=== PATIENT | female | born 1945 ===

== ENCOUNTER 2017-02-23 23:04 | Inpatient (IN) | payer MEDICAID, OTHER ==
--- NOTE | 2017-02-24 00:02 | ED PDOC ---
Arrival/HPI <LuigiSlava - Last Filed: 02/24/17 01:51> <Shivam Yin - Last Filed: 03/07/17 03:20> - General Chief Complaint: Cough, Cold, Congestion Time Seen by Provider: 02/23/17 23:11 - History of Present Illness Narrative History of Present Illness (Text): 02/23/17 23:52 72 year old female with active nasal pharyngeal cancer complaining of congestion and left ear pain. The patient's daughter is at bedside to giving most of the history due to patient deaf and difficulty talking due to jaw pain from chemo/radiation. Daughter states that the patient has been dealing with cough and congestion for about a week. She was started on Promethazine DM by Dr. Baxter 4 days ago. The patient's cough and congestion has not improved and patient is now experiencing left ear pain. When the daughter went to visit mother nikki, the mother complained of shortness of breath so she decided to call 911. Patient states she is overall weak due to starting new cycle of chemo two weeks ago. Patient denies f/c, n/v, d/c, cp, dizziness, lightheadedness. ( Shivam Yin) Past Medical History - Provider Review Nursing Documentation Reviewed: Yes - Infectious Disease Hx of Infectious Diseases: None - Cardiac Hx Cardiac Disorders: Yes Hx Hypertension: Yes - Pulmonary Hx Respiratory Disorders: No - Neurological Hx Neurological Disorder: No - HEENT Hx HEENT Disorder: Yes Other/Comment: naso-pharyngeal CA - Renal Hx Renal Disorder: No - Endocrine/Metabolic Hx Endocrine Disorders: No Hx Diabetes Mellitus Type 1: Yes - Hematological/Oncological Hx Blood Disorders: Yes Hx Cancer: Yes (naso-pharyngeal CA) - Integumentary Hx Dermatological Disorder: No - Musculoskeletal/Rheumatological Hx Musculoskeletal Disorders: No - Gastrointestinal Hx Gastrointestinal Disorders: No - Genitourinary/Gynecological Hx Genitourinary Disorders: No - Psychiatric Hx Psychophysiologic Disorder: No Hx Substance Use: No - Surgical History Hx Section: Yes Other/Comment: Neck Surgery - Anesthesia Hx Anesthesia: Yes Hx Anesthesia Reactions: No Hx Malignant Hyperthermia: No <Shivam Yin - Last Filed: 03/07/17 03:20> Family/Social History - Physician Review Nursing Documentation Reviewed: Yes Family/Social History: Unknown Family HX Smoking Status: Former Smoker Hx Alcohol Use: No Hx Substance Use: No <AnnamariaShivam - Last Filed: 03/07/17 03:20> Allergies/Home Meds <Slava Meyers - Last Filed: 02/24/17 01:51> <AnnamariaShivam - Last Filed: 03/07/17 03:20> Allergies/Adverse Reactions: Allergies No Known Allergies Allergy (Verified 02/23/17 23:18) Review of Systems - Physician Review All systems were reviewed & negative as marked: Yes - Review of Systems Constitutional: absent: Fatigue, Fevers Eyes: Normal. absent: Vision Changes, Photophobia, Eye Pain ENT: Normal, TMJ Pain, Rhinorrhea, Sinus Congestion. absent: Sore Throat Respiratory: SOB, Cough (productive, phlegm some blood (has been occuring for many months) ). absent: Wheezing Cardiovascular: absent: Chest Pain, Palpitations, Edema, Calf Pain, Syncope Gastrointestinal: absent: Abdominal Pain, Constipation, Diarrhea, Nausea, Vomiting Genitourinary Female: absent: Dysuria, Frequency, Hematuria Musculoskeletal: Myalgias Skin: absent: Rash, Pruritis, Skin Lesions Neurological: absent: Headache, Dizziness, Disequilibrium Endocrine: Normal Hemo/Lymphatic: Normal Psychiatric: Normal <AnnamariaShivam - Last Filed: 03/07/17 03:20> Physical Exam Vital Signs Reviewed: Yes Temperature: Afebrile Blood Pressure: Normal Pulse: Tachycardic Respiratory Rate: Normal Appearance: Positive for: Ill-Appearing Pain Distress: Mild Mental Status: Positive for: Alert and Oriented X 3 - Systems Exam Head: Present: Atraumatic, Normocephalic Pupils: Present: PERRL Extroacular Muscles: Present: EOMI Conjunctiva: Present: Normal Ears: Present: Fluid, Other (deaf). No: Normal Canal (unable to visualize left ear canal. 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 No: Engorged, Purulent Mucous, Septal Deviation, Epistaxis Neck: Present: Other (hard to palpation due to radiation. ). No: Normal Range of Motion Respiratory/Chest: Present: Clear to Auscultation, Rhonchi. No: Good Air Exchange, Respiratory Distress, Accessory Muscle Use, Rales, Retracting, Tachypneic, Tender to Palpation Cardiovascular: Present: Normal S1, S2, Peripheal Pulses Present, Tachycardic. No: Regular Rate and Rhythm, Murmurs, Irregular Rhythm Abdomen: Present: Normal Bowel Sounds. No: Tenderness, Distention, Peritoneal Signs, Rebound, Guarding Upper Extremity: Present: Normal Inspection, NORMAL PULSES, Capillary Refill < 2s. No: Edema Lower Extremity: Present: Normal Inspection, NORMAL PULSES, Capillary Refill < 2 s. No: Edema, CALF TENDERNESS, Tenderness Neurological: Present: GCS=15 Skin: Present: Warm, Dry, Normal Color Psychiatric: Present: Alert, Oriented x 3, Normal Insight, Normal Concentration <Shivam Yin - Last Filed: 03/07/17 03:20> Vital Signs Temp Pulse Resp BP Pulse Ox 02/24/17 02:17 104 H 16 160/78 H 93 L 02/23/17 23:21 97.9 F 110 H 18 129/75 96 Medical Decision Making - Lab Interpretations I have reviewed the lab results: Yes - RAD Interpretation Household Coordinator: ED Physician - EKG Interpretation Interpreted by ED Physician: Yes Type: 12 lead EKG <Slava Meyers - Last Filed: 02/24/17 01:51> - Lab Interpretations I have reviewed the lab results: Yes <Shivam Yin - Last Filed: 03/07/17 03:20> ED Course and Treatment: Impression: Pt seen and evaluated with medical records clerk. Pt, whose past medical history includes nasopharyngeal cancer, presented for congestion, left ear pain, and congestion. Aware and agrees with HPI, clinincal findings, plan, and management. Plan: -- EKG -- Chest X-ray -- Labs, cardiac enzymes, BNP -- IV fluids -- Reassess and disposition Reviewed EKG, sinus tachycardia at 104 bpm[address] Non-specific ST/T wave changes. 02/24/17 01:[address] Alvarado, who requests pt go to hospitalist service. 02/24/17 01:35 Case discussed with medical records clerk operations controller, who is aware and agrees with plan. Case discussed with Dr. Steinberg, who is aware and agrees with plan. Accepts pt in to hospitalist service. 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 (Slava Meyers) Congestion/SOB - CXR - no active disease - EKG - CBC - WBC17.1, Hgb 10.5 - CMP - Na 115 - started on Hypertonic sodium 3% @30ml/hr - Troponin 0.02 - BNP 142 Left ear pain - DISPO: Admit to hospitalist service. (Shivam Yin) - Lab Interpretations Microbiology Results: Microbiology Results 02/24/17 01:40 Blood Blood Culture - Final NO GROWTH AFTER 5 DAYS 02/24/17 01:40 Blood Gram Stain - Final TEST NOT PERFORMED Lab Results: 02/24/17 00:04 02/24/17 00:04 Lab Results 02/24/17 00:04: WBC 17.1 H, RBC 3.48 L, Hgb 10.5 L, Hct 29.5 L, MCV 84.8, MCH 30.2, MCHC 35.6, RDW 12.3, Plt Count 428, MPV 8.0, Gran % 92.6 H, Lymph % (Auto ) 2.9 L, Pike % (Auto) 4.2, Eos % (Auto) 0.2 L, Baso % (Auto) 0.1, Gran # 15.81 H, Lymph # 0.5 L, Pike # 0.7 H, Eos # 0.0, Baso # 0.01, Neutrophils % (Manual) 86 H, Band Neutrophils % 4 H, Lymphocytes % (Manual) 5 L, Monocytes % (Manual) 2 , Eosinophils % (Manual) 1, Metamyelocytes % 2, Platelet Evaluation Normal 02/24/17 00:04: Sodium 115 L*, Potassium 3.7, Chloride 77 L, Carbon Dioxide 30, Anion Gap 12, BUN 16, Creatinine 0.8, Est GFR ( Amer) > 60, Est GFR (Non- Af Amer) > 60, Random Glucose 245 H, Calcium 8.8, Total Bilirubin 0.3, AST 55 H , ALT 50, Alkaline Phosphatase 81, Lactate Dehydrogenase 517, Total Creatine Kinase 417 H, CK-MB (CK-2) 17.7 H, CK-MB (CK-2) % 4.2 H, Troponin I 0.02, NT-Pro -B Natriuret Pep 142, Total Protein 6.7, Albumin 3.8, Globulin 2.9, Albumin/ Globulin Ratio 1.3 - RAD Interpretation Radiology Orders: 02/23/17 23:40 CXR [CHEST PORTABLE] [RAD] Stat - Medication Orders Current Medication Orders: Discontinued Medications Albuterol/Ipratropium (Duoneb 3 Mg/0.5 Mg (3 Ml) Ud) 3 ml IH [id number] [facility] Last Admin: 03/06/17 13:21 Dose: 3 ml Amoxicillin/Clavulanate Potassium (Augmentin 875 Mg-125 Mg Tab) 1 tab PO Q12 [facility] PRN Reason: Protocol Last Admin: 03/06/17 10:22 Dose: 1 tab Bacitracin (Bacitracin) 0 gm TOP BID [facility] Last Admin: 03/06/17 10:22 Dose: 1 applic Bupivacaine HCl (Marcaine 0.5%) Confirm Administered Dose 30 ml .ROUTE .STK-MED ONE Stop: 02/27/17 07:41 Last Admin: 02/27/17 09:08 Dose: 8 ml Cefazolin Sodium (Ancef) Confirm Administered Dose 1 gm .ROUTE .STK-MED ONE Stop: 02/24/17 11:30 Ciprofloxacin/Dexamethasone (Ciprodex Otic) 4 drop ONCE ONE PRN Reason: Protocol Stop: 02/24/17 01:45 Last Admin: 02/24/17 02:16 Dose: 4 drop Ciprofloxacin/Dexamethasone (Ciprodex Otic) 4 drop AU BID [facility] Stop: 03/02/17 23:59 Last Admin: 03/02/17 19:08 Dose: Not Given Non-Admin Reason: Patient Refused Desflurane (Suprane) Confirm Administered Dose 240 ml .ROUTE .STK-MED ONE Stop: 02/27/17 09:02 Esmolol HCl (Brevibloc) Confirm Administered Dose 100 mg IV .STK-MED ONE Stop: 02/27/17 08:26 Fentanyl (Fentanyl) Confirm Administered Dose 100 mcg .ROUTE .STK-MED ONE Stop: 02/24/17 10:45 Fentanyl (Fentanyl) Confirm Administered Dose 100 mcg .ROUTE .STK-MED ONE Stop: 02/27/17 08:12 Fentanyl (Fentanyl) Confirm Administered Dose 100 mcg .ROUTE .STK-MED ONE Stop: 02/27/17 08:38 Glycopyrrolate (Robinul) Confirm Administered Dose 0.2 mg .ROUTE .STK-MED ONE Stop: 02/27/17 08:25 Glycopyrrolate (Robinul) Confirm Administered Dose 0.6 mg .ROUTE .STK-MED ONE Stop: 02/27/17 08:53 Guaifenesin (Robitussin) 100 mg PO Q8 PRN PRN Reason: Cough Last Admin: 03/04/17 14:22 Dose: 100 mg Heparin Sodium (Porcine) (Heparin) 5,000 units SC Q8 DIONI PRN Reason: Protocol Last Admin: 03/04/17 17:55 Dose: Hydralazine HCl (Apresoline) Confirm Administered Dose 20 mg .ROUTE .STK-MED ONE Stop: 02/26/17 16:05 Hydromorphone HCl (Dilaudid) 0.5 mg IVP Q15M PRN PRN Reason: Pain, moderate (4-7) Stop: 02/27/17 11:06 Last Admin: 02/27/17 09:50 Dose: 0.5 mg Hydromorphone HCl (Dilaudid) Confirm Administered Dose 0.5 mg .ROUTE .STK-MED ONE Stop: 02/27/17 09:51 Hydromorphone HCl (Dilaudid) Confirm Administered Dose 0.5 mg .ROUTE .STK-MED ONE Stop: 02/27/17 10:03 Hydromorphone HCl (Dilaudid) 0.5 mg IVP .STK-MED ONE Stop: 02/27/17 10:06 Last Admin: 02/27/17 10:05 Dose: 0.5 mg Sodium Chloride (Sodium Chloride 0.9%) 1,000 mls @ 999 mls/hr IV .Q1H1M STA Stop: 02/24/17 01:41 Last Admin: 02/24/17 00:57 Dose: 999 mls/hr eMAR Start Stop Document 02/24/17 00:57 [email or web address] (Rec: 02/24/17 00:57 [email or web address] [id number]) Intravenous Solution Start Date 02/24/17 Start Time 00:57 End Date 02/24/17 Sodium Chloride (Hypertonic Saline 3%) 500 mls @ 30 mls/hr IV .[id number] DIONI Last Admin: 02/24/17 01:51 Dose: 30 mls/hr eMAR Start Stop Document 02/24/17 01:51 [email or web address] (Rec: 02/24/17 01:52 [email or web address] [id number]) Intravenous Solution Start Date 02/24/17 Start Time 01:52 Piperacillin Sod/Tazobactam Sod (Zosyn 3.375 In Ns 100ml) 100 mls @ 200 mls/hr IV STAT STA PRN Reason: Protocol Stop: 02/24/17 02:13 Last Admin: 02/24/17 02:16 Dose: 200 mls/hr eMAR Start Stop Document 02/24/17 02:16 [email or web address] (Rec: 02/24/17 02:16 [email or web address] [id number]) Intravenous Solution Start Date 02/24/17 Start Time 02:16 End Date 02/24/17 Piperacillin Sod/Tazobactam Sod (Zosyn 3.375 In Ns 100ml) 100 mls @ 200 mls/hr IVPB Q6 DIONI PRN Reason: Protocol Stop: 03/03/17 06:01 Last Admin: 02/24/17 12:40 Dose: 200 mls/hr eMAR Start Stop Document 02/24/17 12:40 PHANT (Rec: 02/24/17 12:41 PHANT [facility] [place] [employer]) Intravenous Solution Start Date 02/24/17 Start Time 12:40 End Date 02/24/17 End time 13:40 Total Infusion Time 60 Vancomycin HCl (Vancomycin 1gm) 1 gm in 250 mls @ 167 mls/hr IVPB STAT STA PRN Reason: Protocol Stop: 02/24/17 08:49 Last Admin: 02/24/17 08:38 Dose: 167 mls/hr eMAR Start Stop Document 02/24/17 08:38 DEL (Rec: 02/24/17 08:39 DEL [id number]) Intravenous Solution Start Date 02/24/17 Start Time 08:38 End Date 02/24/17 End time 10:10 Total Infusion Time 92 Sodium Chloride (Hypertonic Saline 3%) 500 mls @ 20 mls/hr IV .Q24H DIONI Last Admin: 02/25/17 02:11 Dose: 20 mls/hr eMAR Start Stop Document 02/25/17 02:11 B.P (Rec: 02/25/17 02:11 B.P [id number]) Intravenous Solution Start Date 02/25/17 Start Time 02:11 Insulin Human Regular 100 (units/ Sodium Chloride) 100 mls @ 5 mls/hr IV .Q20H PRN; Protocol; 5 UNITS/HR PRN Reason: TITRATE PER MD ORDER Last Titration: 02/24/17 17:35 Dose: 0 units/hr, 0 mls/hr Titration Intervention Document 02/24/17 17:35 PHANT (Rec: 02/24/17 17:36 PHANT [facility]) Titration Intake Titration Intake 0.3 Cumulative Intake 30.3 Cumulative Intake (Rx) 30.3 Waste Amount 0 Container Volume 69.7 Titration Dosing Titration Dose 0 IV Rate 0 Intake/Decrease Paused Cumulative Dose 30.3 Piperacillin Sod/Tazobactam Sod (Zosyn 4.5 Gm In Ns 100ml) 4.5 gm in 100 mls @ 200 mls/hr IVPB Q6 DIONI PRN Reason: Protocol Stop: 03/03/17 18:01 Last Admin: 03/01/17 11:39 Dose: 200 mls/hr eMAR Start Stop Document 03/01/17 11:39 YD (Rec: 03/01/17 11:40 YD [id number]) Intravenous Solution Start Date 03/01/17 Start Time 11:40 Sodium Chloride (Sodium Chloride 0.9%) 1,000 mls @ 999 mls/hr IV .Q1H1M STA Stop: 02/24/17 15:00 Last Admin: 02/24/17 14:00 Dose: 999 mls/hr eMAR Start Stop Document 02/24/17 14:00 PHANT (Rec: 02/24/17 17:17 PHANT [facility]) Intravenous Solution Start Date 02/24/17 Start Time 14:00 End Date 02/24/17 End time 15:00 Total Infusion Time 60 Sodium Chloride (Sodium Chloride 0.9%) 1,000 mls @ 999 mls/hr IV .Q1H1M STA Stop: 02/24/17 19:00 Last Admin: 02/24/17 18:00 Dose: 999 mls/hr eMAR Start Stop Document 02/24/17 18:00 PHANT (Rec: 02/24/17 20:03 PHANT [facility]) Intravenous Solution Start Date 02/24/17 Start Time 18:00 End Date 02/24/17 End time 19:00 Total Infusion Time 60 Desmopressin Acetate 4 mcg/ (Sodium Chloride) 51 mls @ 100 mls/hr IV ONCE ONE Stop: 02/25/17 09:41 Last Admin: 02/25/17 10:04 Dose: 100 mls/hr eMAR Start Stop Document 02/25/17 10:04 AE (Rec: 02/25/17 10:04 AE [facility]) Intravenous Solution Start Date 02/25/17 Start Time 10:04 End Date 02/25/17 End time 11:04 Total Infusion Time 60 Dextrose (Dextrose 5% In Water 1000 Ml) 1,000 mls @ 500 mls/hr IV .Q2H DIONI Stop: 02/25/17 13:16 Last Admin: 02/25/17 13:15 Dose: 500 mls/hr eMAR Start Stop Document 02/25/17 13:15 AE (Rec: 02/25/17 14:30 AE [facility] [place]) Intravenous Solution Start Date 02/25/17 Start Time 13:15 End Date 02/25/17 End time 14:15 Total Infusion Time 60 Dextrose (Dextrose 5% In Water 1000 Ml) 1,000 mls @ 75 mls/hr IV .[id number] DIONI Last Admin: 02/25/17 18:21 Dose: 75 mls/hr eMAR Start Stop Document 02/25/17 18:21 AE (Rec: 02/25/17 18:21 AE [facility] [place]) Intravenous Solution Start Date 02/25/17 Start Time 18:21 End Date 02/26/17 End time 06:00 Total Infusion Time 699 Potassium Chloride (Potassium Chloride 10 Meq/100 Ml) 10 meq in 100 mls @ 100 mls/hr IVPB Q2H DIONI Stop: 02/26/17 09:59 Last Admin: 02/26/17 10:33 Dose: 100 mls/hr eMAR Start Stop Document 02/26/17 10:33 MMA (Rec: 02/26/17 10:34 MMA [facility] [place]) Intravenous Solution Start Date 02/26/17 Start Time 10:34 End Date 02/26/17 End time 11:34 Total Infusion Time 60 Sodium Chloride (Sodium Chloride 0.9%) 1,000 mls @ 75 mls/hr IV .[id number] DIONI Last Admin: 02/28/17 09:01 Dose: 75 mls/hr eMAR Start Stop Document 02/28/17 09:01 DH (Rec: 02/28/17 09:02 DH [id number]) Intravenous Solution Start Date 02/28/17 Start Time 07:30 Potassium Chloride (Potassium Chloride 10 Meq/100 Ml) 10 meq in 100 mls @ 100 mls/hr IVPB Q2H DIONI Stop: 02/27/17 11:44 Last Admin: 02/27/17 18:05 Dose: 100 mls/hr eMAR Start Stop Document 02/27/17 18:05 RM (Rec: 02/27/17 18:05 RM [id number]) Intravenous Solution Start Date 02/27/17 Start Time 18:05 Lactated Ringer's (Lactated Ringer's) 1,000 mls @ 75 mls/hr IV .[id number] DIONI Stop: 02/27/17 11:06 Last Admin: 02/27/17 15:05 Dose: Heparin Sodium (Porcine) (Heparin 1000 Units/500 Ml Ns) Confirm Administered Dose 500 mls @ ud IV .STK-MED ONE Stop: 02/27/17 15:27 Dextrose (Dextrose 5% In Water 1000 Ml) 1,000 mls @ 30 mls/hr IV .Q24H ONE Stop: 02/28/17 19:29 Last Admin: 02/27/17 21:44 Dose: 30 mls/hr eMAR Start Stop Document 02/27/17 21:44 BK (Rec: 02/27/17 21:53 BK [id number]) Intravenous Solution Start Date 02/27/17 Start Time 20:30 Potassium Chloride (Potassium Chloride 20 Meq/100 Ml) 20 meq in 100 mls @ 50 mls/hr IVPB ONCE ONE Stop: 02/28/17 10:12 Last Admin: 02/28/17 08:50 Dose: 50 mls/hr eMAR Start Stop Document 02/28/17 08:50 DH (Rec: 02/28/17 08:50 DH [id number]) Intravenous Solution Start Date 02/28/17 Start Time 08:50 End Date 02/28/17 End time 10:50 Total Infusion Time 120 Potassium Chloride (Potassium Chloride 20 Meq/100 Ml) 20 meq in 100 mls @ 50 mls/hr IVPB Q2H DIONI Stop: 03/01/17 01:14 Last Admin: 03/01/17 01:18 Dose: 50 mls/hr eMAR Start Stop Document 03/01/17 01:18 BK (Rec: 03/01/17 01:18 BK [id number]) Intravenous Solution Start Date 03/01/17 Start Time 01:18 End Date 03/01/17 End time 03:18 Total Infusion Time 120 Insulin Human Lispro (Humalog Med) 0 units SC ACHS DIONI PRN Reason: Protocol Last Admin: 02/24/17 08:52 Dose: Not Given Non-Admin Reason: NPO Insulin Human Regular (Humulin R Low) 0 units SC ACHS DIONI PRN Reason: Protocol Last Admin: 03/06/17 11:42 Dose: 1 units MAR Blood Glucose Document 03/06/17 11:42 AJ (Rec: 03/06/17 11:42 AJ [place] [id number]) Blood Glucose Finger Stick Blood Glucose (70-120) 191 Subcutaneous Administrations Document 03/06/17 11:42 AJ (Rec: 03/06/17 11:42 AJ [place] [id number]) Injection Site MAR Injection Site Left Abdomen Charges for Administration # of Subcutaneous Administrations 1 Lidocaine HCl (Lidocaine 2% 20ml Vial) Confirm Administered Dose 20 ml .ROUTE .STK-MED ONE Stop: 02/27/17 15:27 Lorazepam (Ativan) 0.5 mg IVP ONCE ONE PRN Reason: Protocol Stop: 02/25/17 23:50 Last Admin: 02/26/17 00:09 Dose: 0.5 mg IVP Administration Document 02/26/17 00:09 AMA (Rec: 02/26/17 00:10 AMA [id number]) Charges for Administration # of IVP Administrations 1 Behavioural Document 02/26/17 00:09 AMA (Rec: 02/26/17 00:10 AMA [id number]) Maintenance Maintenance Dose No Nonmedicinal Nonmedicinal Interventions Activity Behavior Behavior for Medication: Anxiety Re-Assess: Reassess Psych Meds Document 02/26/17 00:39 AMA (Rec: 02/26/17 04:23 AMA [id number]) Reassess Psych Med Effective Methylprednisolone (Solu-Medrol) 20 mg IVP Q8H [facility] Last Admin: 02/28/17 11:31 Dose: 20 mg IVP Administration Document 02/28/17 11:31 DH (Rec: 02/28/17 11:32 DH [place] [id number]) Charges for Administration # of IVP Administrations 1 Methylprednisolone (Solu-Medrol) 20 mg IVP BID DIONI Last Admin: 02/28/17 18:45 Dose: 20 mg IVP Administration Document 02/28/17 18:45 DH (Rec: 02/28/17 18:45 DH [place] [id number]) Charges for Administration # of IVP Administrations 1 Metoprolol Tartrate (Lopressor) 5 mg IVP Q6H PRN PRN Reason: Systolic Blood Pressure Last Admin: 03/02/17 15:33 Dose: 5 mg IVP Administration Document 03/02/17 15:33 FJA (Rec: 03/02/17 15:35 A [place] [id number]) Charges for Administration # of IVP Administrations 1 [facility] Pulse and Blood Pressure Document 03/02/17 15:33 FJA (Rec: 03/02/17 15:35 [place] [id number]) Pulse Pulse Rate (60-90) 89 Blood Pressure Blood Pressure (100/60-150/90) 167/74 Metoprolol Tartrate (Lopressor) 25 mg PO ONCE ONE Stop: 02/27/17 15:15 Last Admin: 02/27/17 17:27 Dose: Midazolam HCl (Versed Inj) Confirm Administered Dose 2 mg .ROUTE .STK-MED ONE Stop: 02/24/17 10:45 Midazolam HCl (Versed Inj) Confirm Administered Dose 2 mg .ROUTE .STK-MED ONE Stop: 02/27/17 07:42 Morphine Sulfate (Morphine) 4 mg IVP Q4H PRN PRN Reason: Pain, moderate (4-7) Last Admin: 03/01/17 11:55 Dose: 4 mg [facility] Pain Assessment Document 03/01/17 11:55 YD (Rec: 03/01/17 11:56 YD [place] [id number]) Pain Reassessment Is this a pain reassessment? No Presence of Pain Presence of Pain Yes Pain Scale Used Pain Scale Used [place] Location Pain Location Body Site Abdomen Description Description Intermittent IVP Administration Document 03/01/17 11:55 YD (Rec: 03/01/17 11:56 YD [place] [id number]) Charges for Administration # of IVP Administrations 1 Re-Assess: [facility] Pain Assessment Document 03/01/17 12:55 YD (Rec: 03/01/17 14:42 YD [id number]) Pain Reassessment Is this a pain reassessment? Yes Sleep Is patient sleeping during reassessment? No Presence of Pain Presence of Pain No Neostigmine Methylsulfate (Neostigmine Methylsulfate) Confirm Administered Dose 6 mg IV .STK-MED ONE Stop: 02/27/17 08:54 Nystatin (Nystatin Oral Susp) 5 ml PO QID [facility] Last Admin: 03/06/17 10:27 Dose: 5 ml Ondansetron HCl (Zofran Inj) Confirm Administered Dose 4 mg .ROUTE .STK-MED ONE Stop: 02/24/17 12:02 Ondansetron HCl (Zofran Inj) 4 mg IVP ONCE PRN PRN Reason: Nausea/Vomiting Pantoprazole Sodium (Protonix Inj) 40 mg IVP DAILY [facility] Last Admin: 03/06/17 10:25 Dose: 40 mg IVP Administration Document 03/06/17 10:25 AJ (Rec: 03/06/17 10:25 AJ [place] [id number]) Charges for Administration # of IVP Administrations 1 Prednisone (Prednisone Tab) 40 mg PO DAILY [facility] Last Admin: 03/03/17 09:17 Dose: 40 mg Prednisone (Prednisone Tab) 20 mg PO DAILY [facility] Stop: 03/05/17 23:59 Last Admin: 03/05/17 10:52 Dose: 20 mg Prednisone (Prednisone Tab) 10 mg PO DAILY [facility] Stop: 03/07/17 23:59 Last Admin: 03/06/17 13:12 Dose: 10 mg Propofol (Diprivan) Confirm Administered Dose 200 mg .ROUTE .STK-MED ONE Stop: 02/24/17 10:44 Propofol (Diprivan) Confirm Administered Dose 200 mg .ROUTE .STK-MED ONE Stop: 02/27/17 08:12 Rocuronium Cotton (Zemuron) Confirm Administered Dose 50 mg .ROUTE .STK-MED ONE Stop: 02/24/17 11:31 Rocuronium Cotton (Zemuron) Confirm Administered Dose 50 mg .ROUTE .STK-MED ONE Stop: 02/27/17 08:12 Sevoflurane (Ultane Novation) Confirm Administered Dose 250 ml .ROUTE .STK-MED ONE Stop: 02/27/17 07:42 Succinylcholine Chloride (Quelicin) Confirm Administered Dose 200 mg IV .STK- MED ONE Stop: 02/24/17 10:47 - PA / HANDKERCHIEF SAMPLE CLERK / Resident Statement KENISHA has reviewed & agrees with the documentation as recorded. KENISHA has examined the patient and agrees with the treatment plan. <Slava Meyers - Last Filed: 02/24/17 01:51> Disposition/Present on Arrival <Slava Meyers - Last Filed: 02/24/17 01:51> - Present on Arrival Any Indicators Present on Arrival: No History of DVT/PE: No History of Uncontrolled Diabetes: No Urinary Catheter: No History of Decub. Ulcer: No History Surgical Site Infection Following: None - Disposition Have Diagnosis and Disposition been Completed?: Yes Disposition Time: :25 Patient Plan: Admission <Shivam Yin - Last Filed: 03/07/17 03:20> - Disposition Diagnosis: Hyponatremia, Otitis externa Disposition: HOSPITALIZED Condition: GOOD
[2017-02-24 00:38] LABS: ALB/GLOB RATIO 1.3 (1.1-1.8); ALKALINE PHOSPHATASE 81 U/L (38-126); ALT/SGPT 50 U/L (7-56); AST/SGOT 55 U/L (14-36); BILIRUBIN,TOTAL 0.3 mg/dL (0.2-1.3); BLOOD UREA NITROGEN 16 mg/dL (7-21); CALCIUM 8.8 mg/dL (8.4-10.5); CARBON DIOXIDE 30 mmol/L (21-33); CHLORIDE 77 mmol/L (98-107); GFR AFRICAN-AMERICAN > 60; GLUCOSE,RANDOM 245 mg/dL (70-110); POTASSIUM 3.7 mmol/L (3.6-5.0); TOTAL PROTEIN 6.7 g/dL (5.8-8.3)
[2017-02-24] MEDS ORDERED: Sodium Chloride 0.9% 1,000 ML IV STA ×3 (00:41→18:00)
[2017-02-24 00:44] LABS: BASO # 0.01 K/mm3 (0.0-2.0); BASO % 0.1 % (0.0-3.0); EOS % 0.2 % (1.5-5.0); GRAN # 15.81 (1.4-6.5); GRAN % 92.6 % (50.0-68.0); HEMATOCRIT 29.5 % (36.0-48.0); LYMPH # 0.5 (1.2-3.4); LYMPH % 2.9 % (22.0-35.0); MEAN CELL VOLUME 84.8 fl (80.0-105.0); MEAN CORPUSCULAR HEMOGLOBIN 30.2 pg (25.0-35.0); MEAN CORPUSCULAR HGB CONC 35.6 g/dl (31.0-37.0); MONO # 0.7 (0.1-0.6); MONO % 4.2 % (1.0-6.0); PLATELET COUNT 428 10^3/uL (120.0-450.0); RED CELL DISTRIBUTION WIDTH 12.3 % (11.5-14.5); WHITE BLOOD COUNT 17.1 10^3/ul (4.5-11.0)
[2017-02-24 00:50] LABS: TROPONIN I 0.02 ng/mL
[2017-02-24 00:59] LABS: SODIUM 115 mmol/L (132-148)
[2017-02-24] MEDS ORDERED: Sodium Chloride 3% 500 ML IV SCH (01:00)
[2017-02-24 01:16] LABS: BAND 4 % (0-2); EOSINOPHIL 1 % (0.0-3.0); METAMYELOCYTE 2 %; NEUTROPHIL 86 % (50.0-70.0)
[2017-02-24 01:17] LABS: PLATELET ESTIMATE NORMAL (NORMAL)
--- NOTE | 2017-02-24 01:36 | CP.PCM.HP ---
<SANDRA TORRES - Last Filed: 02/24/17 03:04> History of Present Illness - History of Present Illness History of Present Illness: Sandra Torres, PGY1, H&P for Dr. 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 Pt has been complaining of congestion, dry cough, and left ear pain for past 4 days, for which she received promethazine DM by Dr Baxter 4 days ago. It has helped minimally. Pt also has worsenign dysphagia (due to the left ear swelling). Pt had been given a "nerve medicine" to relieve her ear pain, but it provided minimal relief. Denies f/c/n/v/d/c, cp, diaphoresis, dizziness, lightheadedness, abdominal pain , urinary symptoms, polydipsia, polyuria, leg swelling. She does c/o malaise, denies lethargy, seizure like episodes. 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 As per daughter , pt's PMD informed the pt that her Na was low 2-3 weeks ago (doesnt remember how much it was). However, no correction was made. In ED, pt's HR 110, SR, leukocytosis 17.1 with bands 4, Hgb 10.5, Na 115, Cl 77, AST 55, CK 417, neg tropx1, bnp wnl. Pt started on 3% hypertonic saline @ 30/h, received zosyn. PMHx: Htn, DM2, Dyslipidemia, Nasopharyngeal Ca (diagnosed 2014; tx'ed with 30 rounds of radiation and chemo in 2014; chemo and radiation again in 2016; with recurrence again in 2017, tx with radiation in December, last chemo 3 weeks ago). PSH: surgical resection of nasopharygeal cancer, 2016 Meds: Please obtain home meds from pt's pharmacy in AM Allergies: NKDA Fam Hx: reviewed and noncontributory Soc Hx: Denies tobacco/etoh/illicit drug use; lives in the [facility] however here now living with her daughter and undergoing treatment at [facility] Present on Admission - Present on Admission Any Indicators Present on Admission: No History of DVT/PE: No History of Uncontrolled Diabetes: No Urinary Catheter: No Decubitus Ulcer Present: No History Surgical Site Infection Following: None Review of Systems - Review of Systems All systems: reviewed and no additional remarkable complaints except Review of Systems: as per hpi Past Patient History - Infectious Disease Hx of Infectious Diseases: None - Past Social History Smoking Status: Former Smoker - CARDIAC Hx Cardiac Disorders: Yes Hx Hypertension: Yes - PULMONARY Hx Respiratory Disorders: No - NEUROLOGICAL Hx Neurological Disorder: No - HEENT Hx HEENT Problems: Yes Other/Comment: naso-pharyngeal CA - RENAL Hx Chronic Kidney Disease: No - ENDOCRINE/METABOLIC Hx Endocrine Disorders: No Hx Diabetes Mellitus Type 1: Yes - HEMATOLOGICAL/ONCOLOGICAL Hx Blood Disorders: Yes Hx Cancer: Yes (naso-pharyngeal CA) - INTEGUMENTARY Hx Dermatological Problems: No - MUSCULOSKELETAL/RHEUMATOLOGICAL Hx Musculoskeletal Disorders: No - GASTROINTESTINAL Hx Gastrointestinal Disorders: No - GENITOURINARY/GYNECOLOGICAL Hx Genitourinary Disorders: No - PSYCHIATRIC Hx Psychophysiologic Disorder: No Hx Substance Use: No - SURGICAL HISTORY Hx Section: Yes Other/Comment: Neck Surgery - ANESTHESIA Hx Anesthesia: Yes Hx Anesthesia Reactions: No Hx Malignant Hyperthermia: No Meds Allergies/Adverse Reactions: Allergies Allergy/AdvReac Type Severity Reaction Status Date / Time No Known Allergies Allergy Verified 02/23/17 23:18 Physical Exam - Constitutional Appears: Non-toxic, Older Than Stated Age, Confused, Chronically Ill - Head Exam Head Exam: ATRAUMATIC, NORMOCEPHALIC - Eye Exam Eye Exam: EOMI, PERRL. absent: Conjunctival injection, Nystagmus, Scleral icterus Pupil Exam: PERRL - ENT Exam ENT Exam: Mucous Membranes Dry - Neck Exam Neck exam: Positive for: Lymphadenopathy, Tenderness Additional comments: +Matted appearance of neck/bilateral jaw; left jaw>bigger than right. (likely from radiation therapy) - Respiratory Exam Respiratory Exam: Decreased Breath Sounds, NORMAL BREATHING PATTERN. absent: Accessory Muscle Use, Rales, Rhonchi, Wheezes - Cardiovascular Exam Cardiovascular Exam: Tachycardia, REGULAR RHYTHM, +S1, +S2. absent: Systolic Murmur - GI/Abdominal Exam GI & Abdominal Exam: Normal Bowel Sounds, Soft. absent: Distended, Guarding, Rebound, Tenderness - Extremities Exam Extremities exam: Positive for: pedal pulses present. Negative for: calf tenderness, pedal edema, tenderness - Back Exam Back exam: absent: CVA tenderness (L), CVA tenderness (R), vertebral tenderness - Neurological Exam Neurological exam: Alert, Reflexes Normal - Psychiatric Exam Psychiatric exam: Normal Affect - Skin Skin Exam: Dry, Warm Results - Vital Signs Recent Vital Signs: Last Vital Signs Temp 97.9 F 02/23/17 23:21 Pulse 110 H 02/23/17 23:21 Resp 18 02/23/17 23:21 BP 129/75 02/23/17 23:21 Pulse Ox 96 02/23/17 23:21 - Labs Result Diagrams: 02/24/17 00:04 02/24/17 00:04 Labs: Laboratory Results - last 24 hr 02/24/17 02/24/17 00:04 00:04 WBC 17.1 H RBC 3.48 L Hgb 10.5 L Hct 29.5 L MCV 84.8 MCH 30.2 MCHC 35.6 RDW 12.3 Plt Count 428 MPV 8.0 Gran % 92.6 H Lymph % (Auto) 2.9 L Navarro % (Auto) 4.2 Eos % (Auto) 0.2 L Baso % (Auto) 0.1 Gran # 15.81 H Lymph # 0.5 L Navarro # 0.7 H Eos # 0.0 Baso # 0.01 Neutrophils % (Manual) 86 H Band Neutrophils % 4 H Lymphocytes % (Manual) 5 L Monocytes % (Manual) 2 Eosinophils % (Manual) 1 Metamyelocytes % 2 Platelet Evaluation Normal Sodium 115 L* Potassium 3.7 Chloride 77 L Carbon Dioxide 30 Anion Gap 12 BUN 16 Creatinine 0.8 Est GFR ( Amer) > 60 Est GFR (Non-Af Amer) > 60 Random Glucose 245 H Calcium 8.8 Total Bilirubin 0.3 AST 55 H ALT 50 Alkaline Phosphatase 81 Lactate Dehydrogenase 517 Total Creatine Kinase 417 H CK-MB (CK-2) 17.7 H CK-MB (CK-2) % 4.2 H Troponin I 0.02 NT-Pro-B Natriuret Pep 142 Total Protein 6.7 Albumin 3.8 Globulin 2.9 Albumin/Globulin Ratio 1.3 Assessment & Plan - Assessment and Plan (Free Text) Assessment: 72F with PMH nasopharyngeal cancer, DM, HTN, admitted for sepsis 2/2 likely left ear infection, hyponatremia, anemia. Plan: Sepsis 2/2 likely left ear infection: - HR 110, SR, luekocytosis 17.1 with bands 4, L ear painful, erythematous - f/u CXR, Blood cultures, UA, urine culture - F/u ENT, ID c/s - Received Zosyn IVx1 in ED; c/w Zosyn IV and IVF Hyponatremia: - Likely chronic - Pt has AMS, some lethargy, malaise - F/u Head CT - 3% hypertonic saline @30cc/h. Goal correction: 0.5-1 mEq/L/h; </= 8-12 meq/L/ day. Or </= 18 mEQ/L in 1st 48 hours. - CMP q 4h, f/u Na level Anemia: - Hgb 10.5. likely ACD. f/u anemia workup. Hx of nasopharyngeal cancer: -F/u Dr. Baxter's recs - Last chemo 3 weeks ago; received 5 rounds of radiation therapy at [facility] in December 2016. Hx of HTN/DM: - On ISS, lopressor prn - f/u home meds in AM DVT PPX: SCDs GI PPX: Protonix Discussed with Dr Steinberg. Jocelyne Torres, PGY1 - Date & Time Date: 02/24/17 Time: 03:03 <Yulisa Steinberg - Last Filed: 02/24/17 04:01> Results - Vital Signs Recent Vital Signs: Last Vital Signs Temp 97.9 F 02/23/17 23:21 Pulse 104 H 02/24/17 02:17 Resp 17 02/24/17 02:58 BP 160/78 H 02/24/17 02:17 Pulse Ox 96 02/24/17 02:58 - Labs Result Diagrams: 02/24/17 00:04 02/24/17 00:04 Attending/Attestation - Attestation I have personally seen and examined this patient.: Yes I have fully participated in the care of the patient.: Yes I have reviewed all pertinent clinical information: Yes Notes (Text): 02/24/17 04:00 Patient was seen when she was in ER bed # 6. Agree with history, physical examination, assessment and plan.
[2017-02-24] MEDS ORDERED: Ciprofloxacin/Dexamethasone OTIC SUSP AS ONE (01:44)
[2017-02-24] MEDS ORDERED: Piperacillin/Tazobact 3.375 gm 100 ML IV STA (01:44)
[2017-02-24] MEDS: Morphine 4 mg/ml ISec IVP PRN (03:40)
[2017-02-24 04:14] VITALS: BMI 29.2
[2017-02-24 04:47] LABS: URINE BILIRUBIN NEGATIVE (NEGATIVE); URINE BLOOD TRACE-INTACT (NEGATIVE); URINE GLUCOSE (UA) 250 mg/dL (NEGATIVE); URINE KETONE NEGATIVE (NEGATIVE); URINE LEUKOCYTE ESTERASE NEGATIVE Leu/uL (NEGATIVE); URINE PROTEIN 100 mg/dL (<30 mg/dL); URINE UROBILINOGEN 0.2 E.U./dL (<1 E.U./dL)
[2017-02-24 05:02] LABS: URINE APPEARANCE SL CLOUDY (CLEAR); URINE COLOR LIGHT YELLOW (YELLOW)
[2017-02-24 05:03] LABS: URINE BACTERIA RARE (NEG); URINE EPITHELIAL CELLS 0 - 2 /hpf (0-5); URINE WBC 0 - 2 /hpf (0-6)
[2017-02-24] MEDS: Piperacillin/Tazobact 3.375 gm 100 ML IVPB SCH ×2 (06:15→12:40)
[2017-02-24] MEDS ORDERED: Vancomycin 1gm in NS 250ml 1 GM/250 ML BAG IVPB STA (07:20)
[2017-02-24] MEDS ORDERED: Insulin Lispro (humaLOG) MEDIUM Coverage SC SCH (07:30)
[2017-02-24 07:34] LABS: BLOOD UREA NITROGEN 14 mg/dL (7-21); CALCIUM 8.7 mg/dL (8.4-10.5); CARBON DIOXIDE 27 mmol/L (21-33); CHLORIDE 81 mmol/L (98-107); GFR AFRICAN-AMERICAN > 60; POTASSIUM 3.6 mmol/L (3.6-5.0)
[2017-02-24 07:56] LABS: SODIUM 120 mmol/L (132-148)
[2017-02-24 08:00] LABS: GLUCOSE,RANDOM 304 mg/dL (70-110)
[2017-02-24 08:53] LABS: ARTERIAL BLOOD GAS HCO3 30.6 mmol/L (21-28); ARTERIAL BLOOD GAS O2 CAPACITY 19.1 mL/dl (16-24); ARTERIAL BLOOD GAS O2 CONTENT 12.6 ML/dl (15-23); ARTERIAL BLOOD GAS PH 7.23 (7.35-7.45); ARTERIAL BLOOD HGB O2 SAT 64.4 % (95.0-98.0); CARBOXYHEMOGLOBIN 1.6 % (0.5-1.5); HHB 33.5 % (0-5); METHEMOGLOBIN 0.6 % (0.0-3.0)
[2017-02-24 09:00] LABS: IRON 20 ug/dL (45-180)
[2017-02-24] MEDS: Sodium Chloride 3% 500 ML IV SCH (09:02)
--- NOTE | 2017-02-24 09:14 | RAD ---
HISTORY: sob COMPARISON: 03/22/2015 FINDINGS: LUNGS: No active pulmonary disease. PLEURA: No significant pleural effusion identified, no pneumothorax apparent. CARDIOVASCULAR: Normal. OSSEOUS STRUCTURES: No significant abnormalities. VISUALIZED UPPER ABDOMEN: Normal. OTHER FINDINGS: None. IMPRESSION: No active disease.
--- NOTE | 2017-02-24 09:35 | CT ---
PROCEDURE: CT HEAD WITHOUT CONTRAST. HISTORY: AMS, lethargy COMPARISON: None available. TECHNIQUE: Axial computed tomography images were obtained through the head/brain without intravenous contrast. Radiation dose: Total exam DLP = 822 mGy-cm. This CT exam was performed using one or more of the following dose reduction techniques: Automated exposure control, adjustment of the mA and/or kV according to patient size, and/or use of iterative reconstruction technique. FINDINGS: HEMORRHAGE: No intracranial hemorrhage. BRAIN: No mass effect or edema. No atrophy or chronic microvascular ischemic changes. VENTRICLES: Unremarkable. No hydrocephalus. CALVARIUM: Unremarkable. PARANASAL SINUSES: Ethmoid and maxillary sinusitis MASTOID AIR CELLS: There is bilateral mastoiditis and opacification of the middle ear cavity and external auditory canal OTHER FINDINGS: The report concurs with the preliminary [facility] report IMPRESSION: Ethmoid and maxillary sinusitis. Bilateral otomastoiditis. No acute intracranial findings
[2017-02-24] MEDS: MethylPREDNISolone 40 mg Vial IVP SCH ×2 (10:14→17:16)
[2017-02-24] MEDS ORDERED: Propofol 10 mg/ml Inj (20 ML) ONE (10:43)
[2017-02-24] MEDS ORDERED: Midazolam 2 MG/2 ML VIAL ONE (10:44)
[2017-02-24] MEDS ORDERED: Succinylcholine 200 mg/10 ml Inj IV ONE (10:46)
[2017-02-24] MEDS ORDERED: LIDOCAIN/EPI 1-0.001% 10ML INJ SOL IJ ONE (11:20)
[2017-02-24] MEDS ORDERED: Rocuronium 10 mg/ml (5 ml) ONE (11:30)
[2017-02-24] MEDS ORDERED: Insulin Regular 100 UNITS in Sodium Chloride 0.9% 99 ML IV PRN (12:16)
[2017-02-24 12:51] LABS: BLOOD UREA NITROGEN 12 mg/dL (7-21); CALCIUM 8.1 mg/dL (8.4-10.5); CARBON DIOXIDE 22 mmol/L (21-33); CHLORIDE 89 mmol/L (98-107); GFR AFRICAN-AMERICAN > 60; GLUCOSE,RANDOM 254 mg/dL (70-110); POTASSIUM 4.1 mmol/L (3.6-5.0); SODIUM 121 mmol/L (132-148)
--- NOTE | 2017-02-24 13:10 | CP.PCM.CON ---
History of Present Illness - History of Present Illness History of Present Illness: 72 year old female with PMH of nasopharyngeal cancer on chemotherapy and was treated with radiation therapy, HTN, DM, dyslipidemia was brought in to [facility] because of generalized weakness and shortness of breath as well as dry cough. She has also been complaining of pain on her left ear as well discharge from the ear canal. She denies fever or chills, no nausea or vomiting , no abdominal pain, no diarrhea, no dysuria. She has difficulty swallowing. She was initially admitted on telemetry but was noted to be getting more tachypneic and weak there and was brought to the ICU for closer observation and management. ENT has seen the patient and she is to undergo emergency tracheostomy. Infectious Diseases consult is requested to further evaluate and manage. Review of Systems - Review of Systems All systems: reviewed and no additional remarkable complaints except (as per HPI ) Past Patient History - Infectious Disease Hx of Infectious Diseases: None - Past Social History Smoking Status: Never Smoked - CARDIAC Hx Cardiac Disorders: Yes Hx Hypertension: Yes - PULMONARY Hx Respiratory Disorders: No - NEUROLOGICAL Hx Neurological Disorder: No - HEENT Hx HEENT Problems: Yes Other/Comment: naso-pharyngeal CA - RENAL Hx Chronic Kidney Disease: No - ENDOCRINE/METABOLIC Hx Endocrine Disorders: No Hx Diabetes Mellitus Type 1: Yes - HEMATOLOGICAL/ONCOLOGICAL Hx Blood Disorders: Yes Hx Cancer: Yes (naso-pharyngeal CA) - INTEGUMENTARY Hx Dermatological Problems: No - MUSCULOSKELETAL/RHEUMATOLOGICAL Hx Musculoskeletal Disorders: No Hx Falls: No - GASTROINTESTINAL Hx Gastrointestinal Disorders: No - GENITOURINARY/GYNECOLOGICAL Hx Genitourinary Disorders: No - PSYCHIATRIC Hx Psychophysiologic Disorder: No Hx Substance Use: No - SURGICAL HISTORY Other/Comment: Neck Surgery - ANESTHESIA Hx Anesthesia: Yes Hx Anesthesia Reactions: No Hx Malignant Hyperthermia: No Meds Allergies/Adverse Reactions: Allergies Allergy/AdvReac Type Severity Reaction Status Date / Time No Known Allergies Allergy Verified 02/23/17 23:18 - Medications Medications: Current Medications Sodium Chloride (Hypertonic Saline 3%) 500 mls @ 30 mls/hr IV .[id number] [facility] Last Admin: 02/24/17 01:51 Dose: 30 mls/hr Piperacillin Sod/Tazobactam Sod (Zosyn 3.375 In Ns 100ml) 100 mls @ 200 mls/hr IVPB Q6 DIONI PRN Reason: Protocol Stop: 02/24/17 12:29 Last Admin: 02/24/17 06:15 Dose: 200 mls/hr Insulin Human Lispro (Humalog Med) 0 units SC ACHS [facility] PRN Reason: Protocol Metoprolol Tartrate (Lopressor) 5 mg IVP Q6H PRN PRN Reason: Systolic Blood Pressure Morphine Sulfate (Morphine) 4 mg IVP Q4H PRN PRN Reason: Pain, moderate (4-7) Last Admin: 02/24/17 03:40 Dose: 4 mg Physical Exam - Constitutional Appears: Other (on BiPAP, in some respiratory distress but able to speak in short sentences) - Head Exam Head Exam: NORMAL INSPECTION - ENT Exam Additional comments: serosanguinous discharge noted from the left ear canal, with surrounding swelling - Neck Exam Neck exam: Negative for: Meningismus - Respiratory Exam Respiratory Exam: Decreased Breath Sounds - Cardiovascular Exam Cardiovascular Exam: +S1, +S2 - GI/Abdominal Exam GI & Abdominal Exam: Soft. absent: Tenderness Results - Vital Signs Recent Vital Signs: Last Vital Signs Temp 98.0 F 02/24/17 03:50 Pulse 103 H 02/24/17 04:54 Resp 18 02/24/17 03:50 BP 142/75 02/24/17 03:50 Pulse Ox 96 02/24/17 02:58 - Labs Result Diagrams: 02/24/17 00:04 02/24/17 07:20 Labs: Laboratory Results - last 24 hr 02/24/17 02/24/17 02/24/17 04:15 04:15 04:15 Serum Osmolality Urine Color Light yellow Urine Appearance Sl cloudy Urine pH 7.0 Ur Specific [place] 1.015 Urine Protein 100 H Urine Glucose (UA) 250 H Urine Ketones Negative Urine Blood Trace-intact H Urine Nitrate Negative Urine Bilirubin Negative Urine Urobilinogen 0.2 Ur Leukocyte Esterase Negative Urine RBC 1 - 3 Urine WBC 0 - 2 Ur Epithelial Cells 0 - 2 Urine Bacteria Rare Urine Osmolality 269 Ur Random Sodium 37 02/24/17 06:00 Serum Osmolality 261 L Urine Color Urine Appearance Urine pH Ur Specific [place] Urine Protein Urine Glucose (UA) Urine Ketones Urine Blood Urine Nitrate Urine Bilirubin Urine Urobilinogen Ur Leukocyte Esterase Urine RBC Urine WBC Ur Epithelial Cells Urine Bacteria Urine Osmolality Ur Random Sodium Assessment & Plan - Assessment and Plan (Free Text) Plan: Assessment Sepsis probably due to otitis externa of the left ear, R/O aspiration pneumonia with respiratory distress related to nasopharyngeal carcinoma, for tracheostomy tube placement nasopharyngeal cancer on chemotherapy and was treated with radiation therapy HTN DM dyslipidemia Plan Gave a dose of IV Vancomycin and started Zosyn pending blood and cultures from the ear; patient is to get tracheostomy by ENT will monitor clinically
[2017-02-24 13:54] LABS: FOLATE > 20.0 ng/mL
--- NOTE | 2017-02-24 14:38 | CP.PCM.PN ---
Subjective - Date & Time of Evaluation Date of Evaluation: 02/24/17 Time of Evaluation: 08:00 - Subjective Subjective: patient seen and examined in room 276. Patient was lethargic. Opening her eyes for commands. Patient had morphine earlier. No significant drooling. Objective - Vital Signs/Intake and Output Vital Signs (last 24 hours): Temp Pulse Resp BP Pulse Ox 97.8 F 87 15 136/98 H 97 02/24/17 12:00 02/24/17 13:30 02/24/17 10:50 02/24/17 12:21 02/24/17 13:30 - Medications Medications: Current Medications Ciprofloxacin/Dexamethasone (Ciprodex Otic) 4 drop AU BID [facility] Stop: 03/02/17 23:59 Heparin Sodium (Porcine) (Heparin) 5,000 units SC Q8 DIONI PRN Reason: Protocol Last Admin: 02/24/17 13:00 Dose: 5,000 units Sodium Chloride (Hypertonic Saline 3%) 500 mls @ 20 mls/hr IV .Q24H [facility] Last Admin: 02/24/17 09:02 Dose: 20 mls/hr Insulin Human Regular 100 (units/ Sodium Chloride) 100 mls @ 5 mls/hr IV .Q20H PRN; Protocol; 5 UNITS/HR PRN Reason: TITRATE PER MD ORDER Last Admin: 02/24/17 12:39 Dose: 10 units/hr, 10 mls/hr Piperacillin Sod/Tazobactam Sod (Zosyn 4.5 Gm In Ns 100ml) 4.5 gm in 100 mls @ 200 mls/hr IVPB Q6 DIONI PRN Reason: Protocol Stop: 03/03/17 18:01 Methylprednisolone (Solu-Medrol) 20 mg IVP Q8H [facility] Last Admin: 02/24/17 10:14 Dose: 20 mg Metoprolol Tartrate (Lopressor) 5 mg IVP Q6H PRN PRN Reason: Systolic Blood Pressure Morphine Sulfate (Morphine) 4 mg IVP Q4H PRN PRN Reason: Pain, moderate (4-7) Last Admin: 02/24/17 03:40 Dose: 4 mg Pantoprazole Sodium (Protonix Inj) 40 mg IVP DAILY [facility] Last Admin: 02/24/17 10:19 Dose: 40 mg - Labs Labs: 02/24/17 12:30 - Constitutional Appears: Well, Non-toxic - Head Exam Head Exam: NORMAL INSPECTION Additional comments: lethargic - Eye Exam Eye Exam: Normal appearance - ENT Exam ENT Exam: Mucous Membranes Moist - Respiratory Exam Respiratory Exam: Rhonchi - Cardiovascular Exam Cardiovascular Exam: REGULAR RHYTHM - GI/Abdominal Exam GI & Abdominal Exam: Soft, Normal Bowel Sounds. absent: Tenderness - Extremities Exam Extremities Exam: absent: Pedal Edema - Neurological Exam Neurological Exam: Alert Assessment and Plan - Assessment and Plan (Free Text) Assessment: 1.Patient is a 72-year-old female with a past medical history of recurrent nasopharyngeal cancer is admitted with generalized weakness. Found to have severe hyponatremia. Started on 3% normal saline. sodium improved from 115 to 120. 2. Lethargy; head CT is negative for any acute findings. Possibly related to sepsis/hyponatremia/hypoxia. ABG ordered. PCO2 showed CO2 retention. Started on BiPAP. 2.sepsis/sinusitis; continue Vanco and Zosyn. ID evaluation requested. 3. Nasopharyngeal carcinoma; seen by ENT. Emergency tracheostomy planned. Patient's son by the bedside. 4. History of nasopharyngeal carcinoma; patient gets treatment at [facility]. Case discussed with oncologist Dr. Flowers in detail. the patient was diagnosed in 2014. Patient had 30 rounds of radiation and 6 cycles of chemotherapy in 2014. Patient had recurrence of the tumor in 2015. the patient had radiation in December this year Patient also had chemotherapy 3 weeks ago at [facility]. We will try to get records. Case discussed with circle saw operator in detail. Monitor the patient closely in ICU. prognosis is poor.
[2017-02-24] MEDS: Ciprofloxacin/Dexamethasone OTIC SUSP AU SCH (17:15)
[2017-02-24] MEDS: Piperacill/Tazo 4.5gm in NS 4.5 GM/100 ML BAG IVPB SCH ×2 (17:15→23:08)
--- NOTE | 2017-02-24 17:25 | OP ---
PROCEDURE DATE: 02/24/2017 PREOPERATIVE DIAGNOSES: Respiratory failure, history of nasopharyngeal carcinoma. POSTOPERATIVE DIAGNOSES: Respiratory failure, history of nasopharyngeal carcinoma. PROCEDURE: Tracheotomy. SURGEON: Osiel Silva DO CLIENT APPLICATION SUPPORT SPECIALIST: Dr. Eun Andrade TYPE OF ANESTHESIA: General endotracheal. COMPLICATIONS: None. CONDITION: The patient tolerated the procedure well, was sent back to the ICU in stable condition. INDICATIONS: This patient was evaluated by the department of otolaryngology. The patient has had recurrent nasopharyngeal carcinoma with extensive radiation to the neck area. The patient came into [facility] in respiratory distress. She had thick secretions noted in her nasopharynx and her oropharynx with difficulty breathing. fiberoptic nasal laryngoscopy was performed at the bedside for the patient. The patient had significant radiation changes to her larynx and neck noticed during the examination. Her airway was visualized, but there was marked edema with thick mucous throughout her nasopharynx and oropharynx. Discussion with family regarding prognosis of the patient and need for airway protection from this point on forward. Family was agreeable to perform tracheotomy. DESCRIPTION OF PROCEDURE: After informed consent was obtained from the family both daughter and son and patient, all clearly understood the risks, benefits, and alternatives performing the procedure and were agreeable to above. The patient was transported back to the operative suite. She was adequately anesthetized by the department of anesthesia via general endotracheal tube intubation. Of note, the patient did have significant trismus and the intubation was difficult for that reason. After the patient was intubated, the patient was prepped and draped in the usual sterile fashion. A 10 mL of lidocaine with epinephrine 1:100,000 solution was infiltrated to the neck. Incision was made in vertical fashion and midline. With Bovie cautery, dissection continued down through the fibrotic tissue with both Metzenbaum scissors and Bovie cautery. The midline raphe were with Bovie and sharp dissection. The thyroid was encountered. The thyroid was transected with the Bovie and trachea was visualized. Next, incision was made with an 11 blade scalpel in a T-type fashion between the second and the third tracheal ring. Next, a #5 Shiley non-fenestrated cuffed tube was placed into the airway of anesthesia through their tube. The tube was then further sewn into position after attaching to the ventilator and checking for CO2 return, which was appropriate. Rickie soft collar was applied after suturing the tracheostomy to the skin, a 4 x 4 gauze was placed under the tracheostomy. The patient tolerated the procedure well, was sent to ICU in stable condition. Osiel Silva DO
--- NOTE | 2017-02-24 17:58 | CARD ---
APPROVED REPORT EKG Measurement Heart [id number] <Conclusion> Sinus tachycardia Rightward axis Borderline ECG
--- NOTE | 2017-02-24 18:48 | CON ---
DATE: 02/24/2017 HISTORY OF PRESENT ILLNESS: This is a 72-year-old lady with history of nasopharyngeal cancer, last chemo three weeks ago, and radiation therapy into the neck area, hypertension, diabetes, who presented [place] [facility] [place] for weakness, tiredness, dry cough and congestion. She was also complaining on left ear pain for the past four days, which was getting progressively worse. The patient also started to compliant of worsening dysphagia. The patient denies fever, chills, nausea, vomiting, diarrhea, constipation, diaphoresis, dizziness, lightheadedness. The patient denies abdominal pain, urinary symptoms, polydipsia, polyuria or leg swelling. She was managed conservatively on the floor; however, today she was noted to be in respiratory distress and ICU consult was called for further management and monitoring. Upon evaluation, the patient was found to use accessory muscles, had stridor, being lethargic. Emergent admission to ICU was recommended with special attention to upper airways management. PAST MEDICAL HISTORY: Hypertension, diabetes, dyslipidemia, nasopharyngeal cancer diagnosed in 2014 and since then treated with 30 rounds of radiation and chemo. Cancer occurred in 2017. PAST SURGICAL HISTORY: Surgical resection of the nasopharyngeal cancer in 2016. ALLERGIES: NKDA. FAMILY HISTORY: Noncontributory. SOCIAL HISTORY: The patient denies alcohol or illicit drug abuse. No tobacco smoking. The patient lives in [facility]; however, moved into [facility] with her daughter and undergoing treatment at [facility]. CURRENT MEDICATIONS: Reglan, insulin sliding scale medium protocol, Solu-Medrol 20 mg IV q.8 hours, metoprolol, p.r.n. morphine, p.r.n. Protonix daily, normal saline 20 mL/hour, and Zosyn. REVIEW OF SYSTEMS: Review of 12-point review of systems other than mentioned in history of present illness is negative. PHYSICAL EXAMINATION: VITAL SIGNS: Temperature 98, heart rate 103, blood pressure 143/75, respiratory rate 30, oxygen saturation 96% on room air. HEENT: Head and neck; there is erythema, muscle wasting, and some chronic skin changes in the neck area. LUNGS: Clear to auscultation bilaterally. HEART: Regular rate and rhythm. S1 and S2 normal. ABDOMEN: Soft, nontender, and nondistended. MUSCULOSKELETAL: No C/C/E. No tenderness. NEUROLOGIC: The patient moves all extremities spontaneously. SKIN: Moist. PSYCHIATRIC: The patient is in distress due to difficulty breathing. There is rhonchi coming from upper airways and stridor. LABORATORY DATA: WBC 17.1, hemoglobin 10.5, platelet count 428. Sodium 120, potassium 3.6, chloride 81, BUN 14, creatinine 0.7, glucose 304, calcium 8.7, AST 55, ALT 50, CPK 417. ENT evaluation revealed a lot of changes consistent with XRT mucositis in the uvula and hypopharynx, a lot of secretion, swelling of the epiglottis. ASSESSMENT AND PLAN: This is a 72-year-old lady with nasopharyngeal cancer and upper airway compromise due to combination of factors including post-radiation mucositis, pharyngitis, and cancer itself. I would proceed with emergent ENT evaluation, which was done and the patient is going for emergent intubation and tracheotomy. Anesthesiologist (Dr. Pollard) on-call was contacted and evaluating the patient at bedside as well. Procedure will be done in the operating room. Meanwhile, the patient is on antibiotics and steroids. I will continue with insulin drip as the patient's blood glucose is poorly controlled even before steroids were started. I will continue with antibiotics, septic workup. I would repeat ABG after tracheotomy is done. Would continue to maintain euvolemia, euglycemia, normothermia, and oxygen saturation of more than 90%. We will continue with deep venous thrombosis and gastrointestinal prophylaxis. ccm time 40 min Efra Walker MD [facility]
--- NOTE | 2017-02-24 19:00 | CON ---
DATE: 02/24/2017 EAR, NOSE, AND THROAT CONSULTATION REFERRING PHYSICIAN: Dr. Lynn Marie. REASON FOR CONSULTATION: Tracheostomy. HISTORY OF PRESENT ILLNESS: This is a 72-year-old female with past medical history of nasopharyngeal carcinoma status post resection, radiation and chemotherapy which is most recently finished about 3 weeks ago. She was admitted to [facility] on 02/23/2017 for congestion, left ear pain and shortness of breath. Upon admission, she was admitted to the intensive care unit with the diagnoses of sepsis, hyponatremia, anemia and history of nasopharyngeal carcinoma. Course in the ICU resulted in hypercarbic respiratory failure for which she was placed on BiPAP due to respiratory failure and history of nasopharyngeal carcinoma, the ear, nose and throat team was consulted for potential tracheostomy. Upon evaluation, the patient is awake but lethargic and is on BiPAP. Direct fiberoptic laryngoscopy at the bedside demonstrates severe mucositis to the nasopharynx and oropharynx with copious secretions which would make intubation somewhat difficult. Tracheostomy was discussed with the son and 2 daughter over the phone and at the bedside. Risk and benefits were described to them in detail and they were in agreement with procedure. PAST MEDICAL HISTORY: Significant for nasopharyngeal cancer status post radiation and chemotherapy, hypertension, diabetes, and dyslipidemia. PAST SURGICAL HISTORY: Resection of nasopharyngeal cancer 2016. MEDICATIONS: Current medications include, insulin, Metoprolol, morphine, pantoprazole, methylprednisolone and Zosyn. ALLERGIES: She has no known drug allergies. SOCIAL HISTORY: Denies tobacco, alcohol or illicit drug use. He is originally from [facility]. REVIEW OF SYSTEMS: Unable to obtain at this time. OBJECTIVE GENERAL: She is awake, alert, questionable if she is oriented. She is slightly tachypneic. On BiPAP. VITAL SIGNS: Temperature of 98, pulse 103, blood pressure 142/75, respirations 18, saturations 100% on BiPAP. EYES: Extraocular movements grossly intact. EARS: There is a drainage from the left canal with debris in the canal, cannot visualize tympanic membrane. NOSE: Patent bilaterally. No discharge on the outside. No epistaxis. ORAL CAVITY AND OROPHARYNX: Lips are very dry. She has significant trismus only able to open the mouth about 2 cm. Oral mucosa is very dry and with thick purulent secretions. Uvula is midline. FACE: There is swelling to the bilateral parotid glands with edema. NECK: [place] indurated edema consistent with postradiation changes with erythema to the bilateral neck. Trachea is midline. No adenopathy palpable. RESPIRATIONS: Slightly labored. LUNGS: Clear to auscultation bilaterally. LABORATORY DATA: She has a white blood cell count 17.1, hemoglobin 10.5, hematocrit 29. She has a blood gas pCO2 73, pO2 35, pH of 7.23 and bicarbonate 32.8. Sodium is 120, potassium 3.6, chloride 81, BUN 14, creatinine 0.7, glucose 304, and calcium 8.7. IMAGING: She has a chest x-ray from 02/23/2017 which does not show any active disease. She has a head CT from 02/24/2017 which shows ethmoid and maxillary sinusitis and bilateral fluid in the mastoid air cells. PROCEDURE: Direct fiber laryngoscopy. The direct fiberoptic laryngoscope was inserted into the patient's nasal passage and attempted to pass into the nasopharynx due to severe mucositis and inflammation of the nasopharynx, the scope was unable to be pass down into the larynx through the nasopharynx. The fiberoptic laryngoscopy scope was then inserted through the oral cavity which noted to have very dry mucosa with mucoid and purulent secretions. The scope was flexed down towards the larynx which demonstrated severe radiation changes with an enlarged epiglottis with the erythematous and edematous and erythema and edema to the entire larynx. Vocal cords were visualized however, there is a lot of secretions around the entire larynx and the entire mucosa appeared very inflamed. ASSESSMENT AND PLAN: A 72-year-old female with past medical history of nasopharyngeal carcinoma, hypertension, diabetes, who is now in hypercarbic respiratory failure, requiring emergent airway due to her history of nasopharyngeal carcinoma and severe radiation changes to the nasopharynx and oropharynx. Decision, tracheostomy would be the best option to secure the airway at this point. The benefits and risks of the procedure were discussed with the family including the son and 2 daughters at the bedside and via the phone. They have signed consent which is witnessed and placed in the chart. Keep the patient n.p.o., IV fluids. Continue antibiotics and we will take her to the operating room for tracheostomy and direct laryngoscopy at this point. The further management is as per primary team and the ICU team. Thank you for allowing us to participate in this patient's care. Osiel Silva DO [facility] # [id number]
--- NOTE | 2017-02-24 21:42 | CP.PCM.CON ---
History of Present Illness - History of Present Illness History of Present Illness: 72 year old female with a history of DM, HTN, nasopharyngeal carcinoma dx in 2015, currently on salvage therapy in [place]. The patient has received surgery, radiation and chemotherapy treatments for her malignancy and was admitted with weakness, left ear pain/discharge with concern for sepsis, impending respiratory failure with airway compromise secondary to radiation treatment s/p tracheostomy. The patient is curently vented but awake. She denies significant pain and appears comfortable. Past medical history: DM, HTN, ansopharyngeal carcinoma Past surgical history: Nasopharyngeal tumor resection Family history: Denies hematologic and oncologic problems Social history: Denies tobacco, alcohol and illicit drug use. Allergies: NKA Review of systems: All remaining review of systems including HEENT, cardiovascular, respiratory, gastrointestinal, genitourinary, musculoskeletal, dermatologic, neurologic, and psychiatric are negative unless mentioned in the HPI. Past Patient History - Infectious Disease Hx of Infectious Diseases: None - Past Social History Smoking Status: Never Smoked - CARDIAC Hx Cardiac Disorders: Yes Hx Hypertension: Yes - PULMONARY Hx Respiratory Disorders: No - NEUROLOGICAL Hx Neurological Disorder: No - HEENT Hx HEENT Problems: Yes Other/Comment: naso-pharyngeal CA - RENAL Hx Chronic Kidney Disease: No - ENDOCRINE/METABOLIC Hx Endocrine Disorders: No Hx Diabetes Mellitus Type 1: Yes - HEMATOLOGICAL/ONCOLOGICAL Hx Blood Disorders: Yes Hx Cancer: Yes (naso-pharyngeal CA) - INTEGUMENTARY Hx Dermatological Problems: No - MUSCULOSKELETAL/RHEUMATOLOGICAL Hx Musculoskeletal Disorders: No Hx Falls: No - GASTROINTESTINAL Hx Gastrointestinal Disorders: No - GENITOURINARY/GYNECOLOGICAL Hx Genitourinary Disorders: No - PSYCHIATRIC Hx Psychophysiologic Disorder: No Hx Substance Use: No - SURGICAL HISTORY Other/Comment: Neck Surgery - ANESTHESIA Hx Anesthesia: Yes Hx Anesthesia Reactions: No Hx Malignant Hyperthermia: No Meds Allergies/Adverse Reactions: Allergies Allergy/AdvReac Type Severity Reaction Status Date / Time No Known Allergies Allergy Verified 02/23/17 23:18 - Medications Medications: Current Medications Ciprofloxacin/Dexamethasone (Ciprodex Otic) 4 drop AU BID DIONI Stop: 03/02/17 23:59 Last Admin: 02/24/17 17:15 Dose: 4 drop Heparin Sodium (Porcine) (Heparin) 5,000 units SC Q8 DIONI PRN Reason: Protocol Last Admin: 02/24/17 13:00 Dose: 5,000 units Sodium Chloride (Hypertonic Saline 3%) 500 mls @ 20 mls/hr IV .Q24H [facility] Last Admin: 02/24/17 09:02 Dose: 20 mls/hr Insulin Human Regular 100 (units/ Sodium Chloride) 100 mls @ 5 mls/hr IV .Q20H PRN; Protocol; 5 UNITS/HR PRN Reason: TITRATE PER MD ORDER Last Titration: 02/24/17 17:35 Dose: 0 units/hr, 0 mls/hr Piperacillin Sod/Tazobactam Sod (Zosyn 4.5 Gm In Ns 100ml) 4.5 gm in 100 mls @ 200 mls/hr IVPB Q6 DIONI PRN Reason: Protocol Stop: 03/03/17 18:01 Last Admin: 02/24/17 17:15 Dose: 200 mls/hr Methylprednisolone (Solu-Medrol) 20 mg IVP Q8H [facility] Last Admin: 02/24/17 17:16 Dose: 20 mg Metoprolol Tartrate (Lopressor) 5 mg IVP Q6H PRN PRN Reason: Systolic Blood Pressure Morphine Sulfate (Morphine) 4 mg IVP Q4H PRN PRN Reason: Pain, moderate (4-7) Last Admin: 02/24/17 03:40 Dose: 4 mg Pantoprazole Sodium (Protonix Inj) 40 mg IVP DAILY [facility] Last Admin: 02/24/17 10:19 Dose: 40 mg Results - Vital Signs Recent Vital Signs: Last Vital Signs Temp 99.5 F 02/24/17 16:30 Pulse 83 02/24/17 20:01 Resp 15 02/24/17 10:50 BP 118/59 L 02/24/17 20:01 Pulse Ox 100 02/24/17 20:01 - Labs Result Diagrams: 02/24/17 00:04 02/24/17 12:30 Labs: Laboratory Results - last 24 hr 02/24/17 02/24/17 02/24/17 04:15 04:15 04:15 pCO2 pO2 HCO3 ABG pH ABG Total CO2 ABG O2 Saturation ABG O2 Content ABG Base Excess ABG Hemoglobin ABG Carboxyhemoglobin POC ABG HHb (Measured) ABG Methemoglobin ABG O2 Capacity Hgb O2 Saturation FiO2 Sodium Potassium Chloride Carbon Dioxide Anion Gap BUN Creatinine Est GFR ( Amer) Est GFR (Non-Af Amer) POC Glucose (mg/dL) Random Glucose Serum Osmolality Calcium Iron TIBC % Saturation Ferritin Vitamin B12 Folate Procalcitonin Urine Color Light yellow Urine Appearance Sl cloudy Urine pH 7.0 Ur Specific [place] 1.015 Urine Protein 100 H Urine Glucose (UA) 250 H Urine Ketones Negative Urine Blood Trace-intact H Urine Nitrate Negative Urine Bilirubin Negative Urine Urobilinogen 0.2 Ur Leukocyte Esterase Negative Urine RBC 1 - 3 Urine WBC 0 - 2 Ur Epithelial Cells 0 - 2 Urine Bacteria Rare Urine Osmolality 269 Ur Random Sodium 37 02/24/17 02/24/17 02/24/17 06:00 06:00 06:00 pCO2 pO2 HCO3 ABG pH ABG Total CO2 ABG O2 Saturation ABG O2 Content ABG Base Excess ABG Hemoglobin ABG Carboxyhemoglobin POC ABG HHb (Measured) ABG Methemoglobin ABG O2 Capacity Hgb O2 Saturation FiO2 Sodium Potassium Chloride Carbon Dioxide Anion Gap BUN Creatinine Est GFR ( Amer) Est GFR (Non-Af Amer) POC Glucose (mg/dL) Random Glucose Serum Osmolality 261 L Calcium Iron 20 L TIBC 292 % Saturation 7 L Ferritin 146.0 Vitamin B12 829 Folate > 20.0 Procalcitonin Urine Color Urine Appearance Urine pH Ur Specific [place] Urine Protein Urine Glucose (UA) Urine Ketones Urine Blood Urine Nitrate Urine Bilirubin Urine Urobilinogen Ur Leukocyte Esterase Urine RBC Urine WBC Ur Epithelial Cells Urine Bacteria Urine Osmolality Ur Random Sodium 02/24/17 02/24/17 02/24/17 07:20 07:30 08:45 pCO2 73 H* pO2 35.0 L* HCO3 30.6 H ABG pH 7.23 L ABG Total CO2 32.8 H ABG O2 Saturation 65.8 L ABG O2 Content 12.6 L ABG Base Excess 0.9 ABG Hemoglobin 13.9 ABG Carboxyhemoglobin 1.6 H POC ABG HHb (Measured) 33.5 H ABG Methemoglobin 0.6 ABG O2 Capacity 19.1 Hgb O2 Saturation 64.4 L FiO2 21.0 Sodium 120 L Potassium 3.6 Chloride 81 L Carbon Dioxide 27 Anion Gap 16 BUN 14 Creatinine 0.7 Est GFR ( Amer) > 60 Est GFR (Non-Af Amer) > 60 POC Glucose (mg/dL) Random Glucose 304 H* D Serum Osmolality Calcium 8.7 Iron TIBC % Saturation Ferritin Vitamin B12 Folate Procalcitonin 0.12 L Urine Color Urine Appearance Urine pH Ur Specific [place] Urine Protein Urine Glucose (UA) Urine Ketones Urine Blood Urine Nitrate Urine Bilirubin Urine Urobilinogen Ur Leukocyte Esterase Urine RBC Urine WBC Ur Epithelial Cells Urine Bacteria Urine Osmolality Ur Random Sodium 02/24/17 02/24/17 02/24/17 12:30 12:38 13:09 pCO2 pO2 HCO3 ABG pH ABG Total CO2 ABG O2 Saturation ABG O2 Content ABG Base Excess ABG Hemoglobin ABG Carboxyhemoglobin POC ABG HHb (Measured) ABG Methemoglobin ABG O2 Capacity Hgb O2 Saturation FiO2 Sodium 121 L Potassium 4.1 Chloride 89 L Carbon Dioxide 22 Anion Gap 14 BUN 12 Creatinine 0.7 Est GFR ( Amer) > 60 Est GFR (Non-Af Amer) > 60 POC Glucose (mg/dL) 295 H 295 H Random Glucose 254 H Serum Osmolality Calcium 8.1 L Iron TIBC % Saturation Ferritin Vitamin B12 Folate Procalcitonin Urine Color Urine Appearance Urine pH Ur Specific [place] Urine Protein Urine Glucose (UA) Urine Ketones Urine Blood Urine Nitrate Urine Bilirubin Urine Urobilinogen Ur Leukocyte Esterase Urine RBC Urine WBC Ur Epithelial Cells Urine Bacteria Urine Osmolality Ur Random Sodium 02/24/17 02/24/17 02/24/17 14:20 15:12 16:06 pCO2 pO2 HCO3 ABG pH ABG Total CO2 ABG O2 Saturation ABG O2 Content ABG Base Excess ABG Hemoglobin ABG Carboxyhemoglobin POC ABG HHb (Measured) ABG Methemoglobin ABG O2 Capacity Hgb O2 Saturation FiO2 Sodium Potassium Chloride Carbon Dioxide Anion Gap BUN Creatinine Est GFR ( Amer) Est GFR (Non-Af Amer) POC Glucose (mg/dL) 236 H 230 H 187 H Random Glucose Serum Osmolality Calcium Iron TIBC % Saturation Ferritin Vitamin B12 Folate Procalcitonin Urine Color Urine Appearance Urine pH Ur Specific [place] Urine Protein Urine Glucose (UA) Urine Ketones Urine Blood Urine Nitrate Urine Bilirubin Urine Urobilinogen Ur Leukocyte Esterase Urine RBC Urine WBC Ur Epithelial Cells Urine Bacteria Urine Osmolality Ur Random Sodium 02/24/17 02/24/17 02/24/17 17:15 17:19 18:21 pCO2 pO2 HCO3 ABG pH ABG Total CO2 ABG O2 Saturation ABG O2 Content ABG Base Excess ABG Hemoglobin ABG Carboxyhemoglobin POC ABG HHb (Measured) ABG Methemoglobin ABG O2 Capacity Hgb O2 Saturation FiO2 Sodium Potassium Chloride Carbon Dioxide Anion Gap BUN Creatinine Est GFR ( Amer) Est GFR (Non-Af Amer) POC Glucose (mg/dL) 107 118 H Random Glucose Serum Osmolality Calcium Iron TIBC % Saturation Ferritin Vitamin B12 Folate Procalcitonin Urine Color Urine Appearance Urine pH Ur Specific [place] Urine Protein Urine Glucose (UA) Urine Ketones Urine Blood Urine Nitrate Urine Bilirubin Urine Urobilinogen Ur Leukocyte Esterase Urine RBC Urine WBC Ur Epithelial Cells Urine Bacteria Urine Osmolality Ur Random Sodium 41 02/24/17 02/24/17 02/24/17 19:44 20:24 21:14 pCO2 pO2 HCO3 ABG pH ABG Total CO2 ABG O2 Saturation ABG O2 Content ABG Base Excess ABG Hemoglobin ABG Carboxyhemoglobin POC ABG HHb (Measured) ABG Methemoglobin ABG O2 Capacity Hgb O2 Saturation FiO2 Sodium Potassium Chloride Carbon Dioxide Anion Gap BUN Creatinine Est GFR ( Amer) Est GFR (Non-Af Amer) POC Glucose (mg/dL) 122 H 140 H 163 H Random Glucose Serum Osmolality Calcium Iron TIBC % Saturation Ferritin Vitamin B12 Folate Procalcitonin Urine Color Urine Appearance Urine pH Ur Specific [place] Urine Protein Urine Glucose (UA) Urine Ketones Urine Blood Urine Nitrate Urine Bilirubin Urine Urobilinogen Ur Leukocyte Esterase Urine RBC Urine WBC Ur Epithelial Cells Urine Bacteria Urine Osmolality Ur Random Sodium Assessment & Plan (1) Anemia Assessment and Plan: will check retic count, b12, folate, ferritin 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 Status: Acute
[2017-02-24 23:30] LABS: ARTERIAL BLOOD GAS HCO3 25.4 mmol/L (21-28); ARTERIAL BLOOD GAS O2 CAPACITY 12.7 mL/dl (16-24); ARTERIAL BLOOD GAS O2 CONTENT 12.6 ML/dl (15-23); ARTERIAL BLOOD GAS PH 7.36 (7.35-7.45); ARTERIAL BLOOD HGB O2 SAT 96.8 % (95.0-98.0); CARBOXYHEMOGLOBIN 1.8 % (0.5-1.5); METHEMOGLOBIN 0.4 % (0.0-3.0)
--- NOTE | 2017-02-25 00:37 | CON ---
DATE: 02/24/2017 NEPHROLOGY CONSULTATION HISTORY OF PRESENT ILLNESS: A 72-year-old female with past medical history of nasopharyngeal cancer, last chemo three weeks ago, hypertension and diabetes, presented with generalized weakness of the past few days. The patient also with worsening dysphagia. The patient also was found to be severely hyponatremic and nephrology hence being consulted. The patient this morning, found to be very lethargic with blood gas consistent with hypercapnia; due to history of endopharyngeal CA, ENT was called and it was felt that the patient could not be intubated through the traditional endotracheal route, therefore, the patient underwent tracheostomy and was subsequently put on mechanical ventilation. Further history is limited as the patient is currently on ventilator status post tracheostomy. PAST MEDICAL HISTORY: Hypertension, diabetes, dyslipidemia, nasopharyngeal CA (diagnosed in 2014; treated with radiation and chemo in 2014; again with chemo and radiation in 2015; with recurrence again 2017 treated with radiation in December and chemo three weeks ago). PAST SURGICAL HISTORY: Surgical resection of nasopharyngeal CA in 2016. FAMILY HISTORY: Unavailable. SOCIAL HISTORY: Denies tobacco use per chart. REVIEW OF SYSTEMS: Limited as mentioned above. HEENT: Left ear pain and deafness that is progressive. RESPIRATORY: Dry cough. GASTROINTESTINAL: No nausea, vomiting or diarrhea. CARDIOPULMONARY: No chest pain. NEUROLOGIC: No dizziness. GENITOURINARY: No urinary symptoms. PHYSICAL EXAMINATION GENERAL: In no distress. Not able to converse due to tracheostomy. VITAL SIGNS: Currently, blood pressure 136/98, heart rate 81, O2 saturation 95% on 60% FiO2 via mechanical ventilation. HEENT: Moist mucous membranes. A hard mass palpated in bilateral pharyngeal area. RESPIRATORY: Lungs clear to auscultation bilaterally. No rales, no rhonchi, no wheezes. HEART: S1 and S2 normal. No murmurs, no gallops, no rubs. ABDOMEN: Distended, soft and nontender. GENITOURINARY: No bladder distention. NEUROLOGIC: Follows commands. EXTREMITIES: No leg edema. SKIN: Warm. No cyanosis. Good capillary refill. PSYCHIATRIC: Mildly agitated. LABORATORY DATA: This morning CBC: WBC 17.1, hemoglobin 10.5, hematocrit 29.5, platelets 428. Chemistry panel on this presentation; sodium 115, potassium 3.7, chloride 77, bicarbonate 30, BUN 16, creatinine 0.8, glucose 245, calcium 8.8 and albumin 3.8. Sodium improving to 121 early this afternoon. Iron studies; iron 20, TIBC 292, iron saturation 7%. Urine studies early this morning; urine osmolality 269 and urine sodium 37. ABG done this morning; pH 7.23, PCO2 73, PO2 35, bicarbonate 30.6. ASSESSMENT AND PLAN: 1. Hyponatremia: Severe in the setting of known nasopharyngeal cancer. The patient has been having dysphagia; therefore, possibility of decreased p.o. intake and subsequent volume depletion component may be present despite not being hypotensive. The patient's sodium did improve from 115 to 120 with just isotonic saline, which is more consistent with volume depletion; however, the patient may still have significant component of syndrome of inappropriate secretion of antidiuretic hormone. We will repeat urine osmolality; if urine osmolality drops significantly then syndrome of inappropriate secretion of antidiuretic hormone is not likely. Continue 3% hypertonic saline at 20 mL/hour for now. 2. Hypertension: Unclear what medication the patient was on at home. Currently on metoprolol 5 mg IV push q.6 hours p.r.n. She can continue the same if SBP is over 160. 3. Anemia: Secondary to chronic disease as well as component of iron deficiency, may benefit from IV iron. 4. Syndrome of inappropriate secretion of antidiuretic hormone: The patient with significant leukocytosis on presentation with 4% band neutrophils seen as well, however, her calcitonin level is low currently on Zosyn 4.5 g q.6 hours per ID. No renal dose adjustment needed. 5. Hypercapnic respiratory failure: Possibly due to obstruction from nasopharyngeal cancer. Metabolic alkalosis seen on chemistry panel, likely compensatory, and should improve status post mechanical ventilation. Continue to monitor partial pressure of carbon dioxide. Herminio Real MD
[2017-02-25] MEDS: MethylPREDNISolone 40 mg Vial IVP SCH ×3 (02:03→18:21)
[2017-02-25] MEDS: Sodium Chloride 3% 500 ML IV SCH (02:11)
[2017-02-25] MEDS: Piperacill/Tazo 4.5gm in NS 4.5 GM/100 ML BAG IVPB SCH ×4 (05:05→23:24)
[2017-02-25 08:51] LABS: GRAN # 17.93 (1.4-6.5); GRAN % 96.2 % (50.0-68.0); HEMATOCRIT 29.2 % (36.0-48.0); LYMPH # 0.3 (1.2-3.4); LYMPH % 1.5 % (22.0-35.0); MEAN CELL VOLUME 87.2 fl (80.0-105.0); MEAN CORPUSCULAR HEMOGLOBIN 29.6 pg (25.0-35.0); MEAN CORPUSCULAR HGB CONC 33.9 g/dl (31.0-37.0); MEAN PLATELET VOLUME 7.8 fl (7.0-11.0); MONO # 0.4 (0.1-0.6); MONO % 2.3 % (1.0-6.0); RED CELL DISTRIBUTION WIDTH 12.7 % (11.5-14.5); WHITE BLOOD COUNT 18.6 10^3/ul (4.5-11.0)
[2017-02-25 09:02] LABS: ALB/GLOB RATIO 1.1 (1.1-1.8); BILIRUBIN,TOTAL 0.3 mg/dL (0.2-1.3); CALCIUM 8.9 mg/dL (8.4-10.5); POTASSIUM 3.4 mmol/L (3.6-5.0); TOTAL PROTEIN 6.5 g/dL (5.8-8.3)
[2017-02-25] MEDS: Ciprofloxacin/Dexamethasone OTIC SUSP AU SCH ×2 (10:03→18:22)
--- NOTE | 2017-02-25 10:40 | CP.PCM.PN ---
Subjective - Date & Time of Evaluation Date of Evaluation: 02/25/17 Time of Evaluation: 09:10 - Subjective Subjective: Patient had tracheostomy done yesterday, breathing better. She communicates by pen and paper currently. States she does not have ear pain, and decrease in left ear discharge. No fevers overnight. Objective - Vital Signs/Intake and Output Vital Signs (last 24 hours): Temp Pulse Resp BP Pulse Ox 98.5 F 90 24 139/70 100 02/25/17 04:00 02/25/17 06:50 02/25/17 05:50 02/25/17 06:45 02/25/17 06:50 - Medications Medications: Current Medications Ciprofloxacin/Dexamethasone (Ciprodex Otic) 4 drop AU BID [facility] Stop: 03/02/17 23:59 Last Admin: 02/24/17 17:15 Dose: 4 drop Heparin Sodium (Porcine) (Heparin) 5,000 units SC Q8 [facility] PRN Reason: Protocol Last Admin: 02/25/17 05:05 Dose: 5,000 units Sodium Chloride (Hypertonic Saline 3%) 500 mls @ 20 mls/hr IV .Q24H [facility] Last Admin: 02/25/17 02:11 Dose: 20 mls/hr Insulin Human Regular 100 (units/ Sodium Chloride) 100 mls @ 5 mls/hr IV .Q20H PRN; Protocol; 5 UNITS/HR PRN Reason: TITRATE PER MD ORDER Last Titration: 02/24/17 17:35 Dose: 0 units/hr, 0 mls/hr Piperacillin Sod/Tazobactam Sod (Zosyn 4.5 Gm In Ns 100ml) 4.5 gm in 100 mls @ 200 mls/hr IVPB Q6 [facility] PRN Reason: Protocol Stop: 03/03/17 18:01 Last Admin: 02/25/17 05:05 Dose: 200 mls/hr Methylprednisolone (Solu-Medrol) 20 mg IVP Q8H [facility] Last Admin: 02/25/17 02:03 Dose: 20 mg Metoprolol Tartrate (Lopressor) 5 mg IVP Q6H PRN PRN Reason: Systolic Blood Pressure Morphine Sulfate (Morphine) 4 mg IVP Q4H PRN PRN Reason: Pain, moderate (4-7) Last Admin: 02/24/17 03:40 Dose: 4 mg Pantoprazole Sodium (Protonix Inj) 40 mg IVP DAILY [facility] Last Admin: 02/24/17 10:19 Dose: 40 mg - Labs Labs: 02/24/17 12:30 - Constitutional Appears: Chronically Ill - Head Exam Head Exam: NORMAL INSPECTION - ENT Exam Additional comments: swelling noted on the left sided, with decreased left ear discharge - Neck Exam Neck Exam: absent: Meningismus Additional comments: trachesotomy tube in place - Respiratory Exam Respiratory Exam: Decreased Breath Sounds - Cardiovascular Exam Cardiovascular Exam: +S1, +S2 - GI/Abdominal Exam GI & Abdominal Exam: Soft. absent: Tenderness Assessment and Plan - Assessment and Plan (Free Text) Plan: Assessment Sepsis probably due to otitis externa of the left ear, slowly improving S/P respiratory distress related to nasopharyngeal carcinoma, S/P tracheostomy tube placement POD #1 nasopharyngeal cancer on chemotherapy and was treated with radiation therapy HTN DM dyslipidemia Plan Gave a dose of IV Vancomycin and continue Zosyn day 2 pending blood and cultures from the ear; ENT also following the patient will continue to monitor clinically
[2017-02-25 12:38] LABS: ARTERIAL BLOOD GAS HCO3 24.2 mmol/L (21-28); ARTERIAL BLOOD GAS O2 CAPACITY 12.9 mL/dl (16-24); ARTERIAL BLOOD GAS O2 CONTENT 12.7 ML/dl (15-23); ARTERIAL BLOOD HGB O2 SAT 95.9 % (95.0-98.0); CARBOXYHEMOGLOBIN 1.3 % (0.5-1.5); HHB 1.5 % (0-5); METHEMOGLOBIN 1.2 % (0.0-3.0)
[2017-02-25 13:05] LABS: POTASSIUM 3.5 mmol/L (3.6-5.0)
--- NOTE | 2017-02-25 13:05 | RAD ---
HISTORY: s/p trach COMPARISON: 02/24/2017 FINDINGS: LUNGS: No active pulmonary disease. PLEURA: No significant pleural effusion identified, no pneumothorax apparent. CARDIOVASCULAR: Normal. OSSEOUS STRUCTURES: No significant abnormalities. VISUALIZED UPPER ABDOMEN: Normal. OTHER FINDINGS: None. IMPRESSION: No active disease.
--- NOTE | 2017-02-25 18:02 | CP.PCM.PN ---
<Burt Guan - Last Filed: 02/25/17 18:20> Subjective - Date & Time of Evaluation Date of Evaluation: 02/25/17 Time of Evaluation: 07:59 - Subjective Subjective: This patient was seen and examined at bedside this morning. The patient has an trach placed. The patient communicated via paper and pen due to her hearing loss. The patient reports weakness when walking. The remainder of the ROS was difficult to obtain due to her hearing loss and tracheostomy. Objective - Vital Signs/Intake and Output Vital Signs (last 24 hours): Temp Pulse Resp BP Pulse Ox 98.5 F 90 24 139/70 100 02/25/17 04:00 02/25/17 06:50 02/25/17 05:50 02/25/17 06:45 02/25/17 06:50 Intake and Output: 02/25/17 02/25/17 06:59 18:59 Intake Total 440 Output Total 400 Balance 40 - Medications Medications: Current Medications Ciprofloxacin/Dexamethasone (Ciprodex Otic) 4 drop AU BID [facility] Stop: 03/02/17 23:59 Last Admin: 02/25/17 10:03 Dose: 4 drop Heparin Sodium (Porcine) (Heparin) 5,000 units SC Q8 [facility] PRN Reason: Protocol Last Admin: 02/25/17 14:29 Dose: 5,000 units Insulin Human Regular 100 (units/ Sodium Chloride) 100 mls @ 5 mls/hr IV .Q20H PRN; Protocol; 5 UNITS/HR PRN Reason: TITRATE PER MD ORDER Last Titration: 02/24/17 17:35 Dose: 0 units/hr, 0 mls/hr Piperacillin Sod/Tazobactam Sod (Zosyn 4.5 Gm In Ns 100ml) 4.5 gm in 100 mls @ 200 mls/hr IVPB Q6 [facility] PRN Reason: Protocol Stop: 03/03/17 18:01 Last Admin: 02/25/17 12:01 Dose: 200 mls/hr Methylprednisolone (Solu-Medrol) 20 mg IVP Q8H [facility] Last Admin: 02/25/17 10:03 Dose: 20 mg Metoprolol Tartrate (Lopressor) 5 mg IVP Q6H PRN PRN Reason: Systolic Blood Pressure Morphine Sulfate (Morphine) 4 mg IVP Q4H PRN PRN Reason: Pain, moderate (4-7) Last Admin: 02/24/17 03:40 Dose: 4 mg Pantoprazole Sodium (Protonix Inj) 40 mg IVP DAILY [facility] Last Admin: 02/25/17 10:04 Dose: 40 mg - Labs Labs: 02/25/17 08:30 02/25/17 12:00 - Head Exam Head Exam: ATRAUMATIC, NORMAL INSPECTION, NORMOCEPHALIC - Eye Exam Eye Exam: EOMI, Normal appearance, PERRL Pupil Exam: NORMAL ACCOMODATION, PERRL - ENT Exam ENT Exam: Mucous Membranes Moist - Neck Exam Neck Exam: Normal Inspection Additional comments: Tracheostomy placed. - Respiratory Exam Respiratory Exam: Clear to Ausculation Bilateral, NORMAL BREATHING PATTERN. absent: Accessory Muscle Use, Chest Wall Tenderness - Cardiovascular Exam Cardiovascular Exam: REGULAR RHYTHM, +S1, +S2 - GI/Abdominal Exam GI & Abdominal Exam: Soft, Normal Bowel Sounds. absent: Guarding, Tenderness - Extremities Exam Extremities Exam: Full ROM. absent: Tenderness - Neurological Exam Neurological Exam: Alert, Awake, CN II-XII Intact - Psychiatric Exam Psychiatric exam: Normal Affect - Skin Skin Exam: Dry, Intact Assessment and Plan - Assessment and Plan (Free Text) Assessment: 1.Patient is a 72-year-old female with a past medical history of recurrent nasopharyngeal cancer is admitted with generalized weakness. Found to have severe hyponatremia Plan: Respiratory: -Patient s/p respiratory distress likely due to Nasopharyngeal carcinoma. -Patient s/p tracheotomy Day#1 -Patient vital signs are stable and patient was alert and oriented this morning. -Will continue to monitor airway management -Speech and Swallow Eval ordered. ID: Sepsis most likely d/t Otomastoiditis -Blood and ear cx are still pending. -Continue Zosyn (Day 2) -IV vancomycin started -ENT consult following. F/U with Recs. -Continue to monitor VS for signs. Cardiovascular -continue home medications Hematology/Oncology: -Patient gets treatment at [facility]. -Case discussed with oncologist Dr. Flowers in detail. -Patient diganosed in 2014 and had 30 rounds of radiation and 6 cycles of chemotherapy in 2014. Patient had recurrence of tumor in 2016. Patient recently had radiation in December(2016) and most recent chemotherapy was 3 weeks at [facility]. -Dr. [place] aware of current clinical picture. Will f/u with recs. Nephrology: Hypokalemia -K 3.3. Will replete. Will monitor with serial CMP's. GI ppx -continue protonix DVT ppx -continue SCD's <Sarah Quintero - Last Filed: 02/26/17 08:14> Objective - Vital Signs/Intake and Output Vital Signs (last 24 hours): Temp Pulse Resp BP Pulse Ox 98.4 F 65 16 174/72 H 100 02/26/17 04:00 02/26/17 06:20 02/26/17 06:00 02/26/17 06:15 02/26/17 06:20 - Medications Medications: Current Medications Ciprofloxacin/Dexamethasone (Ciprodex Otic) 4 drop AU BID [facility] Stop: 03/02/17 23:59 Last Admin: 02/25/17 18:22 Dose: 4 drop Heparin Sodium (Porcine) (Heparin) 5,000 units SC Q8 [facility] PRN Reason: Protocol Last Admin: 02/26/17 04:59 Dose: 5,000 units Insulin Human Regular 100 (units/ Sodium Chloride) 100 mls @ 5 mls/hr IV .Q20H PRN; Protocol; 5 UNITS/HR PRN Reason: TITRATE PER MD ORDER Last Titration: 02/24/17 17:35 Dose: 0 units/hr, 0 mls/hr Piperacillin Sod/Tazobactam Sod (Zosyn 4.5 Gm In Ns 100ml) 4.5 gm in 100 mls @ 200 mls/hr IVPB Q6 [facility] PRN Reason: Protocol Stop: 03/03/17 18:01 Last Admin: 02/26/17 05:00 Dose: 200 mls/hr Potassium Chloride (Potassium Chloride 10 Meq/100 Ml) 10 meq in 100 mls @ 100 mls/hr IVPB Q2H [facility] Stop: 02/26/17 09:59 Sodium Chloride (Sodium Chloride 0.9%) 1,000 mls @ 75 mls/hr IV .[id number] [facility] Methylprednisolone (Solu-Medrol) 20 mg IVP Q8H [facility] Last Admin: 02/26/17 01:08 Dose: 20 mg Metoprolol Tartrate (Lopressor) 5 mg IVP Q6H PRN PRN Reason: Systolic Blood Pressure Morphine Sulfate (Morphine) 4 mg IVP Q4H PRN PRN Reason: Pain, moderate (4-7) Last Admin: 02/24/17 03:40 Dose: 4 mg Pantoprazole Sodium (Protonix Inj) 40 mg IVP DAILY [facility] Last Admin: 02/25/17 10:04 Dose: 40 mg - Labs Labs: 02/26/17 06:25 02/26/17 06:25 Attending/Attestation - Attestation I have personally seen and examined this patient.: Yes I have fully participated in the care of the patient.: Yes I have reviewed all pertinent clinical information, including history, physical exam and plan: Yes Notes (Text): 02/26/17 08:10 Attending note ; Patient seen and examined with the resident . 1.Patient is a 72-year-old female with a past medical history of recurrent nasopharyngeal cancer is admitted with generalized weakness. Found to have severe hyponatremia. Hyponatremia resolved. Continue IV fluids. Monitor sodium closely. Nephrology evaluation appreciated. 2.sepsis/sinusitis on Otomastoiditis; continue Zosyn. Continue Ciprodex drops. ID evaluation appreciated. 3. Nasopharyngeal carcinoma; seen by ENT. Emergency tracheostomy done. Weaning trial in process. Patient's daughter by the bedside. 4. History of nasopharyngeal carcinoma; patient gets treatment at [facility]. Case discussed with oncologist Dr. Baxter in detail. 5. Surgery evaluation requested for G-tube. Speech and swallow evaluation appreciated. Patient is high-risk for aspiration. 6. Diabetes ; continue insulin drip . 7.GI prophylaxis with Protonix. The diagnosis and treatment option discussed with patient's daughter in detail. surgical services manager evaluation requested for discharge planning.
--- NOTE | 2017-02-25 18:25 | CP.PCM.PN ---
Subjective - Date & Time of Evaluation Date of Evaluation: 02/25/17 Time of Evaluation: 11:00 - Subjective Subjective: Patient not mentioning any complaints; has been communicating via writing s/p trach yesterday; has had to be suctioned frequently; Objective - Vital Signs/Intake and Output Vital Signs (last 24 hours): Temp Pulse Resp BP Pulse Ox 98.5 F 90 24 139/70 100 02/25/17 04:00 02/25/17 06:50 02/25/17 05:50 02/25/17 06:45 02/25/17 06:50 Intake and Output: 02/25/17 02/25/17 06:59 18:59 Intake Total 440 Output Total 400 Balance 40 - Medications Medications: Current Medications Ciprofloxacin/Dexamethasone (Ciprodex Otic) 4 drop AU BID [facility] Stop: 03/02/17 23:59 Last Admin: 02/25/17 18:22 Dose: 4 drop Heparin Sodium (Porcine) (Heparin) 5,000 units SC Q8 [facility] PRN Reason: Protocol Last Admin: 02/25/17 14:29 Dose: 5,000 units Insulin Human Regular 100 (units/ Sodium Chloride) 100 mls @ 5 mls/hr IV .Q20H PRN; Protocol; 5 UNITS/HR PRN Reason: TITRATE PER MD ORDER Last Titration: 02/24/17 17:35 Dose: 0 units/hr, 0 mls/hr Piperacillin Sod/Tazobactam Sod (Zosyn 4.5 Gm In Ns 100ml) 4.5 gm in 100 mls @ 200 mls/hr IVPB Q6 [facility] PRN Reason: Protocol Stop: 03/03/17 18:01 Last Admin: 02/25/17 12:01 Dose: 200 mls/hr Dextrose (Dextrose 5% In Water 1000 Ml) 1,000 mls @ 75 mls/hr IV .[id number] [facility] Last Admin: 02/25/17 18:21 Dose: 75 mls/hr Methylprednisolone (Solu-Medrol) 20 mg IVP Q8H [facility] Last Admin: 02/25/17 18:21 Dose: 20 mg Metoprolol Tartrate (Lopressor) 5 mg IVP Q6H PRN PRN Reason: Systolic Blood Pressure Morphine Sulfate (Morphine) 4 mg IVP Q4H PRN PRN Reason: Pain, moderate (4-7) Last Admin: 02/24/17 03:40 Dose: 4 mg Pantoprazole Sodium (Protonix Inj) 40 mg IVP DAILY [facility] Last Admin: 02/25/17 10:04 Dose: 40 mg - Labs Labs: 02/25/17 08:30 02/25/17 12:00 - Constitutional Appears: Non-toxic, No Acute Distress - Eye Exam Eye Exam: Normal appearance - ENT Exam ENT Exam: Mucous Membranes Moist - Neck Exam Additional comments: hard sublingual palpable mass bilaterally; - Respiratory Exam Respiratory Exam: Clear to Ausculation Bilateral. absent: Respiratory Distress - Cardiovascular Exam Cardiovascular Exam: RRR, +S1, +S2 - GI/Abdominal Exam GI & Abdominal Exam: Soft. absent: Distended - Back Exam Back Exam: NORMAL INSPECTION - Neurological Exam Neurological Exam: Alert, Awake - Skin Skin Exam: Normal Color, Warm Assessment and Plan (1) Hyponatremia Assessment & Plan: At least partially due to volume depletion (currently euvolemic); rapid overcorrection; serum sodium lowered urgently today using desmopressin and D5W boluses; repeat serum Na acceptable; repeating again this evening; goal is 6-8 meq/L rise over 24 hrs (ie. low 130's is acceptable for this evening); will continue to monitor; Status: Acute
[2017-02-25 18:27] LABS: BLOOD UREA NITROGEN 18 mg/dL (7-21); CALCIUM 8.8 mg/dL (8.4-10.5); CARBON DIOXIDE 27 mmol/L (21-33); CHLORIDE 97 mmol/L (98-107); GFR AFRICAN-AMERICAN > 60; GLUCOSE,RANDOM 233 mg/dL (70-110); POTASSIUM 3.4 mmol/L (3.6-5.0); SODIUM 132 mmol/L (132-148)
--- NOTE | 2017-02-25 21:45 | CP.PCM.CON ---
History of Present Illness - History of Present Illness History of Present Illness: General Surgery Consult Re: Gastrostomy tube placement HPI: Reviewed medical records and communicated with patient for history. 72F with nasopharyngeal carcinoma on salvage therapy. Pt has received surgery, radiation and chemotherapy treatments for her malignancy (most recently 3 weeks ago) and was admitted with weakness, left ear pain/discharge with possible sepsis, impending respiratory failure with airway compromise secondary to radiation treatment now s/p tracheostomy. Surgery consulted for G tube placement. Pt is deaf and unable to speak with recent trach so she communicated through writing. She denies significant pain and appears comfortable on the vent. Reports she has been able to eat soft foods + liquids and would like to try first before any tube is placed. A swallow eval has been ordered. PMH: DM, HTN, DLD, nasopharyngeal carcinoma PSH: Nasopharyngeal tumor resection (2016) SH: No tobacco, alcohol and illicit drug use. All: NKDA Meds: See MAR, on methylprednisolone 20mg Q8H Review of Systems - Review of Systems Review of Systems: Difficult to elucidate due to communication method. pt denied any complaints. Past Patient History - Infectious Disease Hx of Infectious Diseases: None - Past Social History Smoking Status: Never Smoked - CARDIAC Hx Cardiac Disorders: Yes Hx Hypertension: Yes - PULMONARY Hx Respiratory Disorders: No - NEUROLOGICAL Hx Neurological Disorder: No - HEENT Hx HEENT Problems: Yes Other/Comment: naso-pharyngeal CA - RENAL Hx Chronic Kidney Disease: No - ENDOCRINE/METABOLIC Hx Endocrine Disorders: No Hx Diabetes Mellitus Type 1: Yes - HEMATOLOGICAL/ONCOLOGICAL Hx Blood Disorders: Yes Hx Cancer: Yes (naso-pharyngeal CA) - INTEGUMENTARY Hx Dermatological Problems: No - MUSCULOSKELETAL/RHEUMATOLOGICAL Hx Musculoskeletal Disorders: No Hx Falls: No - GASTROINTESTINAL Hx Gastrointestinal Disorders: No - GENITOURINARY/GYNECOLOGICAL Hx Genitourinary Disorders: No - PSYCHIATRIC Hx Psychophysiologic Disorder: No Hx Substance Use: No - SURGICAL HISTORY Other/Comment: Neck Surgery - ANESTHESIA Hx Anesthesia: Yes Hx Anesthesia Reactions: No Hx Malignant Hyperthermia: No Meds Allergies/Adverse Reactions: Allergies Allergy/AdvReac Type Severity Reaction Status Date / Time No Known Allergies Allergy Verified 02/23/17 23:18 - Medications Medications: Current Medications Ciprofloxacin/Dexamethasone (Ciprodex Otic) 4 drop AU BID [facility] Stop: 03/02/17 23:59 Last Admin: 02/25/17 18:22 Dose: 4 drop Heparin Sodium (Porcine) (Heparin) 5,000 units SC Q8 [facility] PRN Reason: Protocol Last Admin: 02/25/17 14:29 Dose: 5,000 units Insulin Human Regular 100 (units/ Sodium Chloride) 100 mls @ 5 mls/hr IV .Q20H PRN; Protocol; 5 UNITS/HR PRN Reason: TITRATE PER MD ORDER Last Titration: 02/24/17 17:35 Dose: 0 units/hr, 0 mls/hr Piperacillin Sod/Tazobactam Sod (Zosyn 4.5 Gm In Ns 100ml) 4.5 gm in 100 mls @ 200 mls/hr IVPB Q6 [facility] PRN Reason: Protocol Stop: 03/03/17 18:01 Last Admin: 02/25/17 20:34 Dose: 200 mls/hr Dextrose (Dextrose 5% In Water 1000 Ml) 1,000 mls @ 75 mls/hr IV .[id number] [facility] Last Admin: 02/25/17 18:21 Dose: 75 mls/hr Methylprednisolone (Solu-Medrol) 20 mg IVP Q8H [facility] Last Admin: 02/25/17 18:21 Dose: 20 mg Metoprolol Tartrate (Lopressor) 5 mg IVP Q6H PRN PRN Reason: Systolic Blood Pressure Morphine Sulfate (Morphine) 4 mg IVP Q4H PRN PRN Reason: Pain, moderate (4-7) Last Admin: 02/24/17 03:40 Dose: 4 mg Pantoprazole Sodium (Protonix Inj) 40 mg IVP DAILY [facility] Last Admin: 02/25/17 10:04 Dose: 40 mg Physical Exam - Constitutional Appears: No Acute Distress - Head Exam Head Exam: ATRAUMATIC Additional comments: B/L lower face/jaw swelling - Eye Exam Eye Exam: EOMI, PERRL - ENT Exam ENT Exam: Mucous Membranes Dry. absent: Normal Oropharynx (limited jaw opening. difficult to visualize) - Neck Exam Neck exam: Negative for: Lymphadenopathy Additional comments: Trach tube in place, on vent - Respiratory Exam Respiratory Exam: absent: Accessory Muscle Use, Respiratory Distress - Cardiovascular Exam Cardiovascular Exam: RRR - GI/Abdominal Exam GI & Abdominal Exam: Soft. absent: Distended - Rectal Exam Rectal Exam: Deferred - Neurological Exam Neurological exam: Alert Additional comments: GCS: 11T - Skin Skin Exam: Dry, Warm Results - Vital Signs Recent Vital Signs: Last Vital Signs Temp 99 F 02/25/17 16:00 Pulse 81 02/25/17 20:00 Resp 24 02/25/17 05:50 BP 144/72 02/25/17 12:30 Pulse Ox 100 02/25/17 20:00 - Labs Result Diagrams: 02/25/17 08:30 02/25/17 18:00 Labs: Laboratory Results - last 24 hr 02/24/17 02/24/17 02/24/17 17:15 22:16 23:11 WBC RBC Hgb Hct MCV MCH MCHC RDW Plt Count MPV Gran % Lymph % (Auto) Glynn % (Auto) Eos % (Auto) Baso % (Auto) Gran # Lymph # Glynn # Eos # Baso # pCO2 pO2 HCO3 ABG pH ABG Total CO2 ABG O2 Saturation ABG O2 Content ABG Base Excess ABG Hemoglobin ABG Carboxyhemoglobin POC ABG HHb (Measured) ABG Methemoglobin ABG O2 Capacity Hgb O2 Saturation FiO2 Sodium Potassium Chloride Carbon Dioxide Anion Gap BUN Creatinine Est GFR ( Amer) Est GFR (Non-Af Amer) POC Glucose (mg/dL) 152 H 172 H Random Glucose Calcium Total Bilirubin AST ALT Alkaline Phosphatase Total Protein Albumin Globulin Albumin/Globulin Ratio Urine Osmolality 206 Ur Random Sodium 41 02/24/17 02/25/17 02/25/17 23:20 00:16 01:06 WBC RBC Hgb Hct MCV MCH MCHC RDW Plt Count MPV Gran % Lymph % (Auto) Glynn % (Auto) Eos % (Auto) Baso % (Auto) Gran # Lymph # Glynn # Eos # Baso # pCO2 45 pO2 104.0 H HCO3 25.4 ABG pH 7.36 ABG Total CO2 26.8 ABG O2 Saturation 99.0 H ABG O2 Content 12.6 L ABG Base Excess -0.2 ABG Hemoglobin 9.1 L ABG Carboxyhemoglobin 1.8 H POC ABG HHb (Measured) 1.0 ABG Methemoglobin 0.4 ABG O2 Capacity 12.7 L Hgb O2 Saturation 96.8 FiO2 50.0 Sodium Potassium Chloride Carbon Dioxide Anion Gap BUN Creatinine Est GFR ( Amer) Est GFR (Non-Af Amer) POC Glucose (mg/dL) 176 H 163 H Random Glucose Calcium Total Bilirubin AST ALT Alkaline Phosphatase Total Protein Albumin Globulin Albumin/Globulin Ratio Urine Osmolality Ur Random Sodium 02/25/17 02/25/17 02/25/17 02:05 03:08 04:00 WBC RBC Hgb Hct MCV MCH MCHC RDW Plt Count MPV Gran % Lymph % (Auto) Glynn % (Auto) Eos % (Auto) Baso % (Auto) Gran # Lymph # Glynn # Eos # Baso # pCO2 pO2 HCO3 ABG pH ABG Total CO2 ABG O2 Saturation ABG O2 Content ABG Base Excess ABG Hemoglobin ABG Carboxyhemoglobin POC ABG HHb (Measured) ABG Methemoglobin ABG O2 Capacity Hgb O2 Saturation FiO2 Sodium Potassium Chloride Carbon Dioxide Anion Gap BUN Creatinine Est GFR ( Amer) Est GFR (Non-Af Amer) POC Glucose (mg/dL) 178 H 180 H 173 H Random Glucose Calcium Total Bilirubin AST ALT Alkaline Phosphatase Total Protein Albumin Globulin Albumin/Globulin Ratio Urine Osmolality Ur Random Sodium 02/25/17 02/25/17 02/25/17 05:02 06:17 07:54 WBC RBC Hgb Hct MCV MCH MCHC RDW Plt Count MPV Gran % Lymph % (Auto) Glynn % (Auto) Eos % (Auto) Baso % (Auto) Gran # Lymph # Glynn # Eos # Baso # pCO2 pO2 HCO3 ABG pH ABG Total CO2 ABG O2 Saturation ABG O2 Content ABG Base Excess ABG Hemoglobin ABG Carboxyhemoglobin POC ABG HHb (Measured) ABG Methemoglobin ABG O2 Capacity Hgb O2 Saturation FiO2 Sodium Potassium Chloride Carbon Dioxide Anion Gap BUN Creatinine Est GFR ( Amer) Est GFR (Non-Af Amer) POC Glucose (mg/dL) 179 H 160 H 192 H Random Glucose Calcium Total Bilirubin AST ALT Alkaline Phosphatase Total Protein Albumin Globulin Albumin/Globulin Ratio Urine Osmolality Ur Random Sodium 02/25/17 02/25/17 02/25/17 08:30 08:30 11:01 WBC 18.6 H RBC 3.35 L Hgb 9.9 L Hct 29.2 L MCV 87.2 MCH 29.6 MCHC 33.9 RDW 12.7 Plt Count 424 MPV 7.8 Gran % 96.2 H Lymph % (Auto) 1.5 L Glynn % (Auto) 2.3 Eos % (Auto) 0.0 L Baso % (Auto) 0.0 Gran # 17.93 H Lymph # 0.3 L Glynn # 0.4 Eos # 0.0 Baso # 0.00 pCO2 pO2 HCO3 ABG pH ABG Total CO2 ABG O2 Saturation ABG O2 Content ABG Base Excess ABG Hemoglobin ABG Carboxyhemoglobin POC ABG HHb (Measured) ABG Methemoglobin ABG O2 Capacity Hgb O2 Saturation FiO2 Sodium 136 Potassium 3.4 L Chloride 101 Carbon Dioxide 26 Anion Gap 12 BUN 18 Creatinine 1.1 Est GFR ( Amer) 59 Est GFR (Non-Af Amer) 49 POC Glucose (mg/dL) 257 H Random Glucose 158 H Calcium 8.9 Total Bilirubin 0.3 AST 35 ALT 41 Alkaline Phosphatase 84 Total Protein 6.5 Albumin 3.4 Globulin 3.1 Albumin/Globulin Ratio 1.1 Urine Osmolality Ur Random Sodium 02/25/17 02/25/17 02/25/17 11:39 12:00 18:00 WBC RBC Hgb Hct MCV MCH MCHC RDW Plt Count MPV Gran % Lymph % (Auto) Glynn % (Auto) Eos % (Auto) Baso % (Auto) Gran # Lymph # Glynn # Eos # Baso # pCO2 39 pO2 143.0 H HCO3 24.2 ABG pH 7.40 ABG Total CO2 25.4 ABG O2 Saturation 98.5 H ABG O2 Content 12.7 L ABG Base Excess -0.5 ABG Hemoglobin 9.2 L ABG Carboxyhemoglobin 1.3 POC ABG HHb (Measured) 1.5 ABG Methemoglobin 1.2 ABG O2 Capacity 12.9 L Hgb O2 Saturation 95.9 FiO2 50.0 Sodium 133 132 Potassium 3.5 L 3.4 L Chloride 100 97 L Carbon Dioxide 25 27 Anion Gap 12 11 BUN 18 18 Creatinine 1.1 1.0 Est GFR ( Amer) 59 > 60 Est GFR (Non-Af Amer) 49 55 POC Glucose (mg/dL) Random Glucose 291 H 233 H Calcium 9.0 8.8 Total Bilirubin AST ALT Alkaline Phosphatase Total Protein Albumin Globulin Albumin/Globulin Ratio Urine Osmolality Ur Random Sodium Assessment & Plan - Assessment and Plan (Free Text) Assessment: 72F with new tracheostomy due to nasopharyngeal cancer salvage therapy causing respiratory failure. Plan: Follow up swallow eval. results. Will discuss options with patient and family afterwards. Will D/W Dr. Bill Lopez PGY4
[2017-02-26 00:51] LABS: BLOOD UREA NITROGEN 18 mg/dL (7-21); CALCIUM 8.3 mg/dL (8.4-10.5); CARBON DIOXIDE 26 mmol/L (21-33); CHLORIDE 97 mmol/L (95-110); GFR AFRICAN-AMERICAN > 60; GLUCOSE,RANDOM 216 mg/dL (70-110); POTASSIUM 3.2 mmol/L (3.6-5.0); SODIUM 130 mmol/L (132-148)
[2017-02-26] MEDS: MethylPREDNISolone 40 mg Vial IVP SCH ×3 (01:08→18:38)
[2017-02-26] MEDS: Piperacill/Tazo 4.5gm in NS 4.5 GM/100 ML BAG IVPB SCH ×4 (05:00→23:10)
[2017-02-26 07:03] LABS: BLOOD UREA NITROGEN 17 mg/dL (7-21); CALCIUM 8.6 mg/dL (8.4-10.5); CARBON DIOXIDE 29 mmol/L (21-33); CHLORIDE 97 mmol/L (98-107); GFR AFRICAN-AMERICAN > 60; GLUCOSE,RANDOM 241 mg/dL (70-110); POTASSIUM 3.4 mmol/L (3.6-5.0); SODIUM 131 mmol/L (132-148)
[2017-02-26 07:12] LABS: GRAN # 16.44 (1.4-6.5); GRAN % 96.4 % (50.0-68.0); LYMPH # 0.3 (1.2-3.4); LYMPH % 1.7 % (22.0-35.0); MEAN CORPUSCULAR HEMOGLOBIN 29.3 pg (25.0-35.0); MEAN CORPUSCULAR HGB CONC 34.1 g/dl (31.0-37.0); MEAN PLATELET VOLUME 7.9 fl (7.0-11.0); MONO # 0.3 (0.1-0.6); MONO % 1.9 % (1.0-6.0); WHITE BLOOD COUNT 17.1 10^3/ul (4.5-11.0)
--- NOTE | 2017-02-26 07:57 | CP.PCM.PN ---
Subjective - Date & Time of Evaluation Date of Evaluation: 02/26/17 Time of Evaluation: 07:54 - Subjective Subjective: General Surgery Progress note for Dr. Khan PT S&E at bedside. Patient writes that she's doing well. She has many secretions at site of trachea. Patient writes that she can eat soft foods on her own. Objective - Vital Signs/Intake and Output Vital Signs (last 24 hours): Temp Pulse Resp BP Pulse Ox 98.4 F 65 16 174/72 H 100 02/26/17 04:00 02/26/17 06:20 02/26/17 06:00 02/26/17 06:15 02/26/17 06:20 - Medications Medications: Current Medications Ciprofloxacin/Dexamethasone (Ciprodex Otic) 4 drop AU BID [facility] Stop: 03/02/17 23:59 Last Admin: 02/25/17 18:22 Dose: 4 drop Heparin Sodium (Porcine) (Heparin) 5,000 units SC Q8 [facility] PRN Reason: Protocol Last Admin: 02/26/17 04:59 Dose: 5,000 units Insulin Human Regular 100 (units/ Sodium Chloride) 100 mls @ 5 mls/hr IV .Q20H PRN; Protocol; 5 UNITS/HR PRN Reason: TITRATE PER MD ORDER Last Titration: 02/24/17 17:35 Dose: 0 units/hr, 0 mls/hr Piperacillin Sod/Tazobactam Sod (Zosyn 4.5 Gm In Ns 100ml) 4.5 gm in 100 mls @ 200 mls/hr IVPB Q6 [facility] PRN Reason: Protocol Stop: 03/03/17 18:01 Last Admin: 02/26/17 05:00 Dose: 200 mls/hr Potassium Chloride (Potassium Chloride 10 Meq/100 Ml) 10 meq in 100 mls @ 100 mls/hr IVPB Q2H [facility] Stop: 02/26/17 09:59 Sodium Chloride (Sodium Chloride 0.9%) 1,000 mls @ 75 mls/hr IV .[id number] [facility] Methylprednisolone (Solu-Medrol) 20 mg IVP Q8H [facility] Last Admin: 02/26/17 01:08 Dose: 20 mg Metoprolol Tartrate (Lopressor) 5 mg IVP Q6H PRN PRN Reason: Systolic Blood Pressure Morphine Sulfate (Morphine) 4 mg IVP Q4H PRN PRN Reason: Pain, moderate (4-7) Last Admin: 02/24/17 03:40 Dose: 4 mg Pantoprazole Sodium (Protonix Inj) 40 mg IVP DAILY [facility] Last Admin: 02/25/17 10:04 Dose: 40 mg - Labs Labs: 02/26/17 06:25 02/26/17 06:25 - Constitutional Appears: No Acute Distress - Head Exam Head Exam: NORMAL INSPECTION - Eye Exam Eye Exam: EOMI, Normal appearance - ENT Exam ENT Exam: Mucous Membranes Moist - Neck Exam Additional comments: trach in place. saturating well PPeak 14 secretions at site of insertion - Respiratory Exam Respiratory Exam: absent: Accessory Muscle Use, Respiratory Distress Additional comments: trach in place. saturating well PPeak 14 secretions at site of insertion - Cardiovascular Exam Cardiovascular Exam: REGULAR RHYTHM. absent: Bradycardia, Tachycardia - GI/Abdominal Exam GI & Abdominal Exam: Soft, Normal Bowel Sounds. absent: Rigid, Tenderness, Mass , Rebound - Extremities Exam Extremities Exam: Normal Inspection. absent: Joint Swelling, Pedal Edema - Neurological Exam Neurological Exam: Alert, Awake, Oriented x3 - Psychiatric Exam Psychiatric exam: Normal Affect, Normal Mood - Skin Skin Exam: Dry, Intact, Normal Color, Warm
[2017-02-26] MEDS: Sodium Chloride 0.9% 1,000 ML IV SCH (08:39)
--- NOTE | 2017-02-26 09:13 | RAD ---
HISTORY: vent COMPARISON: 02/25/2017 FINDINGS: LUNGS: No active pulmonary disease. PLEURA: No significant pleural effusion identified, no pneumothorax apparent. CARDIOVASCULAR: Normal. OSSEOUS STRUCTURES: No significant abnormalities. VISUALIZED UPPER ABDOMEN: Normal. OTHER FINDINGS: Tracheostomy tube in place IMPRESSION: No active disease.
[2017-02-26 09:49] LABS: CHLORIDE URINE 48 mmol/L (32-290)
--- NOTE | 2017-02-26 10:26 | CP.PCM.PN ---
<Burt uGan - Last Filed: 02/26/17 18:22> Subjective - Date & Time of Evaluation Date of Evaluation: 02/26/17 Time of Evaluation: 09:23 - Subjective Subjective: Patient was seen and examined at bedside. Per respiratory therapy patient is transitioning to a trach collar. There are alot of secretions present. Patient states that she is doing well and can eat soft food. Patient denies any other complaints. Objective - Vital Signs/Intake and Output Vital Signs (last 24 hours): Temp Pulse Resp BP Pulse Ox 98.4 F 65 16 174/72 H 100 02/26/17 04:00 02/26/17 06:20 02/26/17 06:00 02/26/17 06:15 02/26/17 06:20 - Medications Medications: Current Medications Albuterol/Ipratropium (Duoneb 3 Mg/0.5 Mg (3 Ml) Ud) 3 ml IH [id number] [facility] Ciprofloxacin/Dexamethasone (Ciprodex Otic) 4 drop AU BID [facility] Stop: 03/02/17 23:59 Last Admin: 02/25/17 18:22 Dose: 4 drop Heparin Sodium (Porcine) (Heparin) 5,000 units SC Q8 [facility] PRN Reason: Protocol Last Admin: 02/26/17 04:59 Dose: 5,000 units Insulin Human Regular 100 (units/ Sodium Chloride) 100 mls @ 5 mls/hr IV .Q20H PRN; Protocol; 5 UNITS/HR PRN Reason: TITRATE PER MD ORDER Last Titration: 02/24/17 17:35 Dose: 0 units/hr, 0 mls/hr Piperacillin Sod/Tazobactam Sod (Zosyn 4.5 Gm In Ns 100ml) 4.5 gm in 100 mls @ 200 mls/hr IVPB Q6 [facility] PRN Reason: Protocol Stop: 03/03/17 18:01 Last Admin: 02/26/17 05:00 Dose: 200 mls/hr Sodium Chloride (Sodium Chloride 0.9%) 1,000 mls @ 75 mls/hr IV .[id number] [facility] Last Admin: 02/26/17 08:39 Dose: 75 mls/hr Methylprednisolone (Solu-Medrol) 20 mg IVP Q8H [facility] Last Admin: 02/26/17 01:08 Dose: 20 mg Metoprolol Tartrate (Lopressor) 5 mg IVP Q6H PRN PRN Reason: Systolic Blood Pressure Morphine Sulfate (Morphine) 4 mg IVP Q4H PRN PRN Reason: Pain, moderate (4-7) Last Admin: 02/24/17 03:40 Dose: 4 mg Pantoprazole Sodium (Protonix Inj) 40 mg IVP DAILY [facility] Last Admin: 02/25/17 10:04 Dose: 40 mg - Labs Labs: 02/26/17 06:25 02/26/17 06:25 - Head Exam Head Exam: ATRAUMATIC, NORMAL INSPECTION, NORMOCEPHALIC - Eye Exam Eye Exam: EOMI, Normal appearance, PERRL Pupil Exam: NORMAL ACCOMODATION, PERRL - ENT Exam ENT Exam: Mucous Membranes Moist, Normal Exam. absent: Normal Oropharynx - Neck Exam Additional comments: Trach in place - Respiratory Exam Respiratory Exam: Clear to Ausculation Bilateral, Rhonchi - Cardiovascular Exam Cardiovascular Exam: REGULAR RHYTHM, RRR, +S1, +S2. absent: Rubs - GI/Abdominal Exam GI & Abdominal Exam: Soft, Normal Bowel Sounds. absent: Tenderness - Neurological Exam Neurological Exam: Alert, Awake, CN II-XII Intact - Skin Skin Exam: Dry, Intact Assessment and Plan - Assessment and Plan (Free Text) Assessment: 1.Patient is a 72-year-old female with a past medical history of recurrent nasopharyngeal cancer is admitted with generalized weakness. Found to have severe hyponatremia Plan: Respiratory: -Patient s/p respiratory distress likely due to Nasopharyngeal carcinoma. -Patient s/p tracheotomy Day#1 -Patient vital signs are stable and patient was alert and oriented this morning. -Will continue to monitor airway management -Speech and Swallow Eval: Patient can swallow soft foods with no difficulty. Will continue to closeley monitor. ID: Sepsis most likely d/t Otomastoiditis -Blood and ear cx are still pending. -Continue Zosyn (Day 3) -Continue IV vancomycin -ENT consult following. F/U with Recs. -Continue to monitor VS for signs. Cardiovascular -continue home medications Hematology/Oncology: -Patient gets treatment at [facility]. -Case discussed with oncologist Dr. Flowers in detail. -Patient diagnosed in 2014 and had 30 rounds of radiation and 6 cycles of chemotherapy in 2014. Patient had recurrence of tumor in 2016. Patient recently had radiation in December(2016) and most recent chemotherapy was 3 weeks at [facility]. -Was able to confirm home medications with Patient's relative. Called Dr. Varela her primary Oncologist however was unable to reach him. Will attempt again tomorrow morning. -Dr. Baxter aware of current clinical picture. Will f/u with recs. Nephrology: Hypokalemia -K 3.4. Will replete. Will monitor with serial CMP's. GI ppx -continue protonix DVT ppx -continue SCD's <Sarah Quintero - Last Filed: 02/27/17 16:50> Objective - Vital Signs/Intake and Output Vital Signs (last 24 hours): Temp Pulse Resp BP Pulse Ox 97.9 F 80 14 179/78 H 96 02/27/17 10:36 02/27/17 12:00 02/27/17 10:36 02/27/17 10:36 02/27/17 10:36 Intake and Output: 02/27/17 02/27/17 06:59 18:59 Intake Total 2150 Output Total 2600 Balance -450 - Medications Medications: Current Medications Albuterol/Ipratropium (Duoneb 3 Mg/0.5 Mg (3 Ml) Ud) 3 ml IH [id number] [facility] Last Admin: 02/27/17 13:28 Dose: 3 ml Ciprofloxacin/Dexamethasone (Ciprodex Otic) 4 drop AU BID [facility] Stop: 03/02/17 23:59 Last Admin: 02/26/17 18:45 Dose: 4 drop Heparin Sodium (Porcine) (Heparin) 5,000 units SC Q8 [facility] PRN Reason: Protocol Last Admin: 02/27/17 05:25 Dose: 5,000 units Piperacillin Sod/Tazobactam Sod (Zosyn 4.5 Gm In Ns 100ml) 4.5 gm in 100 mls @ 200 mls/hr IVPB Q6 [facility] PRN Reason: Protocol Stop: 03/03/17 18:01 Last Admin: 02/27/17 05:25 Dose: 200 mls/hr Sodium Chloride (Sodium Chloride 0.9%) 1,000 mls @ 75 mls/hr IV .[id number] [facility] Last Admin: 02/27/17 02:48 Dose: 75 mls/hr Insulin Human Regular (Humulin R Low) 0 units SC ACHS [facility] PRN Reason: Protocol Last Admin: 02/27/17 12:20 Dose: 3 units Methylprednisolone (Solu-Medrol) 20 mg IVP Q8H [facility] Last Admin: 02/27/17 02:46 Dose: 20 mg Metoprolol Tartrate (Lopressor) 5 mg IVP Q6H PRN PRN Reason: Systolic Blood Pressure Morphine Sulfate (Morphine) 4 mg IVP Q4H PRN PRN Reason: Pain, moderate (4-7) Last Admin: 02/24/17 03:40 Dose: 4 mg Nystatin (Nystatin Oral Susp) 5 ml PO QID [facility] Last Admin: 02/26/17 23:10 Dose: 5 ml Ondansetron HCl (Zofran Inj) 4 mg IVP ONCE PRN PRN Reason: Nausea/Vomiting Pantoprazole Sodium (Protonix Inj) 40 mg IVP DAILY [facility] Last Admin: 02/26/17 10:38 Dose: 40 mg - Labs Labs: 02/27/17 05:10 02/27/17 05:10 Attending/Attestation - Attestation I have personally seen and examined this patient.: Yes I have fully participated in the care of the patient.: Yes I have reviewed all pertinent clinical information, including history, physical exam and plan: Yes Notes (Text): 02/27/17 14:15 Attending note ; Patient seen and examined with the resident. 1.Patient is a 72-year-old female with a past medical history of recurrent nasopharyngeal cancer is admitted with generalized weakness. Found to have severe hyponatremia. Hyponatremia resolved. Continue IV fluids. Monitor sodium closely. Nephrology evaluation appreciated. 2.sepsis/sinusitis on Otomastoiditis; continue Zosyn. Continue Ciprodex drops. ID evaluation appreciated. 3. Nasopharyngeal carcinoma; seen by ENT. Emergency tracheostomy done. Currently on trach collar. Needs outpatient audiogram and close follow-up with ENT. Patient's daughter by the bedside. 4. History of nasopharyngeal carcinoma; patient gets treatment at [facility]. Case discussed with oncologist Dr. Baxter in detail. Family is willing to switch care to local oncologist Dr. Baxter. 5. Surgery evaluation appreciated. Plan for G-tube soon. Speech and swallow evaluation appreciated. Patient is high-risk for aspiration. 6. Diabetes ; continue insulin drip . 7.GI prophylaxis with Protonix. The diagnosis and treatment option discussed with patient's daughter in detail. senior account manager evaluation requested for discharge planning.
[2017-02-26] MEDS: Ciprofloxacin/Dexamethasone OTIC SUSP AU SCH ×2 (10:37→18:45)
--- NOTE | 2017-02-26 11:24 | PN ---
DATE: 02/26/2017 SUBJECTIVE: The patient is in bed, in no acute distress, was seen in the ICU 129, bed 2, and it seemed to be no fevers, no chills. PHYSICAL EXAMINATION: VITAL SIGNS: Temperature is 98, blood pressure is 174/70, respiratory rate of 16. HEENT: Unremarkable. NECK: Supple. LUNGS: Decreased breath sounds. HEART: Normal S1 and S2. ABDOMEN: Soft, nontender. LABORATORY DATA: White count 17,000, hemoglobin of , platelets of 408. Chemistries reveal a BUN of 17, creatinine of 1.0. Procalcitonin is 0.12. Urinalysis is noted. Microbiology reveals the blood cultures are no growth, urine cultures are no growth. Nasal MRSA is negative. Chest x-ray reveals no active pulmonary disease. ASSESSMENT AND PLAN: A 72-year-old female with sepsis due to otitis externa in left ear, slowly improving, respiratory distress, nasopharyngeal carcinoma, status post trach tube, post procedure day #2, on chemotherapy for nasopharyngeal carcinoma and radiation and the patient with hypertension, diabetes, on intermittent vancomycin and Zosyn day #3. The patient is also on Solu-Medrol, which may explain the persistent leukocytosis. We will follow closely with you. Miguel Bethea MD
[2017-02-26] MEDS: Insulin Reg-LOW-Coverage SC SCH ×3 (11:33→23:08)
[2017-02-26 11:38] LABS: BLOOD UREA NITROGEN 17 mg/dL (7-21); CALCIUM 8.9 mg/dL (8.4-10.5); CARBON DIOXIDE 26 mmol/L (21-33); CHLORIDE 96 mmol/L (98-107); GFR AFRICAN-AMERICAN > 60; GLUCOSE,RANDOM 224 mg/dL (70-110); POTASSIUM 3.9 mmol/L (3.6-5.0); SODIUM 131 mmol/L (132-148)
[2017-02-26] MEDS: Albuterol-Ipratrop 3 mg / 0.5 (3 ml) UD IH SCH ×2 (13:06→20:10)
--- NOTE | 2017-02-26 17:52 | CP.CCUPN ---
CCU Subjective - Physician Review Events Since Last Encounter (Free Text): 02/26/17 17:47 No acute events overnight Remained on Vent overnight. This morning transitioned to CPAP to T.C Currently tolerating TC well. CCU Objective - Vital Signs / Intake & Output Intake and Output (Last 8hrs): Intake & Output 02/26/17 02/26/17 02/26/17 06:59 14:59 22:59 Weight 130 lb 14.4 oz Other: Voiding Method Diaper - Physical Exam Head: Positive for: Atraumatic, Normocephalic Pupils: Positive for: PERRL Extroacular Muscles: Positive for: EOMI Conjunctiva: Positive for: Normal Ears: Positive for: Fluid, Other (deaf). Negative for: Normal Canal (unable to visualize left ear canal. ) Mouth: Positive for: Moist Mucous Membranes, Dry, Trismus (2/2 radiation) Pharnyx: Positive for: Other (trach present #6) Nose (External): Positive for: Atraumatic Nose (Internal): Positive for: No Active Bleeding, Moist, Rhinorrhea. Negative for: Engorged, Purulent Mucous, Septal Deviation, Epistaxis Neck: Positive for: Other (hard to palpation due to radiation. ). Negative for : Normal Range of Motion Respiratory/Chest: Positive for: Clear to Auscultation, Rhonchi. Negative for: Good Air Exchange, Respiratory Distress, Accessory Muscle Use, Rales, Retracting , Tachypneic, Tender to Palpation Cardiovascular: Positive for: Normal S1, S2, Peripheal Pulses Present, Tachycardic. Negative for: Regular Rate and Rhythm, Murmurs, Irregular Rhythm Abdomen: Positive for: Normal Bowel Sounds. Negative for: Tenderness, Distention, Peritoneal Signs, Rebound, Guarding Upper Extremity: Positive for: Normal Inspection, NORMAL PULSES, Capillary Refill < 2s. Negative for: Edema Lower Extremity: Positive for: Normal Inspection, NORMAL PULSES, Capillary Refill < 2 s. Negative for: Edema, CALF TENDERNESS, Tenderness Neurological: Positive for: GCS=15 Skin: Positive for: Warm, Dry, Normal Color Psychiatric: Positive for: Alert, Oriented x 3, Normal Insight, Normal Concentration - Medications Active Medications: Active Medications Generic Name Dose Route Start Last Admin Trade Name Freq PRN Reason Stop Dose Admin Albuterol/Ipratropium 3 ml 02/26/17 14:00 02/26/17 13:06 Duoneb 3 Mg/0.5 Mg (3 Ml) Ud IH 3 ml [id number] [facility]IONI Administration Ciprofloxacin/Dexamethasone 4 drop 02/24/17 18:00 02/26/17 10:37 Ciprodex Otic AU 03/02/17 23:59 4 drop BID [facility] Administration Heparin Sodium (Porcine) 5,000 units 02/24/17 14:00 02/26/17 04:59 Heparin SC 5,000 units Q8 [facility] Administration Protocol Piperacillin Sod/Tazobactam Sod 4.5 gm in 100 mls @ 200 mls/hr 02/24/17 18:00 02/26/17 11:30 Zosyn 4.5 Gm In Ns 100ml IVPB 03/03/17 18:01 200 mls/hr Q6 [facility] Administration Protocol Sodium Chloride 1,000 mls @ 75 mls/hr 02/26/17 07:30 02/26/17 08:39 Sodium Chloride 0.9% IV 75 mls/hr .[id number] [facility] Administration Insulin Human Regular 0 units 02/26/17 11:30 02/26/17 11:33 Humulin R Low SC 3 units ACHS [facility] Administration Protocol Methylprednisolone 20 mg 02/24/17 10:00 02/26/17 10:37 Solu-Medrol IVP 20 mg Q8H [facility] Administration Metoprolol Tartrate 5 mg 02/24/17 02:35 Lopressor IVP Q6H PRN Systolic Blood Pressure Morphine Sulfate 4 mg 02/24/17 02:34 02/24/17 03:40 Morphine IVP 4 mg Q4H PRN Administration Pain, moderate (4-7) Nystatin 5 ml 02/26/17 14:00 Nystatin Oral Susp PO QID [facility] Pantoprazole Sodium 40 mg 02/24/17 10:15 02/26/17 10:38 Protonix Inj IVP 40 mg DAILY [facility] Administration - Patient Studies Lab Studies: Microbiology Studies 02/24/17 02:10 Blood Culture - Preliminary Blood NO GROWTH AFTER 48 HOURS Lab Studies 02/26/17 02/26/17 02/26/17 Range/Units 11:25 11:03 07:56 WBC (4.5-11.0) 10^3/ul RBC (3.5-6.1) 10^6/uL Hgb (12.0-16.0) g/dL Hct (36.0-48.0) % MCV (80.0-105.0) fl MCH (25.0-35.0) pg MCHC (31.0-37.0) g/dl RDW (11.5-14.5) % Plt Count (120.0-450.0) 10^3/uL MPV (7.0-11.0) fl Gran % (50.0-68.0) % Lymph % (Auto) (22.0-35.0) % [place] % (Auto) (1.0-6.0) % Eos % (Auto) (1.5-5.0) % Baso % (Auto) (0.0-3.0) % Gran # (1.4-6.5) Lymph # (1.2-3.4) [place] # (0.1-0.6) Eos # (0.0-0.7) Baso # (0.0-2.0) K/mm3 Sodium 131 L (132-148) mmol/L Potassium 3.9 (3.6-5.0) mmol/L Chloride 96 L (98-107) mmol/L Carbon Dioxide 26 (21-33) mmol/L Anion Gap 13 (10-20) BUN 17 (7-21) mg/dL Creatinine 1.0 (0.5-1.4) mg/dL Est GFR ( Amer) > 60 Est GFR (Non-Af Amer) 55 POC Glucose (mg/dL) 257 H 266 H (65-110) mg/dL Random Glucose 224 H (70-110) mg/dL Calcium 8.9 (8.4-10.5) mg/dL Urine Osmolality (50-645) mosm/kg Ur Random Sodium meq/L Urine Chloride (32-290) mmol/L 02/26/17 02/26/17 02/26/17 Range/Units 06:25 06:25 00:20 WBC 17.1 H (4.5-11.0) 10^3/ul RBC 3.14 L (3.5-6.1) 10^6/uL Hgb 9.2 L (12.0-16.0) g/dL Hct 27.0 L (36.0-48.0) % MCV 86.0 (80.0-105.0) fl MCH 29.3 (25.0-35.0) pg MCHC 34.1 (31.0-37.0) g/dl RDW 13.0 (11.5-14.5) % Plt Count 408 (120.0-450.0) 10^3/uL MPV 7.9 (7.0-11.0) fl Gran % 96.4 H (50.0-68.0) % Lymph % (Auto) 1.7 L (22.0-35.0) % [place] % (Auto) 1.9 (1.0-6.0) % Eos % (Auto) 0.0 L (1.5-5.0) % Baso % (Auto) 0.0 (0.0-3.0) % Gran # 16.44 H (1.4-6.5) Lymph # 0.3 L (1.2-3.4) [place] # 0.3 (0.1-0.6) Eos # 0.0 (0.0-0.7) Baso # 0.00 (0.0-2.0) K/mm3 Sodium 131 L 130 L (132-148) mmol/L Potassium 3.4 L 3.2 L (3.6-5.0) mmol/L Chloride 97 L 97 (98-107) mmol/L Carbon Dioxide 29 26 (21-33) mmol/L Anion Gap 8 L 10 (10-20) BUN 17 18 (7-21) mg/dL Creatinine 1.0 1.0 (0.5-1.4) mg/dL Est GFR ( Amer) > 60 > 60 Est GFR (Non-Af Amer) 55 55 POC Glucose (mg/dL) (65-110) mg/dL Random Glucose 241 H 216 H (70-110) mg/dL Calcium 8.6 8.3 L (8.4-10.5) mg/dL Urine Osmolality (50-645) mosm/kg Ur Random Sodium meq/L Urine Chloride (32-290) mmol/L 02/25/17 02/25/17 02/25/17 Range/Units 23:05 21:48 18:00 WBC (4.5-11.0) 10^3/ul RBC (3.5-6.1) 10^6/uL Hgb (12.0-16.0) g/dL Hct (36.0-48.0) % MCV (80.0-105.0) fl MCH (25.0-35.0) pg MCHC (31.0-37.0) g/dl RDW (11.5-14.5) % Plt Count (120.0-450.0) 10^3/uL MPV (7.0-11.0) fl Gran % (50.0-68.0) % Lymph % (Auto) (22.0-35.0) % [place] % (Auto) (1.0-6.0) % Eos % (Auto) (1.5-5.0) % Baso % (Auto) (0.0-3.0) % Gran # (1.4-6.5) Lymph # (1.2-3.4) [place] # (0.1-0.6) Eos # (0.0-0.7) Baso # (0.0-2.0) K/mm3 Sodium 132 (132-148) mmol/L Potassium 3.4 L (3.6-5.0) mmol/L Chloride 97 L (98-107) mmol/L Carbon Dioxide 27 (21-33) mmol/L Anion Gap 11 (10-20) BUN 18 (7-21) mg/dL Creatinine 1.0 (0.5-1.4) mg/dL Est GFR ( Amer) > 60 Est GFR (Non-Af Amer) 55 POC Glucose (mg/dL) 224 H (65-110) mg/dL Random Glucose 233 H (70-110) mg/dL Calcium 8.8 (8.4-10.5) mg/dL Urine Osmolality 506 (50-645) mosm/kg Ur Random Sodium 50 meq/L Urine Chloride (32-290) mmol/L 02/25/17 02/24/17 Range/Units 16:11 04:30 WBC (4.5-11.0) 10^3/ul RBC (3.5-6.1) 10^6/uL Hgb (12.0-16.0) g/dL Hct (36.0-48.0) % MCV (80.0-105.0) fl MCH (25.0-35.0) pg MCHC (31.0-37.0) g/dl RDW (11.5-14.5) % Plt Count (120.0-450.0) 10^3/uL MPV (7.0-11.0) fl Gran % (50.0-68.0) % Lymph % (Auto) (22.0-35.0) % [place] % (Auto) (1.0-6.0) % Eos % (Auto) (1.5-5.0) % Baso % (Auto) (0.0-3.0) % Gran # (1.4-6.5) Lymph # (1.2-3.4) [place] # (0.1-0.6) Eos # (0.0-0.7) Baso # (0.0-2.0) K/mm3 Sodium (132-148) mmol/L Potassium (3.6-5.0) mmol/L Chloride (98-107) mmol/L Carbon Dioxide (21-33) mmol/L Anion Gap (10-20) BUN (7-21) mg/dL Creatinine (0.5-1.4) mg/dL Est GFR ( Amer) Est GFR (Non-Af Amer) POC Glucose (mg/dL) 303 H (65-110) mg/dL Random Glucose (70-110) mg/dL Calcium (8.4-10.5) mg/dL Urine Osmolality (50-645) mosm/kg Ur Random Sodium meq/L Urine Chloride 48 (32-290) mmol/L Laboratory Results - last 24 hr 02/24/17 02/25/17 02/25/17 04:30 16:11 18:00 WBC RBC Hgb Hct MCV MCH MCHC RDW Plt Count MPV Gran % Lymph % (Auto) [place] % (Auto) Eos % (Auto) Baso % (Auto) Gran # Lymph # [place] # Eos # Baso # Sodium 132 Potassium 3.4 L Chloride 97 L Carbon Dioxide 27 Anion Gap 11 BUN 18 Creatinine 1.0 Est GFR ( Amer) > 60 Est GFR (Non-Af Amer) 55 POC Glucose (mg/dL) 303 H Random Glucose 233 H Calcium 8.8 Urine Osmolality Ur Random Sodium Urine Chloride 48 02/25/17 02/25/17 02/26/17 21:48 23:05 00:20 WBC RBC Hgb Hct MCV MCH MCHC RDW Plt Count MPV Gran % Lymph % (Auto) [place] % (Auto) Eos % (Auto) Baso % (Auto) Gran # Lymph # [place] # Eos # Baso # Sodium 130 L Potassium 3.2 L Chloride 97 Carbon Dioxide 26 Anion Gap 10 BUN 18 Creatinine 1.0 Est GFR ( Amer) > 60 Est GFR (Non-Af Amer) 55 POC Glucose (mg/dL) 224 H Random Glucose 216 H Calcium 8.3 L Urine Osmolality 506 Ur Random Sodium 50 Urine Chloride 02/26/17 02/26/17 02/26/17 06:25 06:25 07:56 WBC 17.1 H RBC 3.14 L Hgb 9.2 L Hct 27.0 L MCV 86.0 MCH 29.3 MCHC 34.1 RDW 13.0 Plt Count 408 MPV 7.9 Gran % 96.4 H Lymph % (Auto) 1.7 L [place] % (Auto) 1.9 Eos % (Auto) 0.0 L Baso % (Auto) 0.0 Gran # 16.44 H Lymph # 0.3 L [place] # 0.3 Eos # 0.0 Baso # 0.00 Sodium 131 L Potassium 3.4 L Chloride 97 L Carbon Dioxide 29 Anion Gap 8 L BUN 17 Creatinine 1.0 Est GFR ( Amer) > 60 Est GFR (Non-Af Amer) 55 POC Glucose (mg/dL) 266 H Random Glucose 241 H Calcium 8.6 Urine Osmolality Ur Random Sodium Urine Chloride 02/26/17 02/26/17 11:03 11:25 WBC RBC Hgb Hct MCV MCH MCHC RDW Plt Count MPV Gran % Lymph % (Auto) [place] % (Auto) Eos % (Auto) Baso % (Auto) Gran # Lymph # [place] # Eos # Baso # Sodium 131 L Potassium 3.9 Chloride 96 L Carbon Dioxide 26 Anion Gap 13 BUN 17 Creatinine 1.0 Est GFR ( Amer) > 60 Est GFR (Non-Af Amer) 55 POC Glucose (mg/dL) 257 H Random Glucose 224 H Calcium 8.9 Urine Osmolality Ur Random Sodium Urine Chloride Fingerstick Blood Sugar Results: 257 Review of Systems - EENT Eyes: UNREMARKABLE Ears: UNREMARKABLE Nose/Mouth/Throat: UNREMARKABLE - Breasts Breasts: UNREMARKABLE - Cardiovascular Cardiovascular: UNREMARKABLE - Respiratory Respiratory: UNREMARKABLE - Gastrointestinal Gastrointestinal: UNREMARKABLE - Genitourinary Genitourinary: UNREMARKABLE - Reproductive: Female Reproductive:Female: UNREMARKABLE Critical Care Progress Note - Ventilator Checklist PUD Prophalyxis: Yes DVT Prophylaxis: Yes Oral Care with Chlorhexidine Gluconate {CHG}: Yes - Nutrition Nutrition: Nutrition Category Date Time Status NPO Diet [DIET] Diets 02/24/17 Breakfast Ordered Assessment/Plan - Assessment and Plan (Free Text) Assessment: 72 y/o F w/ Head & Neck Ca admitted post emergent Trach placement in the setting of critical airway Currently doing well on TC 30%. COughing and secretion are blood tinged. Pain control ONC following for any further treatment options. Feeding will be evaluated by either PEG placement or NGT dvt p SCD cc time 45 min
[2017-02-26] MEDS: Nystatin 100,000 Units/ml Oral Susp 5 ml UD PO SCH ×3 (18:37→23:10)
--- NOTE | 2017-02-26 21:24 | CP.PCM.PN ---
Subjective - Date & Time of Evaluation Date of Evaluation: 02/26/17 Time of Evaluation: 11:00 - Subjective Subjective: Patient s/p trach 2 days ago now on trach collar after tolerating CPAP well; Objective - Vital Signs/Intake and Output Vital Signs (last 24 hours): Temp Pulse Resp BP Pulse Ox 97.9 F 76 17 161/77 H 99 02/26/17 18:00 02/26/17 20:10 02/26/17 20:10 02/26/17 20:00 02/26/17 20:10 Intake and Output: 02/26/17 02/27/17 18:59 06:59 Intake Total 1200 Output Total 1600 Balance -400 - Medications Medications: Current Medications Albuterol/Ipratropium (Duoneb 3 Mg/0.5 Mg (3 Ml) Ud) 3 ml IH [id number] [facility] Last Admin: 02/26/17 20:10 Dose: 3 ml Ciprofloxacin/Dexamethasone (Ciprodex Otic) 4 drop AU BID [facility] Stop: 03/02/17 23:59 Last Admin: 02/26/17 18:45 Dose: 4 drop Heparin Sodium (Porcine) (Heparin) 5,000 units SC Q8 [facility] PRN Reason: Protocol Last Admin: 02/26/17 18:38 Dose: 5,000 units Piperacillin Sod/Tazobactam Sod (Zosyn 4.5 Gm In Ns 100ml) 4.5 gm in 100 mls @ 200 mls/hr IVPB Q6 [facility] PRN Reason: Protocol Stop: 03/03/17 18:01 Last Admin: 02/26/17 18:36 Dose: 200 mls/hr Sodium Chloride (Sodium Chloride 0.9%) 1,000 mls @ 75 mls/hr IV .[id number] [facility] Last Admin: 02/26/17 08:39 Dose: 75 mls/hr Insulin Human Regular (Humulin R Low) 0 units SC ACHS [facility] PRN Reason: Protocol Last Admin: 02/26/17 18:38 Dose: Not Given Methylprednisolone (Solu-Medrol) 20 mg IVP Q8H [facility] Last Admin: 02/26/17 18:38 Dose: 20 mg Metoprolol Tartrate (Lopressor) 5 mg IVP Q6H PRN PRN Reason: Systolic Blood Pressure Morphine Sulfate (Morphine) 4 mg IVP Q4H PRN PRN Reason: Pain, moderate (4-7) Last Admin: 02/24/17 03:40 Dose: 4 mg Nystatin (Nystatin Oral Susp) 5 ml PO QID [facility] Last Admin: 02/26/17 18:38 Dose: 5 ml Pantoprazole Sodium (Protonix Inj) 40 mg IVP DAILY [facility] Last Admin: 02/26/17 10:38 Dose: 40 mg - Labs Labs: 02/26/17 06:25 02/26/17 11:25 - Constitutional Appears: Non-toxic, No Acute Distress - Eye Exam Eye Exam: Normal appearance. absent: Scleral icterus - ENT Exam ENT Exam: Mucous Membranes Moist - Respiratory Exam Respiratory Exam: Clear to Ausculation Bilateral. absent: Respiratory Distress - Cardiovascular Exam Cardiovascular Exam: RRR, +S1, +S2 - GI/Abdominal Exam GI & Abdominal Exam: Soft. absent: Distended - Extremities Exam Additional comments: minimal leg edema; - Neurological Exam Neurological Exam: Alert, Awake - Psychiatric Exam Psychiatric exam: Normal Affect, Normal Mood - Skin Skin Exam: Normal Color, Warm. absent: Cyanosis Assessment and Plan (1) Hyponatremia Assessment & Plan: Initially due to volume depletion; over-corrected, now stable; on NS at 75 cc/ hr for maintenance; -checking urine osm and Na today; appears euvolemic on exam; if urine osm elevated and serum sodium dropping on NS, this would be consistent with SIADH; -continue NS and check bmp in am Status: Acute (2) HTN (hypertension) Assessment & Plan: BP elevated; on prn metoprolol IV; agree with avoiding aggressive BP control unless SBP > 160 consistently; Status: Acute
[2017-02-27] MEDS: Albuterol-Ipratrop 3 mg / 0.5 (3 ml) UD IH SCH ×4 (02:35→20:30)
[2017-02-27] MEDS: MethylPREDNISolone 40 mg Vial IVP SCH ×3 (02:46→17:33)
[2017-02-27] MEDS: Sodium Chloride 0.9% 1,000 ML IV SCH ×2 (02:48→15:04)
[2017-02-27] MEDS: Piperacill/Tazo 4.5gm in NS 4.5 GM/100 ML BAG IVPB SCH ×4 (05:25→23:13)
[2017-02-27 06:17] LABS: GRAN # 12.84 (1.4-6.5); HEMATOCRIT 31.8 % (36.0-48.0); LYMPH # 0.2 (1.2-3.4); LYMPH % 1.3 % (22.0-35.0); MEAN CELL VOLUME 85.7 fl (80.0-105.0); MEAN CORPUSCULAR HEMOGLOBIN 29.6 pg (25.0-35.0); MEAN CORPUSCULAR HGB CONC 34.6 g/dl (31.0-37.0); MEAN PLATELET VOLUME 7.9 fl (7.0-11.0); MONO # 0.2 (0.1-0.6); MONO % 1.7 % (1.0-6.0); PLATELET COUNT 462 10^3/uL (120.0-450.0); RED CELL DISTRIBUTION WIDTH 12.9 % (11.5-14.5); WHITE BLOOD COUNT 13.2 10^3/ul (4.5-11.0)
[2017-02-27 07:07] LABS: ALB/GLOB RATIO 1.2 (1.1-1.8); ALKALINE PHOSPHATASE 86 U/L (38-126); ALT/SGPT 41 U/L (7-56); AST/SGOT 61 U/L (14-36); BILIRUBIN,TOTAL 0.3 mg/dL (0.2-1.3); BLOOD UREA NITROGEN 15 mg/dL (7-21); CARBON DIOXIDE 31 mmol/L (21-33); CHLORIDE 95 mmol/L (98-107); GFR AFRICAN-AMERICAN > 60; GLUCOSE,RANDOM 291 mg/dL (70-110); MAGNESIUM 2.2 mg/dL (1.7-2.2); PHOSPHOROUS 2.7 mg/dL (2.5-4.5); SODIUM 136 mmol/L (132-148); TOTAL PROTEIN 6.5 g/dL (5.8-8.3)
[2017-02-27] MEDS: Insulin Reg-LOW-Coverage SC SCH ×4 (07:40→21:54)
[2017-02-27] MEDS ORDERED: Bupivacaine 0.5% Inj(30mL) ONE (07:40)
[2017-02-27] MEDS ORDERED: Midazolam 2 MG/2 ML VIAL ONE (07:41)
[2017-02-27] MEDS ORDERED: Sevoflurane - Inhalation Anesthetic Liq (250 ml) ONE (07:41)
[2017-02-27] MEDS ORDERED: Propofol 10 mg/ml Inj (20 ML) ONE (08:11)
[2017-02-27] MEDS ORDERED: Rocuronium 10 mg/ml (5 ml) ONE (08:11)
--- NOTE | 2017-02-27 08:13 | PN ---
EAR, NOSE AND THROAT PROGRESS NOTE DATE: 02/26/2017 SUBJECTIVE: The patient was seen and examined. She is postop day 2 from tracheotomy. Seen with the daughter at the bedside. Reports no complaints. She has been taken off the ventilator this morning and is now doing well on trach collar. The patient is still having some difficulty hearing. Therefore, her ears were evaluated and cleaned at the bedside. Denies any other complaints at this time. OBJECTIVE: GENERAL: She is awake and alert, oriented x3, no acute distress. VITAL SIGNS: Temperature is 98.4, pulse is 65, O2 sat was 100% on trach collar, blood pressure 174/72, respirations 16. HEENT: Head is atraumatic and normocephalic. Face, there is slight swelling to bilateral parotid glands with some facial edema. Ears, right ear is unremarkable. Canal dry. Tympanic membrane intact. No signs of effusion. Left ear, canal has some soft wax, which was suctioned at the bedside. Tympanic membrane appears intact, but is very erythematous and landmarks are difficult to visualize. Canal is also erythematous. Nose: This time bilaterally no discharge, no epistaxis. Oral cavity and oropharynx: Lips are unremarkable. Tongue is mobile and midline. Mucosa dry. NECK: #6 DCT tracheostomy sutures in place and secured with sutures. Suction catheter easily passed and suctioned clear sections. Respirations are unlabored. LABORATORY DATA: She has a white blood cell count of 17.1, hemoglobin 9.2, hematocrit 27. Sodium 131, potassium 3.9, bicarb 96, creatinine 1, glucose 224. ASSESSMENT: This is a 72-year-old female, past medical history includes nasopharyngeal carcinoma status post radiation therapy and now postop day 2 status post tracheostomy for hypercarbic respiratory failure. The patient also has a left otitis externa, possibly otitis media with intact tympanic membrane. PLAN: We will continue routine tracheostomy care per respiratory therapist. The tracheostomy can be changed in about 7-10 days postop. At that time, sutures will be removed. In terms of the left ear, we will continue Ciprodex drops to the ear for a total of 7 days. We will also have the patient on some antibiotics for coverage of possible otitis media. She is currently on Zosyn as recommended by ID. The patient may benefit from a laryngotomy tube at some point. This was discussed with the daughter at the bedside and she is willing to follow up in the office for this. 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 Again forward, she can followup in the office for an audiogram and audiology evaluation. The remainder of the management as per primary team. Osiel Silva DO
[2017-02-27] MEDS ORDERED: Esmolol 100 mg/10ml Inj IV ONE (08:25)
[2017-02-27 08:40] LABS: NEUTROPHIL 96 % (50.0-70.0)
[2017-02-27 08:41] LABS: BAND 1 % (0-2)
[2017-02-27 08:42] LABS: ANISOCYTOSIS SLIGHT; HYPOCHROMIA SLIGHT; PLATELET ESTIMATE HIGH (NORMAL)
[2017-02-27 08:43] LABS: TOXIC GRANULATION SLIGHT
[2017-02-27] MEDS ORDERED: Neostigmine Methylsulfate 3mg/3ml Syringe IV ONE (08:53)
[2017-02-27] MEDS ORDERED: Desflurane Inhalation Anesthetic Liq (240 ml) ONE (09:01)
[2017-02-27] MEDS ORDERED: HYDROmorphone 0.5 mg/0.5 ml ISec IVP PRN (09:05)
[2017-02-27] MEDS ORDERED: Lactated Ringer's 1,000 ML IV SCH (09:05)
--- NOTE | 2017-02-27 09:27 | CP.PCM.PN ---
Subjective - Date & Time of Evaluation Date of Evaluation: 02/26/17 Time of Evaluation: 12:10 - Subjective Subjective: Appears more comfortable Daughter at bedside reports she is better today Objective - Vital Signs/Intake and Output Vital Signs (last 24 hours): Temp Pulse Resp BP Pulse Ox 97.9 F 88 14 158/82 H 98 02/26/17 18:00 02/27/17 05:53 02/27/17 05:50 02/27/17 04:00 02/27/17 05:50 Intake and Output: 02/27/17 02/27/17 06:59 18:59 Intake Total 2150 Output Total 2600 Balance -450 - Medications Medications: Current Medications Albuterol/Ipratropium (Duoneb 3 Mg/0.5 Mg (3 Ml) Ud) 3 ml IH [id number] [facility] Last Admin: 02/27/17 07:17 Dose: 3 ml Ciprofloxacin/Dexamethasone (Ciprodex Otic) 4 drop AU BID [facility] Stop: 03/02/17 23:59 Last Admin: 02/26/17 18:45 Dose: 4 drop Heparin Sodium (Porcine) (Heparin) 5,000 units SC Q8 [facility] PRN Reason: Protocol Last Admin: 02/27/17 05:25 Dose: 5,000 units Hydromorphone HCl (Dilaudid) 0.5 mg IVP Q15M PRN PRN Reason: Pain, moderate (4-7) Stop: 02/27/17 11:06 Piperacillin Sod/Tazobactam Sod (Zosyn 4.5 Gm In Ns 100ml) 4.5 gm in 100 mls @ 200 mls/hr IVPB Q6 [facility] PRN Reason: Protocol Stop: 03/03/17 18:01 Last Admin: 02/27/17 05:25 Dose: 200 mls/hr Sodium Chloride (Sodium Chloride 0.9%) 1,000 mls @ 75 mls/hr IV .[id number] [facility] Last Admin: 02/27/17 02:48 Dose: 75 mls/hr Potassium Chloride (Potassium Chloride 10 Meq/100 Ml) 10 meq in 100 mls @ 100 mls/hr IVPB Q2H [facility] Stop: 02/27/17 11:44 Lactated Ringer's (Lactated Ringer's) 1,000 mls @ 75 mls/hr IV .[id number] [facility] Stop: 02/27/17 11:06 Insulin Human Regular (Humulin R Low) 0 units SC ACHS [facility] PRN Reason: Protocol Last Admin: 02/26/17 23:08 Dose: Not Given Methylprednisolone (Solu-Medrol) 20 mg IVP Q8H [facility] Last Admin: 02/27/17 02:46 Dose: 20 mg Metoprolol Tartrate (Lopressor) 5 mg IVP Q6H PRN PRN Reason: Systolic Blood Pressure Morphine Sulfate (Morphine) 4 mg IVP Q4H PRN PRN Reason: Pain, moderate (4-7) Last Admin: 02/24/17 03:40 Dose: 4 mg Nystatin (Nystatin Oral Susp) 5 ml PO QID [facility] Last Admin: 02/26/17 23:10 Dose: 5 ml Ondansetron HCl (Zofran Inj) 4 mg IVP ONCE PRN PRN Reason: Nausea/Vomiting Pantoprazole Sodium (Protonix Inj) 40 mg IVP DAILY [facility] Last Admin: 02/26/17 10:38 Dose: 40 mg - Labs Labs: 02/27/17 05:10 02/27/17 05:10 - Eye Exam Eye Exam: Normal appearance - ENT Exam ENT Exam: Mucous Membranes Dry - Respiratory Exam Respiratory Exam: NORMAL BREATHING PATTERN - Cardiovascular Exam Cardiovascular Exam: +S1, +S2 - GI/Abdominal Exam GI & Abdominal Exam: Normal Bowel Sounds - Neurological Exam Neurological Exam: Oriented x3 Assessment and Plan (1) Anemia Assessment & Plan: chronic disease, prior chemotherapy improving Status: Acute (2) Leukocytosis Assessment & Plan: on antibiotics Status: Acute (3) Nasopharyngeal carcinoma Assessment & Plan: on salvage therapy outpatient treatment Status: Acute
[2017-02-27] MEDS: Nystatin 100,000 Units/ml Oral Susp 5 ml UD PO SCH ×4 (09:30→21:53)
[2017-02-27] MEDS: Ciprofloxacin/Dexamethasone OTIC SUSP AU SCH ×2 (09:30→17:33)
--- NOTE | 2017-02-27 09:47 | PCM.SURG1 ---
Surgeon's Initial Post Op Note - Surgeon's Notes Surgeon: Bill Slide Developer: PGY4 Type of Anesthesia: General Tracheostomy Pre-Operative Diagnosis: Nasopharyngeal Carcinoma Operative Findings: see op note Post-Operative Diagnosis: Nasopharyngeal Carcinoma Operation Performed: Open gastrostomy Specimen/Specimens Removed: N/A Estimated Blood Loss: EBL {In ML}: 5 Blood Products Given: N/A Drains Used: No Drains Post-Op Condition: Good Date of Surgery/Procedure: 02/27/17 Time of Surgery/Procedure: 08:00
[2017-02-27] MEDS ORDERED: HYDROmorphone 0.5 mg/0.5 ml ISec ONE ×2 (09:50→10:02)
[2017-02-27] MEDS ORDERED: HYDROmorphone 0.5 mg/0.5 ml ISec IVP ONE (10:05)
--- NOTE | 2017-02-27 12:29 | OP ---
PROCEDURE DATE: 02/27/2017 PREOPERATIVE DIAGNOSES: Nasopharyngeal cancer, oral stricture, malnutrition, and inability to swallow. POSTOPERATIVE DIAGNOSES: Nasopharyngeal cancer, oral stricture, malnutrition, and inability to swallow. PROCEDURE PERFORMED: Placement of the gastrostomy tube. SURGEON: Karan Khan MD GEOTHERMAL HVAC TECHNICIAN: Dr. Lopez. TYPE OF ANESTHESIA: General endotracheal anesthesia. ANESTHESIA ADMINISTERED BY: Tori Rios MD ESTIMATED BLOOD LOSS: Minimal. SPECIMEN: None. INDICATION FOR SURGERY: The patient is a 72-year-old female with history of nasopharyngeal cancer with recurrence, status post chemotherapy therapy with strictures in the nasopharyngeal area, unable to have endoscopy done for the PEG placement and therefore decision was made to proceed with the gastrostomy tube. The patient is unable to swallow. DESCRIPTION OF PROCEDURE: First standard time-out procedure took place and everybody in the room agreed as to the patient's identity, diagnoses, and procedure to be performed. The patient was given general anesthesia via tracheostomy tube placed earlier in the week. Next, the patient was prepped and draped in the usual sterile fashion. Using lidocaine with some Marcaine the incision in the mid epigastric area was infiltrated and an incision was made using #15-blade. It was carried through the subcutaneous fat down to the fascia and fascia was opened. The stomach directly lying underneath was brought up to 2 [place] clamps, 2 pursestring 3-0 silk stitches were placed, and a gastrotomy was made using the electrocautery. Next, the 24-Hebrew gastrostomy tube was placed to the left of the midline through the lateral aspect of the rectus muscle and brought into the abdominal cavity. Once it was there, the tip of it was placed into the stomach through the earlier created gastrotomy and the pursestrings were ligated around it. The balloon was inflated and then left pressed against wall and appeared to be holding well. Then stomach wall now sutured around the exit site of the G-tube to the underlying peritoneum in order to seal it completely using 3-0 silk stitches. Once this was completed, the gastric tube was flushed with saline and then there was good return. The abdominal cavity was closed using #1 PDS in a running fashion. The subcutaneous tissues were closed using 3-0 Vicryl and skin was closed using 4-0 Monocryl. A sterile Dermabond dressing was applied. The gastrotomy tube was then secured to the skin using 3-0 nylon stitches. The patient tolerated the procedure well and there were no complications. The patient was awakened and transferred to recovery room for further observation. Karan Khan MD
--- NOTE | 2017-02-27 14:31 | CP.PCM.PN ---
<[place] - Last Filed: 02/27/17 16:32> Subjective - Date & Time of Evaluation Date of Evaluation: 02/27/17 Time of Evaluation: 07:29 - Subjective Subjective: Patient seen and examined at bedside. Patient is s/p trach placement day 3. Patient is scheduled to get a picc line placed today and move to the Telemetry floor pending available room. The patient reports feeling better today. The remainder of the ROS is unobtainable due to her hearing. Objective - Vital Signs/Intake and Output Vital Signs (last 24 hours): Temp Pulse Resp BP Pulse Ox 97.9 F 80 14 179/78 H 96 02/27/17 10:36 02/27/17 12:00 02/27/17 10:36 02/27/17 10:36 02/27/17 10:36 Intake and Output: 02/27/17 02/27/17 06:59 18:59 Intake Total 2150 Output Total 2600 Balance -450 - Medications Medications: Current Medications Albuterol/Ipratropium (Duoneb 3 Mg/0.5 Mg (3 Ml) Ud) 3 ml IH [id number] [facility] Last Admin: 02/27/17 13:28 Dose: 3 ml Ciprofloxacin/Dexamethasone (Ciprodex Otic) 4 drop AU BID [facility] Stop: 03/02/17 23:59 Last Admin: 02/26/17 18:45 Dose: 4 drop Heparin Sodium (Porcine) (Heparin) 5,000 units SC Q8 [facility] PRN Reason: Protocol Last Admin: 02/27/17 05:25 Dose: 5,000 units Piperacillin Sod/Tazobactam Sod (Zosyn 4.5 Gm In Ns 100ml) 4.5 gm in 100 mls @ 200 mls/hr IVPB Q6 [facility] PRN Reason: Protocol Stop: 03/03/17 18:01 Last Admin: 02/27/17 05:25 Dose: 200 mls/hr Sodium Chloride (Sodium Chloride 0.9%) 1,000 mls @ 75 mls/hr IV .[id number] [facility] Last Admin: 02/27/17 02:48 Dose: 75 mls/hr Insulin Human Regular (Humulin R Low) 0 units SC ACHS [facility] PRN Reason: Protocol Last Admin: 02/27/17 12:20 Dose: 3 units Methylprednisolone (Solu-Medrol) 20 mg IVP Q8H [facility] Last Admin: 02/27/17 02:46 Dose: 20 mg Metoprolol Tartrate (Lopressor) 5 mg IVP Q6H PRN PRN Reason: Systolic Blood Pressure Morphine Sulfate (Morphine) 4 mg IVP Q4H PRN PRN Reason: Pain, moderate (4-7) Last Admin: 02/24/17 03:40 Dose: 4 mg Nystatin (Nystatin Oral Susp) 5 ml PO QID [facility] Last Admin: 02/26/17 23:10 Dose: 5 ml Ondansetron HCl (Zofran Inj) 4 mg IVP ONCE PRN PRN Reason: Nausea/Vomiting Pantoprazole Sodium (Protonix Inj) 40 mg IVP DAILY [facility] Last Admin: 02/26/17 10:38 Dose: 40 mg - Labs Labs: 02/27/17 05:10 02/27/17 05:10 - Head Exam Head Exam: ATRAUMATIC, NORMAL INSPECTION, NORMOCEPHALIC - Eye Exam Eye Exam: EOMI, Normal appearance, PERRL Pupil Exam: NORMAL ACCOMODATION, PERRL. absent: Irregular - ENT Exam ENT Exam: Mucous Membranes Moist - Neck Exam Neck Exam: Full ROM, Normal Inspection Additional comments: Tracc collar placed. - Respiratory Exam Respiratory Exam: Clear to Ausculation Bilateral, NORMAL BREATHING PATTERN. absent: Accessory Muscle Use, Chest Wall Tenderness, Respiratory Distress - Cardiovascular Exam Cardiovascular Exam: REGULAR RHYTHM, RRR, +S1, +S2. absent: Gallop, Rubs - GI/Abdominal Exam GI & Abdominal Exam: Soft, Normal Bowel Sounds - Extremities Exam Extremities Exam: Full ROM. absent: Tenderness - Back Exam Back Exam: NORMAL INSPECTION - Neurological Exam Neurological Exam: Alert, Awake - Psychiatric Exam Psychiatric exam: Normal Affect, Normal Mood. absent: Depressed - Skin Skin Exam: Dry, Intact Assessment and Plan - Assessment and Plan (Free Text) Assessment: 1.Patient is a 72-year-old female with a past medical history of recurrent nasopharyngeal cancer is admitted with generalized weakness. Found to have severe hyponatremia Plan: Respiratory: -Patient s/p respiratory distress likely due to Nasopharyngeal carcinoma. -Patient s/p tracheotomy Day#3 -Patient vital signs are stable and patient was alert and oriented this morning. -Patient had trach collar placed today. Consent was received from the patient. Patient expected to get PICC placed tomorrow. Expected to be transferred to Tele floor today. -Will continue to monitor airway management -Speech and Swallow Eval: Patient can swallow soft foods with no difficulty. Will continue to closely monitor. ID: Sepsis most likely d/t Otomastoiditis -Blood and ear cx are still pending. -Continue Zosyn (Day 4) -Continue IV vancomycin -ENT consult following. F/U with Recs. -Continue to monitor VS for signs. Cardiovascular -Currently 160/80. Will follow closely. Hematology/Oncology: -Patient gets treatment at [facility]. -Case discussed with oncologist Dr. Flowers in detail. -Patient diagnosed in 2014 and had 30 rounds of radiation and 6 cycles of chemotherapy in 2014. Patient had recurrence of tumor in 2016. Patient recently had radiation in December(2016) and most recent chemotherapy was 3 weeks at [facility]. -Was able to confirm home medications with Patient's relative. Called Dr. Varela her primary Oncologist however was unable to reach him. Unable to reach him again today. Will attempt again tomorrow. -Dr. Baxter aware of current clinical picture. Will f/u with recs. Nephrology: Hypokalemia -K 3.0 Will replete. Will monitor with serial CMP's. GI ppx -continue protonix DVT ppx -continue SCD's <Sarah Quintero - Last Filed: 02/27/17 16:54> Objective - Vital Signs/Intake and Output Vital Signs (last 24 hours): Temp Pulse Resp BP Pulse Ox 97.9 F 80 14 158/73 H 96 02/27/17 10:36 02/27/17 16:45 02/27/17 10:36 02/27/17 16:45 02/27/17 10:36 Intake and Output: 02/27/17 02/27/17 06:59 18:59 Intake Total 2150 Output Total 2600 Balance -450 - Medications Medications: Current Medications Albuterol/Ipratropium (Duoneb 3 Mg/0.5 Mg (3 Ml) Ud) 3 ml IH [id number] [facility] Last Admin: 02/27/17 13:28 Dose: 3 ml Ciprofloxacin/Dexamethasone (Ciprodex Otic) 4 drop AU BID [facility] Stop: 03/02/17 23:59 Last Admin: 02/27/17 09:30 Dose: Not Given Heparin Sodium (Porcine) (Heparin) 5,000 units SC Q8 [facility] PRN Reason: Protocol Last Admin: 02/27/17 16:47 Dose: 5,000 units Piperacillin Sod/Tazobactam Sod (Zosyn 4.5 Gm In Ns 100ml) 4.5 gm in 100 mls @ 200 mls/hr IVPB Q6 [facility] PRN Reason: Protocol Stop: 03/03/17 18:01 Last Admin: 02/27/17 15:03 Dose: Not Given Sodium Chloride (Sodium Chloride 0.9%) 1,000 mls @ 75 mls/hr IV .[id number] [facility] Last Admin: 02/27/17 15:04 Dose: Not Given Insulin Human Regular (Humulin R Low) 0 units SC ACHS [facility] PRN Reason: Protocol Last Admin: 02/27/17 12:20 Dose: 3 units Methylprednisolone (Solu-Medrol) 20 mg IVP Q8H [facility] Last Admin: 02/27/17 15:04 Dose: Not Given Metoprolol Tartrate (Lopressor) 5 mg IVP Q6H PRN PRN Reason: Systolic Blood Pressure Last Admin: 02/27/17 16:45 Dose: 5 mg Morphine Sulfate (Morphine) 4 mg IVP Q4H PRN PRN Reason: Pain, moderate (4-7) Last Admin: 02/24/17 03:40 Dose: 4 mg Nystatin (Nystatin Oral Susp) 5 ml PO QID [facility] Last Admin: 02/27/17 16:45 Dose: 5 ml Ondansetron HCl (Zofran Inj) 4 mg IVP ONCE PRN PRN Reason: Nausea/Vomiting Pantoprazole Sodium (Protonix Inj) 40 mg IVP DAILY [facility] Last Admin: 02/27/17 15:06 Dose: Not Given - Labs Labs: 02/27/17 05:10 02/27/17 05:10 Attending/Attestation - Attestation I have personally seen and examined this patient.: Yes I have fully participated in the care of the patient.: Yes I have reviewed all pertinent clinical information, including history, physical exam and plan: Yes Notes (Text): 02/27/17 16:50 Attending note: Patient seen and examined with the resident. 1.Patient is a 72-year-old female with a past medical history of recurrent nasopharyngeal cancer is admitted with generalized weakness. Found to have hyponatremia. Hyponatremia resolved. 2.sepsis/sinusitis on Otomastoiditis; continue Zosyn. Continue Ciprodex drops. ID evaluation appreciated. 3. Nasopharyngeal carcinoma; seen by ENT. Emergency tracheostomy done. Currently on trach collar. Needs outpatient audiogram and close follow-up with ENT. 4. History of nasopharyngeal carcinoma; patient gets treatment at [facility]. Case discussed with oncologist Dr. Baxter in detail. Family is willing to switch care to oncologist Dr. Baxter. 5. Surgery evaluation appreciated. s/p Peg tube placement today. 6. Diabetes ; continue insulin. 7.GI prophylaxis with Protonix. 8. poor IV access; PICC line ordered. 9. Hypertension: continue IV metoprolol. The diagnosis and treatment option discussed with patient's daughter in detail. [employer] redevelopment site manager evaluation requested for discharge planning.
[2017-02-27] MEDS ORDERED: Lidocaine 2% Inj (20ml) ONE (15:26)
--- NOTE | 2017-02-27 15:50 | CP.PCM.PN ---
Subjective - Date & Time of Evaluation Date of Evaluation: 02/27/17 Time of Evaluation: 15:30 - Subjective Subjective: Comfortable in bed, not in distress, for PICC line placement. Still with left ear swelling, no pain currently, no ear discharge. Objective - Vital Signs/Intake and Output Vital Signs (last 24 hours): Temp Pulse Resp BP Pulse Ox 97.9 F 81 14 199/82 H 98 02/27/17 09:48 02/27/17 09:48 02/27/17 09:48 02/27/17 09:48 02/27/17 09:48 Intake and Output: 02/27/17 02/27/17 06:59 18:59 Intake Total 2150 Output Total 2600 Balance -450 - Medications Medications: Current Medications Albuterol/Ipratropium (Duoneb 3 Mg/0.5 Mg (3 Ml) Ud) 3 ml IH [id number] Last Admin: 02/27/17 07:17 Dose: 3 ml Ciprofloxacin/Dexamethasone (Ciprodex Otic) 4 drop AU BID [facility] Stop: 03/02/17 23:59 Last Admin: 02/26/17 18:45 Dose: 4 drop Heparin Sodium (Porcine) (Heparin) 5,000 units SC Q8 [facility] PRN Reason: Protocol Last Admin: 02/27/17 05:25 Dose: 5,000 units Hydromorphone HCl (Dilaudid) 0.5 mg IVP Q15M PRN PRN Reason: Pain, moderate (4-7) Stop: 02/27/17 11:06 Last Admin: 02/27/17 09:50 Dose: 0.5 mg Piperacillin Sod/Tazobactam Sod (Zosyn 4.5 Gm In Ns 100ml) 4.5 gm in 100 mls @ 200 mls/hr IVPB Q6 [facility] PRN Reason: Protocol Stop: 03/03/17 18:01 Last Admin: 02/27/17 05:25 Dose: 200 mls/hr Sodium Chloride (Sodium Chloride 0.9%) 1,000 mls @ 75 mls/hr IV .[id number] [facility] Last Admin: 02/27/17 02:48 Dose: 75 mls/hr Potassium Chloride (Potassium Chloride 10 Meq/100 Ml) 10 meq in 100 mls @ 100 mls/hr IVPB Q2H [facility] Stop: 02/27/17 11:44 Lactated Ringer's (Lactated Ringer's) 1,000 mls @ 75 mls/hr IV .[id number] [facility] Stop: 02/27/17 11:06 Insulin Human Regular (Humulin R Low) 0 units SC ACHS [facility] PRN Reason: Protocol Last Admin: 02/26/17 23:08 Dose: Not Given Methylprednisolone (Solu-Medrol) 20 mg IVP Q8H [facility] Last Admin: 02/27/17 02:46 Dose: 20 mg Metoprolol Tartrate (Lopressor) 5 mg IVP Q6H PRN PRN Reason: Systolic Blood Pressure Morphine Sulfate (Morphine) 4 mg IVP Q4H PRN PRN Reason: Pain, moderate (4-7) Last Admin: 02/24/17 03:40 Dose: 4 mg Nystatin (Nystatin Oral Susp) 5 ml PO QID [facility] Last Admin: 02/26/17 23:10 Dose: 5 ml Ondansetron HCl (Zofran Inj) 4 mg IVP ONCE PRN PRN Reason: Nausea/Vomiting Pantoprazole Sodium (Protonix Inj) 40 mg IVP DAILY [facility] Last Admin: 02/26/17 10:38 Dose: 40 mg - Labs Labs: 02/27/17 05:10 02/27/17 05:10 - Constitutional Appears: Non-toxic, No Acute Distress - ENT Exam Additional comments: tracheostomy tube in place; left ear still with surrounding swelling - Neck Exam Neck Exam: absent: Meningismus - Respiratory Exam Respiratory Exam: Decreased Breath Sounds - Cardiovascular Exam Cardiovascular Exam: +S1, +S2 - GI/Abdominal Exam GI & Abdominal Exam: Soft. absent: Tenderness Assessment and Plan - Assessment and Plan (Free Text) Plan: Assessment Sepsis probably due to otitis externa of the left ear, slowly improving S/P respiratory distress related to nasopharyngeal carcinoma, S/P tracheostomy tube placement POD #3 nasopharyngeal cancer on chemotherapy and was treated with radiation therapy HTN DM dyslipidemia Plan continue Zosyn day 3; blood cultures are negative; ENT also following the patient patient for PICC line placement today will continue to monitor clinically
[2017-02-27] MEDS: Metoprolol 1 mg/ml Inj IVP PRN (16:45)
--- NOTE | 2017-02-27 19:02 | VASCULAR ---
PROCEDURE: Ultrasound and fluoroscopically placed right upper extremity PICC line. HISTORY: Head and neck carcinoma. Recent tracheostomy. Hyponatremia. Needs PICC line. PHYSICIAN(S): Girma Lowry MD. TECHNIQUE: The relative risks and indications of the procedure were explained to the patient and consent obtained. The patient was placed supine on the arteriogram table and the right arm prepped and draped in the usual sterile fashion. A tourniquet was applied to the right axilla. 1% Xylocaine was used to anesthetize the skin and soft tissues at the puncture site above the elbow. The right basilic vein was punctured under direct ultrasound guidance with a micropuncture set. A 0.018 guidewire was advanced centrally and used to measure the length to the SVC/RA junction. A 5 [place]uvian single-lumen PICC line 38 cm long was advanced to the SVC/RA junction. The catheter was flushed and secured. The patient tolerated the procedure well. IMPRESSION: 1. Ultrasound and fluoroscopically placed right upper extremity PICC line. A 5 [place]uvian single-lumen PICC line 38 cm long was advanced to the SVC/RA junction.
--- NOTE | 2017-02-27 20:43 | CP.PCM.PN ---
Subjective - Date & Time of Evaluation Date of Evaluation: 02/27/17 Time of Evaluation: 11:00 - Subjective Subjective: Patient is s/p gastrostomy tube placement earlier today; not reporting any complaints; Objective - Vital Signs/Intake and Output Vital Signs (last 24 hours): Temp Pulse Resp BP Pulse Ox 98.7 F 72 15 151/67 H 100 02/27/17 16:00 02/27/17 18:09 02/27/17 18:09 02/27/17 18:00 02/27/17 18:00 Intake and Output: 02/27/17 02/28/17 18:59 06:59 Intake Total 450 Output Total 1400 Balance -950 - Medications Medications: Current Medications Albuterol/Ipratropium (Duoneb 3 Mg/0.5 Mg (3 Ml) Ud) 3 ml IH [id number] [facility] Last Admin: 02/27/17 20:30 Dose: 3 ml Ciprofloxacin/Dexamethasone (Ciprodex Otic) 4 drop AU BID [facility] Stop: 03/02/17 23:59 Last Admin: 02/27/17 17:33 Dose: 4 drop Heparin Sodium (Porcine) (Heparin) 5,000 units SC Q8 [facility] PRN Reason: Protocol Last Admin: 02/27/17 16:47 Dose: 5,000 units Piperacillin Sod/Tazobactam Sod (Zosyn 4.5 Gm In Ns 100ml) 4.5 gm in 100 mls @ 200 mls/hr IVPB Q6 [facility] PRN Reason: Protocol Stop: 03/03/17 18:01 Last Admin: 02/27/17 17:34 Dose: 200 mls/hr Sodium Chloride (Sodium Chloride 0.9%) 1,000 mls @ 75 mls/hr IV .[id number] [facility] Last Admin: 02/27/17 15:04 Dose: Not Given Dextrose (Dextrose 5% In Water 1000 Ml) 1,000 mls @ 30 mls/hr IV .Q24H ONE Stop: 02/28/17 19:29 Insulin Human Regular (Humulin R Low) 0 units SC ACHS [facility] PRN Reason: Protocol Last Admin: 02/27/17 17:23 Dose: 1 units Methylprednisolone (Solu-Medrol) 20 mg IVP Q8H [facility] Last Admin: 02/27/17 17:33 Dose: 20 mg Metoprolol Tartrate (Lopressor) 5 mg IVP Q6H PRN PRN Reason: Systolic Blood Pressure Last Admin: 02/27/17 16:45 Dose: 5 mg Morphine Sulfate (Morphine) 4 mg IVP Q4H PRN PRN Reason: Pain, moderate (4-7) Last Admin: 02/24/17 03:40 Dose: 4 mg Nystatin (Nystatin Oral Susp) 5 ml PO QID [facility] Last Admin: 02/27/17 17:28 Dose: Not Given Ondansetron HCl (Zofran Inj) 4 mg IVP ONCE PRN PRN Reason: Nausea/Vomiting Pantoprazole Sodium (Protonix Inj) 40 mg IVP DAILY [facility] Last Admin: 02/27/17 15:06 Dose: Not Given - Labs Labs: 02/27/17 05:10 02/27/17 05:10 - Constitutional Appears: Non-toxic, No Acute Distress - Eye Exam Eye Exam: Normal appearance - ENT Exam ENT Exam: Mucous Membranes Moist - Respiratory Exam Respiratory Exam: Clear to Ausculation Bilateral. absent: Respiratory Distress - Cardiovascular Exam Cardiovascular Exam: RRR, +S1, +S2 - GI/Abdominal Exam GI & Abdominal Exam: Soft. absent: Distended - Extremities Exam Extremities Exam: Normal Capillary Refill - Neurological Exam Neurological Exam: Alert, Awake - Psychiatric Exam Psychiatric exam: Normal Affect, Normal Mood - Skin Skin Exam: Warm. absent: Cyanosis Assessment and Plan (1) Hyponatremia Assessment & Plan: Resolved; agree with NS for maintenance until feeds started; Status: Acute (2) HTN (hypertension) Status: Chronic - Assessment and Plan (Free Text) Assessment: Thank you for the consult; we will sign off; please feel free to call us back;
[2017-02-28] MEDS: Metoprolol 1 mg/ml Inj IVP PRN (00:11)
[2017-02-28] MEDS: MethylPREDNISolone 40 mg Vial IVP SCH ×2 (01:06→11:31)
[2017-02-28] MEDS: Albuterol-Ipratrop 3 mg / 0.5 (3 ml) UD IH SCH ×4 (02:39→19:43)
[2017-02-28] MEDS: Piperacill/Tazo 4.5gm in NS 4.5 GM/100 ML BAG IVPB SCH ×3 (05:21→18:47)
[2017-02-28 06:27] LABS: GRAN # 11.91 (1.4-6.5); GRAN % 96.1 % (50.0-68.0); HEMATOCRIT 30.6 % (36.0-48.0); LYMPH # 0.2 (1.2-3.4); LYMPH % 1.8 % (22.0-35.0); MEAN CELL VOLUME 86.4 fl (80.0-105.0); MEAN CORPUSCULAR HEMOGLOBIN 29.4 pg (25.0-35.0); MEAN PLATELET VOLUME 7.6 fl (7.0-11.0); MONO # 0.3 (0.1-0.6); MONO % 2.1 % (1.0-6.0); RED CELL DISTRIBUTION WIDTH 13.1 % (11.5-14.5); WHITE BLOOD COUNT 12.4 10^3/ul (4.5-11.0)
[2017-02-28 07:01] LABS: ALB/GLOB RATIO 1.2 (1.1-1.8); ALKALINE PHOSPHATASE 76 U/L (38-126); ALT/SGPT 35 U/L (7-56); AST/SGOT 56 U/L (14-36); BILIRUBIN,TOTAL 0.6 mg/dL (0.2-1.3); BLOOD UREA NITROGEN 16 mg/dL (7-21); CALCIUM 8.7 mg/dL (8.4-10.5); CARBON DIOXIDE 30 mmol/L (21-33); CHLORIDE 96 mmol/L (95-110); GFR AFRICAN-AMERICAN > 60; MAGNESIUM 1.9 mg/dL (1.7-2.2); PHOSPHOROUS 3.1 mg/dL (2.5-4.5); SODIUM 133 mmol/L (132-148); TOTAL PROTEIN 6.3 g/dL (5.8-8.3)
[2017-02-28 07:14] LABS: GLUCOSE,RANDOM 228 mg/dL (70-110)
[2017-02-28 07:45] LABS: POTASSIUM 2.9 mmol/L (3.6-5.0)
[2017-02-28] MEDS: Insulin Reg-LOW-Coverage SC SCH ×4 (08:49→23:01)
[2017-02-28] MEDS: Sodium Chloride 0.9% 1,000 ML IV SCH (09:01)
[2017-02-28] MEDS: Nystatin 100,000 Units/ml Oral Susp 5 ml UD PO SCH ×4 (11:31→23:05)
[2017-02-28] MEDS: Ciprofloxacin/Dexamethasone OTIC SUSP AU SCH ×2 (11:31→18:45)
--- NOTE | 2017-02-28 12:17 | CP.PCM.PN ---
<Burt Guan - Last Filed: 02/28/17 12:20> Subjective - Date & Time of Evaluation Date of Evaluation: 02/28/17 Time of Evaluation: 10:12 - Subjective Subjective: This patient was seen and examined at bedside s/p Picc and G tube placement Day# 1. The patient still complaining of oral dryness. The patient does report feeling better than yesterday. The remainder of the ROS could not be obtained due to her inability to hear. Objective - Vital Signs/Intake and Output Vital Signs (last 24 hours): Temp Pulse Resp BP Pulse Ox 98.7 F 85 16 161/81 H 97 02/28/17 06:00 02/28/17 06:00 02/28/17 06:00 02/28/17 06:00 02/28/17 06:00 Intake and Output: 02/28/17 02/28/17 06:59 18:59 Intake Total 975 Output Total 2600 Balance -1625 - Medications Medications: Current Medications Albuterol/Ipratropium (Duoneb 3 Mg/0.5 Mg (3 Ml) Ud) 3 ml IH [id number] [facility] Last Admin: 02/28/17 08:33 Dose: 3 ml Ciprofloxacin/Dexamethasone (Ciprodex Otic) 4 drop AU BID [facility] Stop: 03/02/17 23:59 Last Admin: 02/28/17 11:31 Dose: 4 drop Heparin Sodium (Porcine) (Heparin) 5,000 units SC Q8 [facility] PRN Reason: Protocol Last Admin: 02/28/17 05:20 Dose: 5,000 units Piperacillin Sod/Tazobactam Sod (Zosyn 4.5 Gm In Ns 100ml) 4.5 gm in 100 mls @ 200 mls/hr IVPB Q6 [facility] PRN Reason: Protocol Stop: 03/03/17 18:01 Last Admin: 02/28/17 11:32 Dose: 200 mls/hr Dextrose (Dextrose 5% In Water 1000 Ml) 1,000 mls @ 30 mls/hr IV .Q24H ONE Stop: 02/28/17 19:29 Last Admin: 02/27/17 21:44 Dose: 30 mls/hr Insulin Human Regular (Humulin R Low) 0 units SC ACHS [facility] PRN Reason: Protocol Last Admin: 02/28/17 08:49 Dose: 2 units Methylprednisolone (Solu-Medrol) 20 mg IVP Q8H [facility] Last Admin: 02/28/17 11:31 Dose: 20 mg Metoprolol Tartrate (Lopressor) 5 mg IVP Q6H PRN PRN Reason: Systolic Blood Pressure Last Admin: 02/28/17 00:11 Dose: 5 mg Morphine Sulfate (Morphine) 4 mg IVP Q4H PRN PRN Reason: Pain, moderate (4-7) Last Admin: 02/24/17 03:40 Dose: 4 mg Nystatin (Nystatin Oral Susp) 5 ml PO QID [facility] Last Admin: 02/28/17 11:31 Dose: 5 ml Pantoprazole Sodium (Protonix Inj) 40 mg IVP DAILY [facility] Last Admin: 02/28/17 11:31 Dose: 40 mg - Labs Labs: 02/28/17 06:00 02/28/17 06:00 - Head Exam Head Exam: NORMAL INSPECTION, NORMOCEPHALIC - Eye Exam Eye Exam: EOMI, Normal appearance, PERRL. absent: Nystagmus Pupil Exam: NORMAL ACCOMODATION - ENT Exam ENT Exam: Mucous Membranes Dry - Neck Exam Additional comments: Trach placed. - Respiratory Exam Respiratory Exam: Clear to Ausculation Bilateral, Respiratory Distress, NORMAL BREATHING PATTERN. absent: Accessory Muscle Use, Chest Wall Tenderness - Cardiovascular Exam Cardiovascular Exam: REGULAR RHYTHM, RRR, +S1, +S2. absent: Rubs - GI/Abdominal Exam GI & Abdominal Exam: Soft, Normal Bowel Sounds. absent: Rigid, Tenderness - Extremities Exam Extremities Exam: Full ROM - Neurological Exam Neurological Exam: Alert, Awake - Psychiatric Exam Psychiatric exam: Normal Affect, Normal Mood - Skin Skin Exam: Dry, Intact Assessment and Plan - Assessment and Plan (Free Text) Assessment: 1.Patient is a 72-year-old female with a past medical history of recurrent nasopharyngeal cancer is admitted with generalized weakness. Found to have severe hyponatremia Plan: Respiratory: -Patient s/p respiratory distress likely due to Nasopharyngeal carcinoma. -Patient s/p tracheotomy Day#3 -Patient vital signs are stable and patient was alert and oriented this morning. -Patient had trach collar s/p Day#1. Consent was received from the patient. PICC placed s/p Day#1. Transferred to [facility] floor today. -Will continue to monitor airway management -Speech and Swallow Eval: Patient can swallow soft foods with no difficulty however currently Npo. Will use PEG tube going forward for nutrition. Nutrition Consult ordered and pending. ID: Sepsis most likely d/t Otomastoiditis -Blood and ear cx are still pending. -Continue Zosyn (Day 5) -Continue IV vancomycin -ENT consult following. F/U with Recs. -Continue to monitor VS for signs. Cardiovascular -Currently 160/80. Will follow closely. Hematology/Oncology: -Patient gets treatment at [facility]. -Case discussed with oncologist Dr. Flowers in detail. -Patient diagnosed in 2014 and had 30 rounds of radiation and 6 cycles of chemotherapy in 2014. Patient had recurrence of tumor in 2016. Patient recently had radiation in December(2016) and most recent chemotherapy was 3 weeks at [facility]. -Was able to confirm home medications with Patient's relative. Called Dr. Varela her primary Oncologist however was unable to reach him. Unable to reach him again today. Will attempt again tomorrow. -Dr. Baxter aware of current clinical picture. Will f/u with recs. Nephrology: Hypokalemia -K 2.9. Will replete. Will f/u with CMP today after KCL. Will monitor with serial CMP's. GI ppx -continue protonix DVT ppx -continue SCD's <Cynthia GOEL,Lynn - Last Filed: 03/01/17 18:39> Objective - Vital Signs/Intake and Output Vital Signs (last 24 hours): Temp Pulse Resp BP Pulse Ox 98.1 F 82 18 138/67 99 03/01/17 12:00 03/01/17 12:00 03/01/17 12:00 03/01/17 12:00 03/01/17 06:00 Intake and Output: 03/01/17 03/01/17 06:59 18:59 Intake Total 990 Output Total 1500 Balance -510 - Medications Medications: Current Medications Albuterol/Ipratropium (Duoneb 3 Mg/0.5 Mg (3 Ml) Ud) 3 ml IH [id number] [facility] Last Admin: 03/01/17 13:45 Dose: 3 ml Amoxicillin/Clavulanate Potassium (Augmentin 875 Mg-125 Mg Tab) 1 tab PO Q12 [facility] PRN Reason: Protocol Ciprofloxacin/Dexamethasone (Ciprodex Otic) 4 drop AU BID [facility] Stop: 03/02/17 23:59 Last Admin: 02/28/17 18:45 Dose: 4 drop Heparin Sodium (Porcine) (Heparin) 5,000 units SC Q8 [facility] PRN Reason: Protocol Last Admin: 03/01/17 05:11 Dose: 5,000 units Insulin Human Regular (Humulin R Low) 0 units SC ACHS [facility] PRN Reason: Protocol Last Admin: 03/01/17 14:42 Dose: Not Given Metoprolol Tartrate (Lopressor) 5 mg IVP Q6H PRN PRN Reason: Systolic Blood Pressure Last Admin: 02/28/17 00:11 Dose: 5 mg Morphine Sulfate (Morphine) 4 mg IVP Q4H PRN PRN Reason: Pain, moderate (4-7) Last Admin: 03/01/17 11:55 Dose: 4 mg Nystatin (Nystatin Oral Susp) 5 ml PO QID [facility] Last Admin: 03/01/17 11:39 Dose: 5 ml Pantoprazole Sodium (Protonix Inj) 40 mg IVP DAILY [facility] Last Admin: 03/01/17 11:39 Dose: 40 mg Prednisone (Prednisone Tab) 40 mg PO DAILY [facility] Last Admin: 03/01/17 11:39 Dose: 40 mg - Labs Labs: 03/01/17 06:08 03/01/17 06:08 Attending/Attestation - Attestation I have personally seen and examined this patient.: Yes I have fully participated in the care of the patient.: Yes I have reviewed all pertinent clinical information, including history, physical exam and plan: Yes Notes (Text): 03/01/17 18:35 Patient was seen and examined with medical sales associate. Agreed with resident assessment and plan. 72-year-old female with a past medical history of recurrent nasopharyngeal cancer is admitted with generalized weakness.Patient was evaluated by seen by ENT. Emergency tracheostomy done. Currently she is on trach collar.Patient is SP PEG tube placement. We will start patient on tube feeding Patient is on IV antibiotic for possible mastoiditis as per ID.Cultures are negative. Management plan was discussed in detail with patient Education was provided.
--- NOTE | 2017-02-28 12:37 | CP.PCM.PN ---
Subjective - Date & Time of Evaluation Date of Evaluation: 02/28/17 Time of Evaluation: 12:35 - Subjective Subjective: SURGERY NOTE FOR DR. GERARD 72M seen and examined at bedside. NAEON. s/p gastrostomy. Objective - Vital Signs/Intake and Output Vital Signs (last 24 hours): Temp Pulse Resp BP Pulse Ox 98.7 F 85 16 161/81 H 97 02/28/17 06:00 02/28/17 06:00 02/28/17 06:00 02/28/17 06:00 02/28/17 06:00 Intake and Output: 02/28/17 02/28/17 06:59 18:59 Intake Total 975 Output Total 2600 Balance -1625 - Medications Medications: Current Medications Albuterol/Ipratropium (Duoneb 3 Mg/0.5 Mg (3 Ml) Ud) 3 ml IH [id number] [facility] Last Admin: 02/28/17 08:33 Dose: 3 ml Ciprofloxacin/Dexamethasone (Ciprodex Otic) 4 drop AU BID [facility] Stop: 03/02/17 23:59 Last Admin: 02/28/17 11:31 Dose: 4 drop Heparin Sodium (Porcine) (Heparin) 5,000 units SC Q8 [facility] PRN Reason: Protocol Last Admin: 02/28/17 05:20 Dose: 5,000 units Piperacillin Sod/Tazobactam Sod (Zosyn 4.5 Gm In Ns 100ml) 4.5 gm in 100 mls @ 200 mls/hr IVPB Q6 [facility] PRN Reason: Protocol Stop: 03/03/17 18:01 Last Admin: 02/28/17 11:32 Dose: 200 mls/hr Dextrose (Dextrose 5% In Water 1000 Ml) 1,000 mls @ 30 mls/hr IV .Q24H ONE Stop: 02/28/17 19:29 Last Admin: 02/27/17 21:44 Dose: 30 mls/hr Insulin Human Regular (Humulin R Low) 0 units SC ACHS [facility] PRN Reason: Protocol Last Admin: 02/28/17 08:49 Dose: 2 units Methylprednisolone (Solu-Medrol) 20 mg IVP Q8H [facility] Last Admin: 02/28/17 11:31 Dose: 20 mg Metoprolol Tartrate (Lopressor) 5 mg IVP Q6H PRN PRN Reason: Systolic Blood Pressure Last Admin: 02/28/17 00:11 Dose: 5 mg Morphine Sulfate (Morphine) 4 mg IVP Q4H PRN PRN Reason: Pain, moderate (4-7) Last Admin: 02/24/17 03:40 Dose: 4 mg Nystatin (Nystatin Oral Susp) 5 ml PO QID [facility] Last Admin: 02/28/17 11:31 Dose: 5 ml Pantoprazole Sodium (Protonix Inj) 40 mg IVP DAILY [facility] Last Admin: 02/28/17 11:31 Dose: 40 mg - Labs Labs: 02/28/17 06:00 02/28/17 06:00 - Constitutional Appears: Non-toxic, No Acute Distress - Respiratory Exam Respiratory Exam: Clear to Ausculation Bilateral, NORMAL BREATHING PATTERN - Cardiovascular Exam Cardiovascular Exam: REGULAR RHYTHM, +S1, +S2 - GI/Abdominal Exam Additional comments: G -Tube in place. Incision CDI Assessment and Plan - Assessment and Plan (Free Text) Assessment: 72F s/p gastrostomy POD1 Plan: - begin tube feedings - 30cc D5 per hr - Intelligence Specialist consult for tube feedings Further recs discuss with Dr. Bill Sebastian, PGY2
--- NOTE | 2017-02-28 13:03 | PN ---
DATE: 02/28/2017 LOCATION: The patient is seen earlier today in room 265, bed 2. SUBJECTIVE: She is awake and however she feels uncomfortable and that she is weak. PHYSICAL EXAMINATION: VITAL SIGNS: Temperature is 98, blood pressure is 160/80, heart rate of 85, and respiratory rate of 16. HEENT: Unremarkable, no new changes. NECK: Supple. LUNGS: Decreased breath sounds. HEART: Normal S1 and S2. ABDOMEN: Soft. LABORATORY DATA: Reveals the patient has white count of 12,400, hemoglobin of 10, platelets of 407, and 96% granulocytosis. Chemistry reveals BUN of 16, creatinine of 0.9, and procalcitonin 0.12. Blood cultures are negative. Urine cultures are negative. The patient is on Zosyn. ASSESSMENT AND PLAN: This is a 72-year-old female with sepsis probably due to otitis externa in the left ear slowly improving, status post respiratory distress related to nasopharyngeal carcinoma, status post tracheostomy postoperative day #4, on chemotherapy and radiation, hypertension, diabetes and dyslipidemia, day #4 of Zosyn. The patient for gastrostomy tube yesterday. We will continue the Zosyn. The patient is also on Solu-Medrol started by Dr. Walker. Miguel Bethea MD
[2017-02-28] MEDS: Morphine 4 mg/ml ISec IVP PRN (16:18)
[2017-02-28] MEDS ORDERED: MethylPREDNISolone 40 mg Vial IVP SCH (18:00)
[2017-02-28 19:39] LABS: ALB/GLOB RATIO 1.2 (1.1-1.8); ALKALINE PHOSPHATASE 66 U/L (38-126); ALT/SGPT 36 U/L (7-56); AST/SGOT 46 U/L (14-36); BILIRUBIN,TOTAL 0.3 mg/dL (0.2-1.3); BLOOD UREA NITROGEN 18 mg/dL (7-21); CALCIUM 8.6 mg/dL (8.4-10.5); CARBON DIOXIDE 32 mmol/L (21-33); CHLORIDE 98 mmol/L (98-107); GFR AFRICAN-AMERICAN > 60; GLUCOSE,RANDOM 144 mg/dL (70-110); SODIUM 134 mmol/L (132-148); TOTAL PROTEIN 5.9 g/dL (5.8-8.3)
[2017-03-01] MEDS: Piperacill/Tazo 4.5gm in NS 4.5 GM/100 ML BAG IVPB SCH ×3 (00:33→11:39)
[2017-03-01] MEDS: Albuterol-Ipratrop 3 mg / 0.5 (3 ml) UD IH SCH ×5 (01:03→19:23)
--- NOTE | 2017-03-01 01:51 | CP.PCM.PN ---
Subjective - Date & Time of Evaluation Date of Evaluation: 02/27/17 Time of Evaluation: 12:00 - Subjective Subjective: Has pain around neck Objective - Vital Signs/Intake and Output Vital Signs (last 24 hours): Temp Pulse Resp BP Pulse Ox 98.7 F 96 H 16 138/73 97 02/28/17 18:00 02/28/17 18:00 02/28/17 18:00 02/28/17 18:00 02/28/17 06:00 - Medications Medications: Current Medications Albuterol/Ipratropium (Duoneb 3 Mg/0.5 Mg (3 Ml) Ud) 3 ml IH [id number] [facility] Last Admin: 03/01/17 01:03 Dose: 3 ml Ciprofloxacin/Dexamethasone (Ciprodex Otic) 4 drop AU BID [facility] Stop: 03/02/17 23:59 Last Admin: 02/28/17 18:45 Dose: 4 drop Heparin Sodium (Porcine) (Heparin) 5,000 units SC Q8 [facility] PRN Reason: Protocol Last Admin: 02/28/17 23:04 Dose: 5,000 units Piperacillin Sod/Tazobactam Sod (Zosyn 4.5 Gm In Ns 100ml) 4.5 gm in 100 mls @ 200 mls/hr IVPB Q6 [facility] PRN Reason: Protocol Stop: 03/03/17 18:01 Last Admin: 03/01/17 00:33 Dose: 200 mls/hr Insulin Human Regular (Humulin R Low) 0 units SC ACHS [facility] PRN Reason: Protocol Last Admin: 02/28/17 23:01 Dose: Not Given Methylprednisolone (Solu-Medrol) 20 mg IVP BID [facility] Last Admin: 02/28/17 18:45 Dose: 20 mg Metoprolol Tartrate (Lopressor) 5 mg IVP Q6H PRN PRN Reason: Systolic Blood Pressure Last Admin: 02/28/17 00:11 Dose: 5 mg Morphine Sulfate (Morphine) 4 mg IVP Q4H PRN PRN Reason: Pain, moderate (4-7) Last Admin: 02/28/17 16:18 Dose: 4 mg Nystatin (Nystatin Oral Susp) 5 ml PO QID [facility] Last Admin: 02/28/17 23:05 Dose: Not Given Pantoprazole Sodium (Protonix Inj) 40 mg IVP DAILY [facility] Last Admin: 02/28/17 11:31 Dose: 40 mg - Labs Labs: 02/28/17 06:00 02/28/17 18:35 - Eye Exam Eye Exam: Normal appearance - ENT Exam ENT Exam: Mucous Membranes Dry - Respiratory Exam Respiratory Exam: NORMAL BREATHING PATTERN - Cardiovascular Exam Cardiovascular Exam: +S1, +S2 - GI/Abdominal Exam GI & Abdominal Exam: Normal Bowel Sounds - Extremities Exam Extremities Exam: Normal Inspection Assessment and Plan (1) Anemia Assessment & Plan: chronic disease prior chemotherapy Status: Acute (2) Leukocytosis Assessment & Plan: improving on antibiotics Status: Acute (3) Nasopharyngeal carcinoma Assessment & Plan: outpatient salvage therapy Status: Acute
--- NOTE | 2017-03-01 01:52 | CP.PCM.PN ---
Subjective - Date & Time of Evaluation Date of Evaluation: 02/28/17 Time of Evaluation: 18:00 - Subjective Subjective: Has some discomfort around neck Objective - Vital Signs/Intake and Output Vital Signs (last 24 hours): Temp Pulse Resp BP Pulse Ox 98.7 F 96 H 16 138/73 97 02/28/17 18:00 02/28/17 18:00 02/28/17 18:00 02/28/17 18:00 02/28/17 06:00 - Medications Medications: Current Medications Albuterol/Ipratropium (Duoneb 3 Mg/0.5 Mg (3 Ml) Ud) 3 ml IH [id number] [facility] Last Admin: 03/01/17 01:03 Dose: 3 ml Ciprofloxacin/Dexamethasone (Ciprodex Otic) 4 drop AU BID [facility] Stop: 03/02/17 23:59 Last Admin: 02/28/17 18:45 Dose: 4 drop Heparin Sodium (Porcine) (Heparin) 5,000 units SC Q8 [facility] PRN Reason: Protocol Last Admin: 02/28/17 23:04 Dose: 5,000 units Piperacillin Sod/Tazobactam Sod (Zosyn 4.5 Gm In Ns 100ml) 4.5 gm in 100 mls @ 200 mls/hr IVPB Q6 [facility] PRN Reason: Protocol Stop: 03/03/17 18:01 Last Admin: 03/01/17 00:33 Dose: 200 mls/hr Insulin Human Regular (Humulin R Low) 0 units SC ACHS [facility] PRN Reason: Protocol Last Admin: 02/28/17 23:01 Dose: Not Given Methylprednisolone (Solu-Medrol) 20 mg IVP BID [facility] Last Admin: 02/28/17 18:45 Dose: 20 mg Metoprolol Tartrate (Lopressor) 5 mg IVP Q6H PRN PRN Reason: Systolic Blood Pressure Last Admin: 02/28/17 00:11 Dose: 5 mg Morphine Sulfate (Morphine) 4 mg IVP Q4H PRN PRN Reason: Pain, moderate (4-7) Last Admin: 02/28/17 16:18 Dose: 4 mg Nystatin (Nystatin Oral Susp) 5 ml PO QID [facility] Last Admin: 02/28/17 23:05 Dose: Not Given Pantoprazole Sodium (Protonix Inj) 40 mg IVP DAILY [facility] Last Admin: 02/28/17 11:31 Dose: 40 mg - Labs Labs: 02/28/17 06:00 02/28/17 18:35 - Head Exam Head Exam: ATRAUMATIC - Eye Exam Eye Exam: Normal appearance - ENT Exam ENT Exam: Mucous Membranes Dry - Respiratory Exam Respiratory Exam: NORMAL BREATHING PATTERN - Cardiovascular Exam Cardiovascular Exam: +S1, +S2 - GI/Abdominal Exam GI & Abdominal Exam: Normal Bowel Sounds - Extremities Exam Extremities Exam: Normal Inspection Assessment and Plan (1) 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
[2017-03-01 06:28] LABS: GRAN # 9.64 (1.4-6.5); GRAN % 90.2 % (50.0-68.0); HEMATOCRIT 29.1 % (36.0-48.0); LYMPH # 0.5 (1.2-3.4); LYMPH % 4.2 % (22.0-35.0); MEAN CELL VOLUME 87.4 fl (80.0-105.0); MEAN CORPUSCULAR HEMOGLOBIN 29.4 pg (25.0-35.0); MEAN CORPUSCULAR HGB CONC 33.7 g/dl (31.0-37.0); MEAN PLATELET VOLUME 7.8 fl (7.0-11.0); MONO # 0.6 (0.1-0.6); MONO % 5.6 % (1.0-6.0); RED CELL DISTRIBUTION WIDTH 13.1 % (11.5-14.5); WHITE BLOOD COUNT 10.7 10^3/ul (4.5-11.0)
[2017-03-01 06:38] LABS: ALB/GLOB RATIO 1.1 (1.1-1.8); ALKALINE PHOSPHATASE 59 U/L (38-126); ALT/SGPT 34 U/L (7-56); AST/SGOT 40 U/L (14-36); BILIRUBIN,TOTAL 0.5 mg/dL (0.2-1.3); BLOOD UREA NITROGEN 21 mg/dL (7-21); CALCIUM 8.7 mg/dL (8.4-10.5); CARBON DIOXIDE 29 mmol/L (21-33); CHLORIDE 100 mmol/L (95-110); GFR AFRICAN-AMERICAN > 60; GLUCOSE,RANDOM 140 mg/dL (70-110); MAGNESIUM 2.1 mg/dL (1.7-2.2); POTASSIUM 3.6 mmol/L (3.6-5.0); SODIUM 135 mmol/L (132-148); TOTAL PROTEIN 5.7 g/dL (5.8-8.3)
--- NOTE | 2017-03-01 09:04 | CP.PCM.PN ---
Subjective - Date & Time of Evaluation Date of Evaluation: 03/01/17 Time of Evaluation: 09:00 - Subjective Subjective: General Surgery progress note for Dr. Khan Gastrostomy tube in place. Patient tolerating well. Patient in a more cheerful disposition today. Patient has no complaints. Objective - Vital Signs/Intake and Output Vital Signs (last 24 hours): Temp Pulse Resp BP Pulse Ox 97.5 F L 88 18 153/76 H 99 03/01/17 06:00 03/01/17 06:00 03/01/17 06:00 03/01/17 06:00 03/01/17 06:00 Intake and Output: 03/01/17 03/01/17 06:59 18:59 Intake Total 990 Output Total 1500 Balance -510 - Medications Medications: Current Medications Albuterol/Ipratropium (Duoneb 3 Mg/0.5 Mg (3 Ml) Ud) 3 ml IH [id number] [facility] Last Admin: 03/01/17 08:37 Dose: 3 ml Ciprofloxacin/Dexamethasone (Ciprodex Otic) 4 drop AU BID [facility] Stop: 03/02/17 23:59 Last Admin: 02/28/17 18:45 Dose: 4 drop Heparin Sodium (Porcine) (Heparin) 5,000 units SC Q8 DIONI PRN Reason: Protocol Last Admin: 03/01/17 05:11 Dose: 5,000 units Piperacillin Sod/Tazobactam Sod (Zosyn 4.5 Gm In Ns 100ml) 4.5 gm in 100 mls @ 200 mls/hr IVPB Q6 DIONI PRN Reason: Protocol Stop: 03/03/17 18:01 Last Admin: 03/01/17 05:12 Dose: 200 mls/hr Insulin Human Regular (Humulin R Low) 0 units SC ACHS DIONI PRN Reason: Protocol Last Admin: 02/28/17 23:01 Dose: Not Given Methylprednisolone (Solu-Medrol) 20 mg IVP BID [facility] Last Admin: 02/28/17 18:45 Dose: 20 mg Metoprolol Tartrate (Lopressor) 5 mg IVP Q6H PRN PRN Reason: Systolic Blood Pressure Last Admin: 02/28/17 00:11 Dose: 5 mg Morphine Sulfate (Morphine) 4 mg IVP Q4H PRN PRN Reason: Pain, moderate (4-7) Last Admin: 02/28/17 16:18 Dose: 4 mg Nystatin (Nystatin Oral Susp) 5 ml PO QID [facility] Last Admin: 02/28/17 23:05 Dose: Not Given Pantoprazole Sodium (Protonix Inj) 40 mg IVP DAILY [facility] Last Admin: 02/28/17 11:31 Dose: 40 mg - Labs Labs: 03/01/17 06:08 03/01/17 06:08 - Constitutional Appears: No Acute Distress - Head Exam Head Exam: NORMAL INSPECTION - Eye Exam Eye Exam: EOMI, Normal appearance - ENT Exam ENT Exam: Mucous Membranes Moist Additional comments: trach in place. less secretions - Neck Exam Neck Exam: Full ROM - Respiratory Exam Respiratory Exam: NORMAL BREATHING PATTERN. absent: Accessory Muscle Use, Respiratory Distress - Cardiovascular Exam Cardiovascular Exam: REGULAR RHYTHM. absent: Bradycardia, Tachycardia - GI/Abdominal Exam GI & Abdominal Exam: Soft, Tenderness Additional comments: Gastrostomy tube in place. tenderness near site of incision. incision site c/d/i - Extremities Exam Extremities Exam: Normal Inspection. absent: Pedal Edema - Neurological Exam Neurological Exam: Alert, Awake - Psychiatric Exam Psychiatric exam: Normal Affect, Normal Mood - Skin Skin Exam: Dry, Intact, Normal Color, Warm Assessment and Plan - Assessment and Plan (Free Text) Assessment: 72F s/p gastrostomy POD#2 Plan: Per nutrition consult: Glucerna 1.2, start at 30cc/hr, inc by 10cc/hr, goal rate 70cc/hr x 20 hr as tolerated monitor CBCs monitor vitals c/w current medical management d/w Dr. Bill Serna, DO PGY1
[2017-03-01] MEDS: Ciprofloxacin/Dexamethasone OTIC SUSP AU SCH (11:37)
[2017-03-01] MEDS: Nystatin 100,000 Units/ml Oral Susp 5 ml UD PO SCH ×4 (11:39→22:54)
[2017-03-01] MEDS: Morphine 4 mg/ml ISec IVP PRN (11:55)
[2017-03-01] MEDS: Insulin Reg-LOW-Coverage SC SCH ×4 (12:56→22:53)
--- NOTE | 2017-03-01 13:24 | CP.PCM.PN ---
<[place] - Last Filed: 03/01/17 13:24> Subjective - Date & Time of Evaluation Date of Evaluation: 03/01/17 Time of Evaluation: 11:22 - Subjective Subjective: Patient was seen and examined at bedside. Per nursing there were no acute events overnight. The patient reports feeling fine and want's to get up and walk around. The patient denies any pain in her body. The remainder of the ROS was unable to obtain due to her hearing loss. Objective - Vital Signs/Intake and Output Vital Signs (last 24 hours): Temp Pulse Resp BP Pulse Ox 97.5 F L 88 18 153/76 H 99 03/01/17 06:00 03/01/17 06:00 03/01/17 06:00 03/01/17 06:00 03/01/17 06:00 Intake and Output: 03/01/17 03/01/17 06:59 18:59 Intake Total 990 Output Total 1500 Balance -510 - Medications Medications: Current Medications Albuterol/Ipratropium (Duoneb 3 Mg/0.5 Mg (3 Ml) Ud) 3 ml IH [id number] [facility] Last Admin: 03/01/17 08:37 Dose: 3 ml Amoxicillin/Clavulanate Potassium (Augmentin 875 Mg-125 Mg Tab) 1 tab PO Q12 DIONI PRN Reason: Protocol Ciprofloxacin/Dexamethasone (Ciprodex Otic) 4 drop AU BID [facility] Stop: 03/02/17 23:59 Last Admin: 02/28/17 18:45 Dose: 4 drop Heparin Sodium (Porcine) (Heparin) 5,000 units SC Q8 DIONI PRN Reason: Protocol Last Admin: 03/01/17 05:11 Dose: 5,000 units Insulin Human Regular (Humulin R Low) 0 units SC ACHS DIONI PRN Reason: Protocol Last Admin: 03/01/17 12:56 Dose: 1 units Metoprolol Tartrate (Lopressor) 5 mg IVP Q6H PRN PRN Reason: Systolic Blood Pressure Last Admin: 02/28/17 00:11 Dose: 5 mg Morphine Sulfate (Morphine) 4 mg IVP Q4H PRN PRN Reason: Pain, moderate (4-7) Last Admin: 03/01/17 11:55 Dose: 4 mg Nystatin (Nystatin Oral Susp) 5 ml PO QID [facility] Last Admin: 03/01/17 11:39 Dose: 5 ml Pantoprazole Sodium (Protonix Inj) 40 mg IVP DAILY [facility] Last Admin: 03/01/17 11:39 Dose: 40 mg Prednisone (Prednisone Tab) 40 mg PO DAILY [facility] Last Admin: 03/01/17 11:39 Dose: 40 mg - Labs Labs: 03/01/17 06:08 03/01/17 06:08 - Head Exam Head Exam: ATRAUMATIC, NORMAL INSPECTION, NORMOCEPHALIC - Eye Exam Eye Exam: EOMI, Normal appearance, PERRL Pupil Exam: NORMAL ACCOMODATION, PERRL. absent: Irregular - ENT Exam ENT Exam: Mucous Membranes Moist - Neck Exam Neck Exam: Full ROM, Normal Inspection Additional comments: Trach collar placed. - Respiratory Exam Respiratory Exam: Clear to Ausculation Bilateral, NORMAL BREATHING PATTERN - Cardiovascular Exam Cardiovascular Exam: REGULAR RHYTHM - GI/Abdominal Exam GI & Abdominal Exam: Soft, Normal Bowel Sounds - Extremities Exam Extremities Exam: Full ROM, Normal Inspection - Back Exam Back Exam: NORMAL INSPECTION. absent: paraspinal tenderness - Neurological Exam Neurological Exam: Alert, Awake, CN II-XII Intact - Psychiatric Exam Psychiatric exam: Normal Affect, Normal Mood - Skin Skin Exam: Dry, Intact Assessment and Plan - Assessment and Plan (Free Text) Assessment: 1.Patient is a 72-year-old female with a past medical history of recurrent nasopharyngeal cancer is admitted with generalized weakness. Found to have severe hyponatremia <Cynthia GOEL,Lynn - Last Filed: 03/04/17 17:24> Objective - Vital Signs/Intake and Output Vital Signs (last 24 hours): Temp Pulse Resp BP Pulse Ox 97 F L 83 20 131/60 100 03/04/17 07:30 03/04/17 07:30 03/04/17 07:30 03/04/17 07:30 03/04/17 13:23 - Medications Medications: Current Medications Albuterol/Ipratropium (Duoneb 3 Mg/0.5 Mg (3 Ml) Ud) 3 ml IH [id number] [facility] Last Admin: 03/04/17 13:05 Dose: 3 ml Amoxicillin/Clavulanate Potassium (Augmentin 875 Mg-125 Mg Tab) 1 tab PO Q12 [facility] PRN Reason: Protocol Last Admin: 03/04/17 10:07 Dose: 1 tab Guaifenesin (Robitussin) 100 mg PO Q8 PRN PRN Reason: Cough Last Admin: 03/04/17 14:22 Dose: 100 mg Insulin Human Regular (Humulin R Low) 0 units SC ACHS DIONI PRN Reason: Protocol Last Admin: 03/04/17 15:58 Dose: 1 units Metoprolol Tartrate (Lopressor) 5 mg IVP Q6H PRN PRN Reason: Systolic Blood Pressure Last Admin: 03/02/17 15:33 Dose: 5 mg Nystatin (Nystatin Oral Susp) 5 ml PO QID [facility] Last Admin: 03/04/17 14:14 Dose: Not Given Pantoprazole Sodium (Protonix Inj) 40 mg IVP DAILY [facility] Last Admin: 03/04/17 10:07 Dose: 40 mg Prednisone (Prednisone Tab) 20 mg PO DAILY [facility] Last Admin: 03/04/17 10:07 Dose: 20 mg - Labs Labs: 03/04/17 06:45 03/04/17 06:45 Attending/Attestation - Attestation I have personally seen and examined this patient.: Yes I have fully participated in the care of the patient.: Yes I have reviewed all pertinent clinical information, including history, physical exam and plan: Yes Notes (Text): 03/04/17 17:21 Patient was seen and examined with senior medical transcriptionist. 72-year-old female with a past medical history of recurrent nasopharyngeal cancer is admitted with generalized weakness. seen by ENT. Emergency tracheostomy was done. Currently patient is on trach collar.Patient is SP PEG tube feeding,PEG tube feeding is increased to 50 ml/hour, if able to tolerate, can be changed to Bolus feed prior to discharge.Patient is afebrile, on PEG tube Augmentin for possible mastoiditis.Cultures are negative Management plan was discussed in detail with patient and family in detail. Education was provided.
--- NOTE | 2017-03-01 13:36 | PN ---
DATE: 03/01/2017 SUBJECTIVE: The patient is in bed, in no acute distress, nontoxic. PHYSICAL EXAMINATION: VITAL SIGNS: On exam, temperature is 98, blood pressure is 150/70, respiratory rate of 18. HEENT: Unremarkable. NECK: Supple. LUNGS: Decreased breath sounds. HEART: Normal S1 and S2. LABORATORY DATA: Reveals a white count of 10.7, hemoglobin of 9, platelets of 380. Chemistries reveal a BUN of 21, creatinine of 1.0. ASSESSMENT AND PLAN: A 72-year-old female with sepsis probably due to otitis externa in left ear, slowly improving, status post respiratory distress, nasopharyngeal carcinoma, status post tracheostomy, postoperative day #5, status post chemotherapy and radiation in the setting of hypertension, diabetes, and dyslipidemia, day #5 of Zosyn, may switch to p.o. Augmentin. No organisms were cultured. Case discussed with the medical affairs specialist caring for the patient. We will follow closely with you. Miguel Bethea MD
--- NOTE | 2017-03-01 17:00 | CP.PCM.DIS ---
Provider - Provider Date of Admission: 02/24/17 01:45 Attending physician: Lynn Marie MD Primary care physician: Cuate Baxter MD Time Spent in preparation of Discharge (in minutes): 40 Hospital Course - Lab Results Lab Results: Micro Results 02/24/17 02:10 Blood Blood Culture - Final NO GROWTH AFTER 5 DAYS 02/24/17 02:10 Blood Gram Stain - Final TEST NOT PERFORMED 02/24/17 09:47 Nose MRSA Culture (Admit) - Final MRSA NOT DETECTED 02/24/17 04:15 Urine Urine Culture - Final No Growth (<1,000 CFU/ML) Most Recent Lab Values WBC 10.7 10^3/ul (4.5-11.0) 03/01/17 06:08 RBC 3.33 10^6/uL (3.5-6.1) L 03/01/17 06:08 Hgb 9.8 g/dL (12.0-16.0) L 03/01/17 06:08 Hct 29.1 % (36.0-48.0) L 03/01/17 06:08 MCV 87.4 fl (80.0-105.0) 03/01/17 06:08 MCH 29.4 pg (25.0-35.0) 03/01/17 06:08 MCHC 33.7 g/dl (31.0-37.0) 03/01/17 06:08 RDW 13.1 % (11.5-14.5) 03/01/17 06:08 Plt Count 380 10^3/uL (120.0-450.0) 03/01/17 06:08 MPV 7.8 fl (7.0-11.0) 03/01/17 06:08 Gran % 90.2 % (50.0-68.0) H 03/01/17 06:08 Lymph % (Auto) 4.2 % (22.0-35.0) L 03/01/17 06:08 Brown % (Auto) 5.6 % (1.0-6.0) 03/01/17 06:08 Eos % (Auto) 0.0 % (1.5-5.0) L 03/01/17 06:08 Baso % (Auto) 0.0 % (0.0-3.0) 03/01/17 06:08 Gran # 9.64 (1.4-6.5) H 03/01/17 06:08 Lymph # 0.5 (1.2-3.4) L 03/01/17 06:08 Brown # 0.6 (0.1-0.6) 03/01/17 06:08 Eos # 0.0 (0.0-0.7) 03/01/17 06:08 Baso # 0.00 K/mm3 (0.0-2.0) 03/01/17 06:08 Neutrophils % (Manual) 96 % (50.0-70.0) H 02/27/17 05:10 Band Neutrophils % 1 % (0-2) 02/27/17 05:10 Lymphocytes % (Manual) 2 % (22.0-35.0) L 02/27/17 05:10 Monocytes % (Manual) 1 % (1.0-6.0) 02/27/17 05:10 Eosinophils % (Manual) 1 % (0.0-3.0) 02/24/17 00:04 Metamyelocytes % 2 % 02/24/17 00:04 Toxic Granulation Slight 02/27/17 05:10 Platelet Evaluation High (NORMAL) 02/27/17 05:10 Hypochromasia Slight 02/27/17 05:10 Anisocytosis (manual) Slight 02/27/17 05:10 pCO2 39 mm/Hg (35-45) 02/25/17 11:39 pO2 143.0 mm/Hg (80-100) H 02/25/17 11:39 HCO3 24.2 mmol/L (21-28) 02/25/17 11:39 ABG pH 7.40 (7.35-7.45) 02/25/17 11:39 ABG Total CO2 25.4 mmol.L (22-28) 02/25/17 11:39 ABG O2 Saturation 98.5 % (95-98) H 02/25/17 11:39 ABG O2 Content 12.7 ML/dl (15-23) L 02/25/17 11:39 ABG Base Excess -0.5 mmol/L (-2.0-3.0) 02/25/17 11:39 ABG Hemoglobin 9.2 g/dL (11.7-17.4) L 02/25/17 11:39 ABG Carboxyhemoglobin 1.3 % (0.5-1.5) 02/25/17 11:39 POC ABG HHb (Measured) 1.5 % (0-5) 02/25/17 11:39 ABG Methemoglobin 1.2 % (0.0-3.0) 02/25/17 11:39 ABG O2 Capacity 12.9 mL/dl (16-24) L 02/25/17 11:39 Hgb O2 Saturation 95.9 % (95.0-98.0) 02/25/17 11:39 FiO2 50.0 % 02/25/17 11:39 Sodium 135 mmol/L (132-148) 03/01/17 06:08 Potassium 3.6 mmol/L (3.6-5.0) 03/01/17 06:08 Chloride 100 mmol/L (95-110) 03/01/17 06:08 Carbon Dioxide 29 mmol/L (21-33) 03/01/17 06:08 Anion Gap 10 (10-20) 03/01/17 06:08 BUN 21 mg/dL (7-21) 03/01/17 06:08 Creatinine 1.0 mg/dL (0.5-1.4) 03/01/17 06:08 Est GFR ( Amer) > 60 03/01/17 06:08 Est GFR (Non-Af Amer) 55 03/01/17 06:08 POC Glucose (mg/dL) 166 mg/dL (65-110) H 03/01/17 11:24 Random Glucose 140 mg/dL (70-110) H 03/01/17 06:08 Serum Osmolality 261 mosm/kg (271-296) L 02/24/17 06:00 Calcium 8.7 mg/dL (8.4-10.5) 03/01/17 06:08 Phosphorus 3.0 mg/dL (2.5-4.5) 03/01/17 06:08 Magnesium 2.1 mg/dL (1.7-2.2) 03/01/17 06:08 Iron 20 ug/dL (45-180) L 02/24/17 06:00 TIBC 292 ug/dL (265-497) 02/24/17 06:00 % Saturation 7 % (20-55) L 02/24/17 06:00 Ferritin 146.0 ng/mL 02/24/17 06:00 Total Bilirubin 0.5 mg/dL (0.2-1.3) 03/01/17 06:08 AST 40 U/L (14-36) H 03/01/17 06:08 ALT 34 U/L (7-56) 03/01/17 06:08 Alkaline Phosphatase 59 U/L (38-126) 03/01/17 06:08 Lactate Dehydrogenase 517 U/L (333-699) 02/24/17 00:04 Total Creatine Kinase 417 U/L (35-230) H 02/24/17 00:04 CK-MB (CK-2) 17.7 ng/mL (0.0-3.6) H 02/24/17 00:04 CK-MB (CK-2) % 4.2 % (2.5-3.0) H 02/24/17 00:04 Troponin I 0.02 ng/mL 02/24/17 00:04 NT-Pro-B Natriuret Pep 142 pg/mL (0-450) 02/24/17 00:04 Total Protein 5.7 g/dL (5.8-8.3) L 03/01/17 06:08 Albumin 3.1 g/dL (3.0-4.8) 03/01/17 06:08 Globulin 2.7 gm/dL 03/01/17 06:08 Albumin/Globulin Ratio 1.1 (1.1-1.8) 03/01/17 06:08 Vitamin B12 829 pg/mL (239-931) 02/24/17 06:00 Folate > 20.0 ng/mL 02/24/17 06:00 Procalcitonin 0.12 NG/ML (0.19-0.49) L 02/24/17 07:30 Urine Color Light yellow (YELLOW) 02/24/17 04:15 Urine Appearance Sl cloudy (CLEAR) 02/24/17 04:15 Urine pH 7.0 (4.7-8.0) 02/24/17 04:15 Ur Specific Baker 1.015 (1.005-1.035) 02/24/17 04:15 Urine Protein 100 mg/dL (<30 mg/dL) H 02/24/17 04:15 Urine Glucose (UA) 250 mg/dL (NEGATIVE) H 02/24/17 04:15 Urine Ketones Negative mg/dL (NEGATIVE) 02/24/17 04:15 Urine Blood Trace-intact (NEGATIVE) H 02/24/17 04:15 Urine Nitrate Negative (NEGATIVE) 02/24/17 04:15 Urine Bilirubin Negative (NEGATIVE) 02/24/17 04:15 Urine Urobilinogen 0.2 E.U./dL (<1 E.U./dL) 02/24/17 04:15 Ur Leukocyte Esterase Negative Arline/uL (NEGATIVE) 02/24/17 04:15 Urine RBC 1 - 3 /hpf (0-2) 02/24/17 04:15 Urine WBC 0 - 2 /hpf (0-6) 02/24/17 04:15 Ur Epithelial Cells 0 - 2 /hpf (0-5) 02/24/17 04:15 Urine Bacteria Rare (NEG) 02/24/17 04:15 Urine Osmolality 283 mosm/kg (50-645) 02/27/17 06:50 Ur Random Creatinine 9 mg/dL 02/27/17 06:50 Ur Random Sodium 121 meq/L 02/27/17 06:50 Ur Random Potassium 7.3 meq/L 02/27/17 06:50 Urine Chloride 48 mmol/L (32-290) 02/24/17 04:30 - Hospital Course Hospital Course: This is a 72 yr old female with a past medical history of htn, diabetes, dyslipidemia, and nasopharyngeal cancer who comes in complaining of some generalized weakness that was occurring over the past few days. Patient was recently treated for a a ear pain 4 days ago and was given Discharge Exam - Head Exam Head Exam: ATRAUMATIC, NORMAL INSPECTION, NORMOCEPHALIC Discharge Plan - Follow Up Plan Condition: GOOD Disposition: HOME/ ROUTINE Referrals: Cuate Baxter MD [Primary Care Provider] -
[2017-03-01] MEDS: Metoprolol 1 mg/ml Inj IVP PRN (20:42)
[2017-03-01] MEDS: Amoxicillin-Clav 875-125 mg Tab PO SCH (22:53)
[2017-03-02] MEDS: Albuterol-Ipratrop 3 mg / 0.5 (3 ml) UD IH SCH ×4 (01:21→20:15)
--- NOTE | 2017-03-02 07:02 | CP.PCM.PN ---
Subjective - Date & Time of Evaluation Date of Evaluation: 03/02/17 Time of Evaluation: 07:02 - Subjective Subjective: General Surgery progress note for Dr. Khan Gastrostomy tube in place. Patient tolerating well. Decreased secretions. Patient has no complaints at this time. feeds at 50cc/hr Objective - Vital Signs/Intake and Output Vital Signs (last 24 hours): Temp Pulse Resp BP Pulse Ox 97.8 F 82 18 174/95 H 99 03/01/17 18:00 03/01/17 18:00 03/01/17 18:00 03/01/17 18:00 03/01/17 06:00 Intake and Output: 03/02/17 03/02/17 06:59 18:59 Intake Total 0 Balance 0 - Medications Medications: Current Medications Albuterol/Ipratropium (Duoneb 3 Mg/0.5 Mg (3 Ml) Ud) 3 ml IH [id number] [facility] Last Admin: 03/02/17 01:21 Dose: 3 ml Amoxicillin/Clavulanate Potassium (Augmentin 875 Mg-125 Mg Tab) 1 tab PO Q12 DIONI PRN Reason: Protocol Last Admin: 03/01/17 22:53 Dose: 1 tab Ciprofloxacin/Dexamethasone (Ciprodex Otic) 4 drop AU BID [facility] Stop: 03/02/17 23:59 Last Admin: 03/01/17 11:37 Dose: Not Given Heparin Sodium (Porcine) (Heparin) 5,000 units SC Q8 DIONI PRN Reason: Protocol Last Admin: 03/01/17 22:53 Dose: 5,000 units Insulin Human Regular (Humulin R Low) 0 units SC ACHS DIONI PRN Reason: Protocol Last Admin: 03/01/17 22:53 Dose: Not Given Metoprolol Tartrate (Lopressor) 5 mg IVP Q6H PRN PRN Reason: Systolic Blood Pressure Last Admin: 03/01/17 20:42 Dose: 5 mg Morphine Sulfate (Morphine) 4 mg IVP Q4H PRN PRN Reason: Pain, moderate (4-7) Last Admin: 03/01/17 11:55 Dose: 4 mg Nystatin (Nystatin Oral Susp) 5 ml PO QID [facility] Last Admin: 03/01/17 22:54 Dose: Not Given Pantoprazole Sodium (Protonix Inj) 40 mg IVP DAILY [facility] Last Admin: 03/01/17 11:39 Dose: 40 mg Prednisone (Prednisone Tab) 40 mg PO DAILY [facility] Last Admin: 03/01/17 11:39 Dose: 40 mg - Labs Labs: 03/01/17 06:08 03/01/17 06:08 - Constitutional Appears: No Acute Distress - Head Exam Head Exam: NORMAL INSPECTION - Eye Exam Eye Exam: EOMI, Normal appearance - ENT Exam ENT Exam: Mucous Membranes Moist - Neck Exam Neck Exam: Full ROM, Normal Inspection - Respiratory Exam Respiratory Exam: Clear to Ausculation Bilateral. absent: Accessory Muscle Use , Respiratory Distress Additional comments: Patient has a tracheostomy in place. no secretions noted on exam - Cardiovascular Exam Cardiovascular Exam: REGULAR RHYTHM - GI/Abdominal Exam GI & Abdominal Exam: Soft, Tenderness Additional comments: tenderness at site of gastrostomy tube placement and incision site. c/d/i - Extremities Exam Extremities Exam: Full ROM. absent: Pedal Edema - Neurological Exam Neurological Exam: Alert, Awake, Oriented x3 - Psychiatric Exam Psychiatric exam: Normal Affect, Normal Mood - Skin Skin Exam: Dry, Normal Color, Warm Assessment and Plan - Assessment and Plan (Free Text) Assessment: 72F s/p gastrostomy POD#3 Plan: Per nutrition consult: Glucerna 1.2, start at 30cc/hr, inc by 10cc/hr, goal rate 70cc/hr x 20 hr as tolerated current rate at 50cc/hr monitor CBCs monitor vitals c/w current medical management d/w Dr. Bill Serna, DO PGY1
[2017-03-02 07:15] LABS: EOS % 0.1 % (1.5-5.0); GRAN # 12.69 (1.4-6.5); GRAN % 91.3 % (50.0-68.0); HEMATOCRIT 30.8 % (36.0-48.0); LYMPH # 0.6 (1.2-3.4); LYMPH % 4.2 % (22.0-35.0); MEAN CORPUSCULAR HEMOGLOBIN 29.1 pg (25.0-35.0); MEAN CORPUSCULAR HGB CONC 33.1 g/dl (31.0-37.0); MEAN PLATELET VOLUME 7.9 fl (7.0-11.0); MONO # 0.6 (0.1-0.6); MONO % 4.4 % (1.0-6.0); PLATELET COUNT 405 10^3/uL (120.0-450.0); RED CELL DISTRIBUTION WIDTH 13.3 % (11.5-14.5); WHITE BLOOD COUNT 13.9 10^3/ul (4.5-11.0)
[2017-03-02 07:31] LABS: ALB/GLOB RATIO 1.2 (1.1-1.8); ALKALINE PHOSPHATASE 64 U/L (38-126); ALT/SGPT 35 U/L (7-56); AST/SGOT 35 U/L (14-36); BILIRUBIN,TOTAL 0.4 mg/dL (0.2-1.3); BLOOD UREA NITROGEN 30 mg/dL (7-21); CARBON DIOXIDE 32 mmol/L (21-33); CHLORIDE 100 mmol/L (95-110); GFR AFRICAN-AMERICAN > 60; GLUCOSE,RANDOM 180 mg/dL (70-110); MAGNESIUM 2.2 mg/dL (1.7-2.2); PHOSPHOROUS 3.3 mg/dL (2.5-4.5); SODIUM 135 mmol/L (132-148); TOTAL PROTEIN 5.8 g/dL (5.8-8.3)
[2017-03-02] MEDS: Insulin Reg-LOW-Coverage SC SCH ×4 (08:23→22:52)
[2017-03-02 08:46] LABS: NEUTROPHIL 90 % (50.0-70.0)
[2017-03-02] MEDS: Nystatin 100,000 Units/ml Oral Susp 5 ml UD PO SCH ×4 (10:09→22:59)
[2017-03-02] MEDS: Amoxicillin-Clav 875-125 mg Tab PO SCH ×2 (10:09→22:59)
[2017-03-02] MEDS: Ciprofloxacin/Dexamethasone OTIC SUSP AU SCH ×2 (10:11→19:08)
--- NOTE | 2017-03-02 13:39 | PN ---
DATE: 03/02/2017 SUBJECTIVE: The patient is in bed, in no acute distress. PHYSICAL EXAMINATION: VITAL SIGNS: On exam, temperature is 98, blood pressure is 130/60, respiratory rate of 20, and heart rate of 77. HEENT: Examination of the HEENT is unremarkable. NECK: Supple. LUNGS: Decreased breath sounds. HEART: Normal S1 and S2. ABDOMEN: Soft. LABORATORY DATA: Reveals a white count of 13,900, hemoglobin of 10, and platelets of 405. BUN of 30, creatinine of 0.9, and procalcitonin 0.12. Urinalysis is noted. Review of orders reveals the patient placed on Augmentin, Dr. Anderson's note is reviewed. ASSESSMENT AND PLAN: This 72-year-old female with sepsis due to otitis externa in left ear improved, status post respiratory distress, nasopharyngeal carcinoma, status post tracheostomy, and postprocedure day #6, has chemotherapy and radiation, in the case of hypertension, diabetes, and dyslipidemia, day #6 of Zosyn. Upon discharge to complete with p.o. Augmentin. Miguel Bethea MD
[2017-03-02] MEDS: Metoprolol 1 mg/ml Inj IVP PRN (15:33)
--- NOTE | 2017-03-02 23:46 | CP.PCM.PN ---
<Ludy Lindquist - Last Filed: 03/03/17 00:01> Subjective - Date & Time of Evaluation Date of Evaluation: 03/03/17 Time of Evaluation: 00:02 - Subjective Subjective: Patient was seen and examined at bedside. Per nursing there were no acute events overnight. Patient complains of pain at peg tube and uncomfortable trach collar through pointing. The remainder of the ROS was unable to obtain due to her hearing loss. Objective - Vital Signs/Intake and Output Vital Signs (last 24 hours): Temp Pulse Resp BP Pulse Ox 98 F 89 18 167/74 H 95 03/02/17 16:00 03/02/17 16:00 03/02/17 16:00 03/02/17 16:00 03/02/17 16:00 - Medications Medications: Current Medications Albuterol/Ipratropium (Duoneb 3 Mg/0.5 Mg (3 Ml) Ud) 3 ml IH [id number] [facility] Last Admin: 03/02/17 20:15 Dose: 3 ml Amoxicillin/Clavulanate Potassium (Augmentin 875 Mg-125 Mg Tab) 1 tab PO Q12 DIONI PRN Reason: Protocol Last Admin: 03/02/17 22:59 Dose: 1 tab Ciprofloxacin/Dexamethasone (Ciprodex Otic) 4 drop AU BID DIONI Stop: 03/02/17 23:59 Last Admin: 03/02/17 19:08 Dose: Not Given Heparin Sodium (Porcine) (Heparin) 5,000 units SC Q8 DIONI PRN Reason: Protocol Last Admin: 03/02/17 23:21 Dose: 5,000 units Insulin Human Regular (Humulin R Low) 0 units SC ACHS DIONI PRN Reason: Protocol Last Admin: 03/02/17 22:52 Dose: Not Given Metoprolol Tartrate (Lopressor) 5 mg IVP Q6H PRN PRN Reason: Systolic Blood Pressure Last Admin: 03/02/17 15:33 Dose: 5 mg Morphine Sulfate (Morphine) 4 mg IVP Q4H PRN PRN Reason: Pain, moderate (4-7) Last Admin: 03/01/17 11:55 Dose: 4 mg Nystatin (Nystatin Oral Susp) 5 ml PO QID [facility] Last Admin: 03/02/17 22:59 Dose: 5 ml Pantoprazole Sodium (Protonix Inj) 40 mg IVP DAILY [facility] Last Admin: 03/02/17 10:09 Dose: 40 mg Prednisone (Prednisone Tab) 40 mg PO DAILY [facility] Last Admin: 03/02/17 10:09 Dose: 40 mg - Labs Labs: 03/02/17 07:09 03/02/17 07:09 - Constitutional Appears: Non-toxic, No Acute Distress - Head Exam Head Exam: ATRAUMATIC, NORMAL INSPECTION, NORMOCEPHALIC - Eye Exam Eye Exam: Normal appearance - ENT Exam Additional comments: Deaf b/l, trach collar. - Respiratory Exam Respiratory Exam: Clear to Ausculation Bilateral. absent: Rhonchi, Wheezes - Cardiovascular Exam Cardiovascular Exam: RRR, +S1, +S2 - GI/Abdominal Exam GI & Abdominal Exam: Soft. absent: Tenderness Additional comments: wound at gastrostomy site. Clean and Dry. - Neurological Exam Neurological Exam: Alert, Awake, Oriented x3 - Psychiatric Exam Psychiatric exam: Normal Affect, Normal Mood - Skin Skin Exam: Normal Color, Warm Assessment and Plan - Assessment and Plan (Free Text) Assessment: Patient is a 72-year-old female with a past medical history of recurrent nasopharyngeal cancer is admitted with generalized weakness. Found to have severe hyponatremia Plan: Respiratory: -Patient s/p respiratory distress likely due to Nasopharyngeal carcinoma. -Patient s/p tracheotomy Day#5 -Patient vital signs are stable and patient was alert and oriented this morning. -Patient had trach collar s/p Day#3. Consent was received from the patient. PICC placed s/p Day#3 -Will continue to monitor airway management -Failed swallow evaluation twice. Patients daughter request third swallow eval. ID: Sepsis most likely d/t Otomastoiditis -Ciprodex and Augmentin -Blood, Urine, and MRSA cultures negative. Cardiovascular -164/75 this morning . Will follow closely. Hematology/Oncology: -Patient gets treatment at [facility]. -Case discussed with oncologist Dr. Flowers in detail. -Patient diagnosed in 2014 and had 30 rounds of radiation and 6 cycles of chemotherapy in 2014. Patient had recurrence of tumor in 2016. Patient recently had radiation in December(2016) and most recent chemotherapy was 3 weeks at [facility]. -Dr. Baxter aware of current clinical picture. Will f/u with recs. Nephrology: Hypokalemia (Stable) Cont. to monitor. GI ppx -continue protonix DVT ppx -continue SCD's Dispo: Patient already set for rehab placement. Sister wanted to speak to ENT and additional swallow evals. We will reevaluate status tomorrow and likely DC her to rehab. Patient seen, examined, and reviewed with Attending Ludy Lindquist PGY-1 <Ashley Shepherd - Last Filed: 03/03/17 11:17> Objective - Vital Signs/Intake and Output Vital Signs (last 24 hours): Temp Pulse Resp BP Pulse Ox 99.0 F 71 18 147/65 98 03/03/17 07:30 03/03/17 07:30 03/03/17 07:30 03/03/17 07:30 03/03/17 07:30 - Medications Medications: Current Medications Albuterol/Ipratropium (Duoneb 3 Mg/0.5 Mg (3 Ml) Ud) 3 ml IH [id number] [facility] Last Admin: 03/03/17 07:12 Dose: 3 ml Amoxicillin/Clavulanate Potassium (Augmentin 875 Mg-125 Mg Tab) 1 tab PO Q12 DIONI PRN Reason: Protocol Last Admin: 03/03/17 09:17 Dose: 1 tab Guaifenesin (Robitussin) 100 mg PO Q8 PRN PRN Reason: Cough Last Admin: 03/03/17 09:18 Dose: 100 mg Heparin Sodium (Porcine) (Heparin) 5,000 units SC Q8 DIONI PRN Reason: Protocol Last Admin: 03/02/17 23:21 Dose: 5,000 units Insulin Human Regular (Humulin R Low) 0 units SC ACHS DIONI PRN Reason: Protocol Last Admin: 03/03/17 09:16 Dose: 1 units Metoprolol Tartrate (Lopressor) 5 mg IVP Q6H PRN PRN Reason: Systolic Blood Pressure Last Admin: 03/02/17 15:33 Dose: 5 mg Nystatin (Nystatin Oral Susp) 5 ml PO QID [facility] Last Admin: 03/03/17 09:17 Dose: 5 ml Pantoprazole Sodium (Protonix Inj) 40 mg IVP DAILY [facility] Last Admin: 03/03/17 09:18 Dose: 40 mg Prednisone (Prednisone Tab) 40 mg PO DAILY [facility] Last Admin: 03/03/17 09:17 Dose: 40 mg - Labs Labs: 03/03/17 07:30 03/03/17 07:30 Attending/Attestation - Attestation I have personally seen and examined this patient.: Yes I have fully participated in the care of the patient.: Yes I have reviewed all pertinent clinical information, including history, physical exam and plan: Yes Notes (Text): 03/02/17 72 year old female with past medical history of recurrent nasopharyngeal cancer who was admitted for generalized weakness and severe hyponatremia (now resolved) . She had acute respiratory distress for which she was seen by ENT and had emergency tracheostomy done. Continue with trach collar care. She is also s/p PEG tube placement. Tube feeds have been advanced to goal rate. D/c planning is for rehab placement however we will first request for speech and swallow and ENT follow up prior to discharge which is also what the daughter is requesting. Son is at bedside and questions were answered. Ashley Shepherd MD Hospitalist.
[2017-03-03] MEDS: Albuterol-Ipratrop 3 mg / 0.5 (3 ml) UD IH SCH ×4 (03:48→20:21)
[2017-03-03 08:17] LABS: BASO # 0.01 K/mm3 (0.0-2.0); BASO % 0.1 % (0.0-3.0); EOS % 0.1 % (1.5-5.0); GRAN # 12.5 (1.4-6.5); GRAN % 90.6 % (50.0-68.0); HEMATOCRIT 30.8 % (36.0-48.0); LYMPH # 0.6 (1.2-3.4); MEAN CELL VOLUME 88.8 fl (80.0-105.0); MEAN CORPUSCULAR HEMOGLOBIN 29.1 pg (25.0-35.0); MEAN CORPUSCULAR HGB CONC 32.8 g/dl (31.0-37.0); MEAN PLATELET VOLUME 8.3 fl (7.0-11.0); MONO # 0.7 (0.1-0.6); MONO % 5.2 % (1.0-6.0); RED CELL DISTRIBUTION WIDTH 13.7 % (11.5-14.5); WHITE BLOOD COUNT 13.8 10^3/ul (4.5-11.0)
[2017-03-03 09:02] LABS: ALB/GLOB RATIO 1.2 (1.1-1.8); ALKALINE PHOSPHATASE 67 U/L (38-126); ALT/SGPT 42 U/L (7-56); AST/SGOT 42 U/L (14-36); BILIRUBIN,TOTAL 0.3 mg/dL (0.2-1.3); BLOOD UREA NITROGEN 26 mg/dL (7-21); CALCIUM 8.8 mg/dL (8.4-10.5); CARBON DIOXIDE 32 mmol/L (21-33); CHLORIDE 101 mmol/L (98-107); GFR AFRICAN-AMERICAN > 60; GLUCOSE,RANDOM 157 mg/dL (70-110); MAGNESIUM 2.3 mg/dL (1.7-2.2); PHOSPHOROUS 3.1 mg/dL (2.5-4.5); POTASSIUM 3.6 mmol/L (3.6-5.0); SODIUM 140 mmol/L (132-148); TOTAL PROTEIN 5.6 g/dL (5.8-8.3)
[2017-03-03] MEDS: Insulin Reg-LOW-Coverage SC SCH ×4 (09:16→21:48)
[2017-03-03] MEDS: Nystatin 100,000 Units/ml Oral Susp 5 ml UD PO SCH ×3 (09:17→21:27)
[2017-03-03] MEDS: Amoxicillin-Clav 875-125 mg Tab PO SCH ×2 (09:17→21:21)
[2017-03-03] MEDS: guaiFENesin 100 mg/5 ml Syrup UD PO PRN ×2 (09:18→14:38)
--- NOTE | 2017-03-03 11:04 | CP.PCM.PN ---
Subjective - Date & Time of Evaluation Date of Evaluation: 03/03/17 Time of Evaluation: 08:00 - Subjective Subjective: Surgery Progress note. Dr. Khan Pt seen and examined at bedside. Pt c/o pain around incision site with coughing. Denies any F/C. No N/V/D. No new complaints. Tube feeding via Gastrostomy set to 60cc/hr currently. Objective - Vital Signs/Intake and Output Vital Signs (last 24 hours): Temp Pulse Resp BP Pulse Ox 99.0 F 71 18 147/65 98 03/03/17 07:30 03/03/17 07:30 03/03/17 07:30 03/03/17 07:30 03/03/17 07:30 - Medications Medications: Current Medications Albuterol/Ipratropium (Duoneb 3 Mg/0.5 Mg (3 Ml) Ud) 3 ml IH [id number] [facility] Last Admin: 03/03/17 07:12 Dose: 3 ml Amoxicillin/Clavulanate Potassium (Augmentin 875 Mg-125 Mg Tab) 1 tab PO Q12 DIONI PRN Reason: Protocol Last Admin: 03/03/17 09:17 Dose: 1 tab Guaifenesin (Robitussin) 100 mg PO Q8 PRN PRN Reason: Cough Last Admin: 03/03/17 09:18 Dose: 100 mg Heparin Sodium (Porcine) (Heparin) 5,000 units SC Q8 DIONI PRN Reason: Protocol Last Admin: 03/02/17 23:21 Dose: 5,000 units Insulin Human Regular (Humulin R Low) 0 units SC ACHS DIONI PRN Reason: Protocol Last Admin: 03/03/17 09:16 Dose: 1 units Metoprolol Tartrate (Lopressor) 5 mg IVP Q6H PRN PRN Reason: Systolic Blood Pressure Last Admin: 03/02/17 15:33 Dose: 5 mg Nystatin (Nystatin Oral Susp) 5 ml PO QID [facility] Last Admin: 03/03/17 09:17 Dose: 5 ml Pantoprazole Sodium (Protonix Inj) 40 mg IVP DAILY [facility] Last Admin: 03/03/17 09:18 Dose: 40 mg Prednisone (Prednisone Tab) 40 mg PO DAILY [facility] Last Admin: 03/03/17 09:17 Dose: 40 mg - Labs Labs: 03/03/17 07:30 03/03/17 07:30 - Constitutional Appears: Well, No Acute Distress - Head Exam Head Exam: ATRAUMATIC, NORMAL INSPECTION, NORMOCEPHALIC - Eye Exam Eye Exam: EOMI - ENT Exam ENT Exam: Mucous Membranes Moist - Respiratory Exam Respiratory Exam: NORMAL BREATHING PATTERN. absent: Respiratory Distress - Cardiovascular Exam Cardiovascular Exam: RRR. absent: JVD - GI/Abdominal Exam GI & Abdominal Exam: Soft Additional comments: midline incision intact. G-tube in place. Dressing - clean, dry and intact. - Neurological Exam Neurological Exam: Alert, Awake - Skin Skin Exam: Dry, Intact, Warm Assessment and Plan - Assessment and Plan (Free Text) Assessment: 72yo F s/p Gastrostomy on 02/27. POD 4. - May increase TF to goal rate of 70cc/hr for 20hr - Recommend robitussin prn cough - Pain management - continue medical management Further recs as per Dr. Bill Hinkle PGY1 surgery pager: [phone]
--- NOTE | 2017-03-03 13:48 | PN ---
DATE: 03/03/2017 SUBJECTIVE: The patient is seen in bed, in no acute distress, nontoxic. PHYSICAL EXAMINATION VITAL SIGNS: Temperature is 99, blood pressure is 140/60, respiratory rate 18. HEENT: Unremarkable. NECK: Supple. LUNGS: Have decreased breath sounds. HEART: Normal S1 and S2. ABDOMEN: Soft. LABORATORY DATA: Reveals white count of 13,800, hemoglobin of 10, platelets of 445. BUN of 26, creatinine of 0.9, procalcitonin is 0.12. Urinalysis is noted. Microbiology reveals the blood cultures are negative. Urine cultures are negative. ASSESSMENT AND PLAN: This is a 72-year-old female with sepsis due to otitis externa in left ear improved, status post respiratory distress, nasopharyngeal carcinoma, status post tracheostomy, and postprocedure day #7, day #7 of Zosyn, which we switched to Augmentin by medical team. Miguel Bethea MD
[2017-03-03] MEDS ORDERED: guaiFENesin 100 mg/5 ml Syrup UD PO SCH (14:00)
--- NOTE | 2017-03-03 15:50 | CP.PCM.PN ---
<Ludy Lindquist - Last Filed: 03/03/17 15:47> Subjective - Date & Time of Evaluation Date of Evaluation: 03/03/17 Time of Evaluation: 11:00 - Subjective Subjective: Patient has been seen and examined. Complains of abdominal pain at the incision site when coughing. Denies SOB, CP, N/V/D or constipation. ENT stopped by and fixed trach collar. Patient is now comfortable and can speak slightly. Objective - Vital Signs/Intake and Output Vital Signs (last 24 hours): Temp Pulse Resp BP Pulse Ox 99.0 F 71 18 147/65 98 03/03/17 07:30 03/03/17 07:30 03/03/17 07:30 03/03/17 07:30 03/03/17 07:30 - Medications Medications: Current Medications Albuterol/Ipratropium (Duoneb 3 Mg/0.5 Mg (3 Ml) Ud) 3 ml IH [id number] [facility] Last Admin: 03/03/17 13:20 Dose: 3 ml Amoxicillin/Clavulanate Potassium (Augmentin 875 Mg-125 Mg Tab) 1 tab PO Q12 DIONI PRN Reason: Protocol Last Admin: 03/03/17 09:17 Dose: 1 tab Guaifenesin (Robitussin) 100 mg PO Q8 PRN PRN Reason: Cough Last Admin: 03/03/17 14:38 Dose: 100 mg Heparin Sodium (Porcine) (Heparin) 5,000 units SC Q8 DIONI PRN Reason: Protocol Last Admin: 03/03/17 14:26 Dose: 5,000 units Insulin Human Regular (Humulin R Low) 0 units SC ACHS DIONI PRN Reason: Protocol Last Admin: 03/03/17 12:12 Dose: 2 units Metoprolol Tartrate (Lopressor) 5 mg IVP Q6H PRN PRN Reason: Systolic Blood Pressure Last Admin: 03/02/17 15:33 Dose: 5 mg Nystatin (Nystatin Oral Susp) 5 ml PO QID [facility] Last Admin: 03/03/17 14:27 Dose: 5 ml Pantoprazole Sodium (Protonix Inj) 40 mg IVP DAILY [facility] Last Admin: 03/03/17 09:18 Dose: 40 mg Prednisone (Prednisone Tab) 40 mg PO DAILY [facility] Last Admin: 03/03/17 09:17 Dose: 40 mg - Labs Labs: 03/03/17 07:30 03/03/17 07:30 - Head Exam Head Exam: ATRAUMATIC, NORMAL INSPECTION, NORMOCEPHALIC - ENT Exam Additional comments: b/l hearing impairment. - Respiratory Exam Respiratory Exam: Clear to Ausculation Bilateral. absent: Rales, Wheezes, NORMAL BREATHING PATTERN - Cardiovascular Exam Cardiovascular Exam: +S1, +S2 - GI/Abdominal Exam GI & Abdominal Exam: Soft Additional comments: tenderness at incision site. wound clean, dry, non-draining. - Extremities Exam Extremities Exam: absent: Pedal Edema - Neurological Exam Neurological Exam: Alert, Awake, Oriented x3 - Psychiatric Exam Psychiatric exam: Normal Affect, Normal Mood Assessment and Plan - Assessment and Plan (Free Text) Assessment: Patient is a 72-year-old female with a past medical history of recurrent nasopharyngeal cancer is admitted with generalized weakness. Found to have severe hyponatremia Plan: Respiratory: -Patient s/p respiratory distress likely due to Nasopharyngeal carcinoma. -Patient s/p tracheotomy Day#6 -Patient vital signs are stable and patient was alert and oriented this morning. -Patient had trach collar s/p Day#4. Consent was received from the patient. PICC placed s/p Day#4 -Will continue to monitor airway management -Failed swallow evaluation twice. Patients daughter request third swallow eval for today which is pending. ID: Sepsis most likely d/t Otomastoiditis - Augmentin -Blood, Urine, and MRSA cultures negative. Cardiovascular -147/65 this morning . Will follow closely. GI -Speech and swallow suggest. Glucerna 1.2 @ 50cc/hour 1440 kcals 72 grams of protein 1166 ml free H20 or 5 cans bolus per day-per family request. -Started on 5 bolus per day. Hematology/Oncology: -Patient gets treatment at [facility]. -Case discussed with oncologist Dr. Flowers in detail. -Patient diagnosed in 2014 and had 30 rounds of radiation and 6 cycles of chemotherapy in 2014. Patient had recurrence of tumor in 2016. Patient recently had radiation in December(2016) and most recent chemotherapy was 3 weeks at [facility]. -Dr. Baxter aware of current clinical picture. Will f/u with recs. Nephrology: Hypokalemia (Stable) Cont. to monitor. GI ppx -continue protonix DVT ppx -continue SCD's Dispo: Patient already set for rehab placement. Daughter spoke with ENT physician. Trach collar was fixed. Currently PT eval so patient can ambulate and sit up. Patient seen, examined, and reviewed with Attending Ludy Lindquist PGY-1 <Ashley Shepherd - Last Filed: 03/03/17 17:24> Objective - Vital Signs/Intake and Output Vital Signs (last 24 hours): Temp Pulse Resp BP Pulse Ox 99.0 F 71 18 147/65 98 03/03/17 07:30 03/03/17 07:30 03/03/17 07:30 03/03/17 07:30 03/03/17 07:30 - Medications Medications: Current Medications Albuterol/Ipratropium (Duoneb 3 Mg/0.5 Mg (3 Ml) Ud) 3 ml IH [id number] [facility] Last Admin: 03/03/17 13:20 Dose: 3 ml Amoxicillin/Clavulanate Potassium (Augmentin 875 Mg-125 Mg Tab) 1 tab PO Q12 DIONI PRN Reason: Protocol Last Admin: 03/03/17 09:17 Dose: 1 tab Guaifenesin (Robitussin) 100 mg PO Q8 PRN PRN Reason: Cough Last Admin: 03/03/17 14:38 Dose: 100 mg Heparin Sodium (Porcine) (Heparin) 5,000 units SC Q8 DIONI PRN Reason: Protocol Last Admin: 03/03/17 14:26 Dose: 5,000 units Insulin Human Regular (Humulin R Low) 0 units SC ACHS IDONI PRN Reason: Protocol Last Admin: 03/03/17 16:15 Dose: 5 units Metoprolol Tartrate (Lopressor) 5 mg IVP Q6H PRN PRN Reason: Systolic Blood Pressure Last Admin: 03/02/17 15:33 Dose: 5 mg Nystatin (Nystatin Oral Susp) 5 ml PO QID [facility] Last Admin: 03/03/17 14:27 Dose: 5 ml Pantoprazole Sodium (Protonix Inj) 40 mg IVP DAILY [facility] Last Admin: 03/03/17 09:18 Dose: 40 mg Prednisone (Prednisone Tab) 40 mg PO DAILY [facility] Last Admin: 03/03/17 09:17 Dose: 40 mg - Labs Labs: 03/03/17 07:30 03/03/17 07:30 Attending/Attestation - Attestation I have personally seen and examined this patient.: Yes I have fully participated in the care of the patient.: Yes I have reviewed all pertinent clinical information, including history, physical exam and plan: Yes Notes (Text): 03/03/17 17:20 72 year old female with past medical history of recurrent nasopharyngeal cancer who was admitted for generalized weakness and severe hyponatremia (now resolved) . She had acute respiratory distress for which she was seen by ENT and had emergency tracheostomy done. She is also s/p PEG tube placement. ENT follow up was appreciated for trach and dressing change. She is still pending speech and swallow evaluation for d/c planning to rehab. Ashley Shepherd MD Hospitalist.
--- NOTE | 2017-03-04 01:33 | CP.PCM.PN ---
Subjective - Date & Time of Evaluation Date of Evaluation: 03/01/17 Time of Evaluation: 18:40 - Subjective Subjective: Has neck pain. Objective - Vital Signs/Intake and Output Vital Signs (last 24 hours): Temp Pulse Resp BP Pulse Ox 97.6 F 100 H 18 141/64 95 03/03/17 16:00 03/03/17 16:00 03/03/17 16:00 03/03/17 16:00 03/03/17 16:00 - Medications Medications: Current Medications Albuterol/Ipratropium (Duoneb 3 Mg/0.5 Mg (3 Ml) Ud) 3 ml IH [id number] [facility] Last Admin: 03/03/17 20:21 Dose: 3 ml Amoxicillin/Clavulanate Potassium (Augmentin 875 Mg-125 Mg Tab) 1 tab PO Q12 DIONI PRN Reason: Protocol Last Admin: 03/03/17 21:21 Dose: 1 tab Guaifenesin (Robitussin) 100 mg PO Q8 PRN PRN Reason: Cough Last Admin: 03/03/17 14:38 Dose: 100 mg Heparin Sodium (Porcine) (Heparin) 5,000 units SC Q8 DIONI PRN Reason: Protocol Last Admin: 03/03/17 21:26 Dose: 5,000 units Insulin Human Regular (Humulin R Low) 0 units SC ACHS DIONI PRN Reason: Protocol Last Admin: 03/03/17 21:48 Dose: Not Given Metoprolol Tartrate (Lopressor) 5 mg IVP Q6H PRN PRN Reason: Systolic Blood Pressure Last Admin: 03/02/17 15:33 Dose: 5 mg Nystatin (Nystatin Oral Susp) 5 ml PO QID [facility] Last Admin: 03/03/17 21:27 Dose: 5 ml Pantoprazole Sodium (Protonix Inj) 40 mg IVP DAILY [facility] Last Admin: 03/03/17 09:18 Dose: 40 mg Prednisone (Prednisone Tab) 40 mg PO DAILY [facility] Last Admin: 03/03/17 09:17 Dose: 40 mg - Labs Labs: 03/03/17 07:30 03/03/17 07:30 - Eye Exam Eye Exam: Normal appearance - ENT Exam ENT Exam: Mucous Membranes Dry - Respiratory Exam Respiratory Exam: NORMAL BREATHING PATTERN - Cardiovascular Exam Cardiovascular Exam: +S1, +S2 - GI/Abdominal Exam GI & Abdominal Exam: Normal Bowel Sounds - Extremities Exam Extremities Exam: Normal Inspection Assessment and Plan (1) Anemia Assessment & Plan: chronic disease and chemotherapy Status: Acute (2) Leukocytosis Assessment & Plan: on antibiotics Status: Acute (3) Nasopharyngeal carcinoma Assessment & Plan: s/p salvage chemotherapy and radiation outpatient treatment Status: Acute
[2017-03-04] MEDS: Albuterol-Ipratrop 3 mg / 0.5 (3 ml) UD IH SCH ×4 (02:50→20:48)
[2017-03-04] MEDS: guaiFENesin 100 mg/5 ml Syrup UD PO PRN ×2 (05:13→14:22)
[2017-03-04 07:18] LABS: EOS % 0.2 % (1.5-5.0); GRAN # 12.85 (1.4-6.5); HEMATOCRIT 30.9 % (36.0-48.0); LYMPH # 0.6 (1.2-3.4); MEAN CORPUSCULAR HEMOGLOBIN 29.1 pg (25.0-35.0); MEAN CORPUSCULAR HGB CONC 32.7 g/dl (31.0-37.0); MEAN PLATELET VOLUME 8.4 fl (7.0-11.0); MONO # 0.7 (0.1-0.6); MONO % 4.8 % (1.0-6.0); RED CELL DISTRIBUTION WIDTH 13.9 % (11.5-14.5); WHITE BLOOD COUNT 14.1 10^3/ul (4.5-11.0)
[2017-03-04 07:21] LABS: ALB/GLOB RATIO 1.3 (1.1-1.8); ALKALINE PHOSPHATASE 75 U/L (38-126); ALT/SGPT 40 U/L (7-56); AST/SGOT 36 U/L (14-36); BILIRUBIN,TOTAL 0.3 mg/dL (0.2-1.3); BLOOD UREA NITROGEN 27 mg/dL (7-21); CALCIUM 9.1 mg/dL (8.4-10.5); CARBON DIOXIDE 31 mmol/L (21-33); CHLORIDE 100 mmol/L (98-107); GFR AFRICAN-AMERICAN > 60; GLUCOSE,RANDOM 206 mg/dL (70-110); MAGNESIUM 2.4 mg/dL (1.7-2.2); PHOSPHOROUS 3.2 mg/dL (2.5-4.5); POTASSIUM 3.4 mmol/L (3.6-5.0); SODIUM 138 mmol/L (132-148); TOTAL PROTEIN 5.7 g/dL (5.8-8.3)
[2017-03-04 07:31] VITALS: RESP 20
[2017-03-04] MEDS: Insulin Reg-LOW-Coverage SC SCH ×4 (08:17→21:49)
[2017-03-04] MEDS: Amoxicillin-Clav 875-125 mg Tab PO SCH ×2 (10:07→21:47)
[2017-03-04] MEDS: Nystatin 100,000 Units/ml Oral Susp 5 ml UD PO SCH ×4 (10:10→22:38)
--- NOTE | 2017-03-04 16:06 | CP.PCM.PN ---
Subjective - Date & Time of Evaluation Date of Evaluation: 03/04/17 Time of Evaluation: 14:20 - Subjective Subjective: Comfortable, no fevers. Objective - Vital Signs/Intake and Output Vital Signs (last 24 hours): Temp Pulse Resp BP Pulse Ox 97 F L 83 20 131/60 100 03/04/17 07:30 03/04/17 07:30 03/04/17 07:30 03/04/17 07:30 03/04/17 07:30 - Medications Medications: Current Medications Albuterol/Ipratropium (Duoneb 3 Mg/0.5 Mg (3 Ml) Ud) 3 ml IH [id number] [facility] Last Admin: 03/04/17 07:47 Dose: 3 ml Amoxicillin/Clavulanate Potassium (Augmentin 875 Mg-125 Mg Tab) 1 tab PO Q12 DIONI PRN Reason: Protocol Last Admin: 03/04/17 10:07 Dose: 1 tab Guaifenesin (Robitussin) 100 mg PO Q8 PRN PRN Reason: Cough Last Admin: 03/04/17 05:13 Dose: 100 mg Heparin Sodium (Porcine) (Heparin) 5,000 units SC Q8 DIONI PRN Reason: Protocol Last Admin: 03/04/17 05:12 Dose: 5,000 units Insulin Human Regular (Humulin R Low) 0 units SC ACHS DIONI PRN Reason: Protocol Last Admin: 03/04/17 11:56 Dose: 1 units Metoprolol Tartrate (Lopressor) 5 mg IVP Q6H PRN PRN Reason: Systolic Blood Pressure Last Admin: 03/02/17 15:33 Dose: 5 mg Nystatin (Nystatin Oral Susp) 5 ml PO QID [facility] Last Admin: 03/04/17 10:10 Dose: Not Given Pantoprazole Sodium (Protonix Inj) 40 mg IVP DAILY [facility] Last Admin: 03/04/17 10:07 Dose: 40 mg Prednisone (Prednisone Tab) 20 mg PO DAILY [facility] Last Admin: 03/04/17 10:07 Dose: 20 mg - Labs Labs: 03/04/17 06:45 03/04/17 06:45 - Constitutional Appears: Non-toxic, No Acute Distress - Head Exam Head Exam: NORMAL INSPECTION - ENT Exam ENT Exam: Mucous Membranes Moist - Neck Exam Neck Exam: absent: Lymphadenopathy, Meningismus - Respiratory Exam Respiratory Exam: Decreased Breath Sounds - Cardiovascular Exam Cardiovascular Exam: +S1, +S2 - GI/Abdominal Exam GI & Abdominal Exam: Soft. absent: Tenderness Assessment and Plan - Assessment and Plan (Free Text) Plan: Assessment Sepsis probably due to otitis externa of the left ear, improving S/P respiratory distress related to nasopharyngeal carcinoma, S/P tracheostomy tube placement nasopharyngeal cancer on chemotherapy and was treated with radiation therapy HTN DM dyslipidemia Plan continue Augmentin to complete 10-14 days (day 8 today)
--- NOTE | 2017-03-04 16:58 | CP.PCM.PN ---
<RogeGracien - Last Filed: 03/04/17 16:59> Subjective - Date & Time of Evaluation Date of Evaluation: 03/04/17 Time of Evaluation: 07:56 - Subjective Subjective: Patient was seen and examined at bedside. The patient is scheduled to have another speech and swallow evaluation today. The patient is able to speak a little more today. The patient denies any chest pain, shortness of breath , nausea, vomiting, abdominal pain, or any other complaints. Objective - Vital Signs/Intake and Output Vital Signs (last 24 hours): Temp Pulse Resp BP Pulse Ox 97 F L 83 20 131/60 100 03/04/17 07:30 03/04/17 07:30 03/04/17 07:30 03/04/17 07:30 03/04/17 13:23 - Medications Medications: Current Medications Albuterol/Ipratropium (Duoneb 3 Mg/0.5 Mg (3 Ml) Ud) 3 ml IH [id number] DIONI Last Admin: 03/04/17 13:05 Dose: 3 ml Amoxicillin/Clavulanate Potassium (Augmentin 875 Mg-125 Mg Tab) 1 tab PO Q12 DIONI PRN Reason: Protocol Last Admin: 03/04/17 10:07 Dose: 1 tab Guaifenesin (Robitussin) 100 mg PO Q8 PRN PRN Reason: Cough Last Admin: 03/04/17 14:22 Dose: 100 mg Insulin Human Regular (Humulin R Low) 0 units SC ACHS DIONI PRN Reason: Protocol Last Admin: 03/04/17 15:58 Dose: 1 units Metoprolol Tartrate (Lopressor) 5 mg IVP Q6H PRN PRN Reason: Systolic Blood Pressure Last Admin: 03/02/17 15:33 Dose: 5 mg Nystatin (Nystatin Oral Susp) 5 ml PO QID DION[facility] Last Admin: 03/04/17 14:14 Dose: Not Given Pantoprazole Sodium (Protonix Inj) 40 mg IVP DAILY [facility] Last Admin: 03/04/17 10:07 Dose: 40 mg Prednisone (Prednisone Tab) 20 mg PO DAILY [facility] Last Admin: 03/04/17 10:07 Dose: 20 mg - Labs Labs: 03/04/17 06:45 03/04/17 06:45 - Head Exam Head Exam: ATRAUMATIC, NORMAL INSPECTION, NORMOCEPHALIC - Eye Exam Eye Exam: EOMI, Normal appearance, PERRL Pupil Exam: NORMAL ACCOMODATION, PERRL. absent: Irregular - ENT Exam ENT Exam: Mucous Membranes Moist - Neck Exam Additional comments: Trach placed - Respiratory Exam Respiratory Exam: Clear to Ausculation Bilateral, NORMAL BREATHING PATTERN. absent: Chest Wall Tenderness, Respiratory Distress - Cardiovascular Exam Cardiovascular Exam: REGULAR RHYTHM, RRR, +S1, +S2. absent: Rubs - GI/Abdominal Exam GI & Abdominal Exam: Soft, Normal Bowel Sounds - Extremities Exam Extremities Exam: Full ROM - Back Exam Back Exam: NORMAL INSPECTION. absent: paraspinal tenderness - Neurological Exam Neurological Exam: Alert, Awake, CN II-XII Intact - Psychiatric Exam Psychiatric exam: Normal Affect, Normal Mood Assessment and Plan - Assessment and Plan (Free Text) Assessment: 1.Patient is a 72-year-old female with a past medical history of recurrent nasopharyngeal cancer is admitted with generalized weakness. Found to have severe hyponatremia Plan: Respiratory: -Patient s/p respiratory distress likely due to Nasopharyngeal carcinoma. -Patient s/p tracheotomy Day#8 -Patient vital signs are stable and patient was alert and oriented this morning. -Patient had trach collar s/p Day#4. Consent was received from the patient. PICC placed s/p Day#6 -Will continue to monitor airway management -Failed swallow evaluation twice. Patients daughter request third swallow eval for today which is pending. ID: Sepsis most likely d/t Otomastoiditis - Augmentin -Blood, Urine, and MRSA cultures negative. Cardiovascular -131/60 this morning . Will follow closely. GI -Speech and swallow suggest. Glucerna 1.2 @ 50cc/hour 1440 kcals 72 grams of protein 1166 ml free H20 or 5 cans bolus per day-per family request. -Continue 5 bolus per day. -Patient to try Pureed Diet today. Will monitor closely. Hematology/Oncology: -Patient gets treatment at [facility]. -Case discussed with oncologist Dr. Flowers in detail. -Patient diagnosed in 2014 and had 30 rounds of radiation and 6 cycles of chemotherapy in 2014. Patient had recurrence of tumor in 2016. Patient recently had radiation in December(2016) and most recent chemotherapy was 3 weeks at [facility]. -Dr. Baxter aware of current clinical picture. Will f/u with recs. Nephrology: -K 3.4 Today -Will continue to monitor and replete as needed. GI ppx -continue protonix DVT ppx -continue SCD's <Lynn Marie MD - Last Filed: 03/06/17 15:08> Objective - Vital Signs/Intake and Output Vital Signs (last 24 hours): Temp Pulse Resp BP Pulse Ox 98.3 F 90 20 148/73 97 03/06/17 08:10 03/06/17 08:10 03/06/17 08:10 03/06/17 08:10 03/06/17 08:10 Intake and Output: 03/06/17 03/06/17 06:59 18:59 Intake Total 0 Balance 0 - Medications Medications: Current Medications Albuterol/Ipratropium (Duoneb 3 Mg/0.5 Mg (3 Ml) Ud) 3 ml IH [id number] DIONI Last Admin: 03/06/17 13:21 Dose: 3 ml Amoxicillin/Clavulanate Potassium (Augmentin 875 Mg-125 Mg Tab) 1 tab PO Q12 DIONI PRN Reason: Protocol Last Admin: 03/06/17 10:22 Dose: 1 tab Bacitracin (Bacitracin) 0 gm TOP BID DIONI Last Admin: 03/06/17 10:22 Dose: 1 applic Guaifenesin (Robitussin) 100 mg PO Q8 PRN PRN Reason: Cough Last Admin: 03/04/17 14:22 Dose: 100 mg Insulin Human Regular (Humulin R Low) 0 units SC ACHS DIONI PRN Reason: Protocol Last Admin: 03/06/17 11:42 Dose: 1 units Metoprolol Tartrate (Lopressor) 5 mg IVP Q6H PRN PRN Reason: Systolic Blood Pressure Last Admin: 03/02/17 15:33 Dose: 5 mg Nystatin (Nystatin Oral Susp) 5 ml PO QID DIONI Last Admin: 03/06/17 10:27 Dose: 5 ml Pantoprazole Sodium (Protonix Inj) 40 mg IVP DAILY [facility] Last Admin: 03/06/17 10:25 Dose: 40 mg Prednisone (Prednisone Tab) 10 mg PO DAILY DIONI Stop: 03/07/17 23:59 Last Admin: 03/06/17 13:12 Dose: 10 mg - Labs Labs: 03/06/17 06:50 03/06/17 06:50 Attending/Attestation - Attestation I have personally seen and examined this patient.: Yes I have fully participated in the care of the patient.: Yes I have reviewed all pertinent clinical information, including history, physical exam and plan: Yes Notes (Text): 03/06/17 15:04 Patient was seen and examined with medical videographer. 72-year-old female with a past medical history of recurrent nasopharyngeal cancer is admitted with generalized weakness. seen by ENT. Emergency tracheostomy was done. Currently patient is on trach collar.Patient is SP PEG tube .She is tolerating PEG tube feeding.She was evaluated by [facility] and swallow , oral feeding wass not recommended at this time. Patient is on Augmentin for possible mastoiditis.Cultures are negative .Leukocytosis is due to Prednisone.Patient is afebrile. Patient is awaiting for placement. Management plan was discussed in detail with patient and family in detail. Education was provided.
[2017-03-05] MEDS: Albuterol-Ipratrop 3 mg / 0.5 (3 ml) UD IH SCH ×4 (02:45→20:02)
[2017-03-05] MEDS ORDERED: cefTRIAXone 1 gm 1 GM/100 ML BAG IVPB STA (05:53)
[2017-03-05 06:39] LABS: BASO # 0.01 K/mm3 (0.0-2.0); BASO % 0.1 % (0.0-3.0); EOS % 0.2 % (1.5-5.0); GRAN # 13.2 (1.4-6.5); GRAN % 89.9 % (50.0-68.0); HEMATOCRIT 29.7 % (36.0-48.0); LYMPH # 0.8 (1.2-3.4); LYMPH % 5.6 % (22.0-35.0); MEAN CELL VOLUME 89.7 fl (80.0-105.0); MEAN CORPUSCULAR HEMOGLOBIN 29.9 pg (25.0-35.0); MEAN CORPUSCULAR HGB CONC 33.3 g/dl (31.0-37.0); MEAN PLATELET VOLUME 8.3 fl (7.0-11.0); MONO # 0.6 (0.1-0.6); MONO % 4.2 % (1.0-6.0); RED CELL DISTRIBUTION WIDTH 14.1 % (11.5-14.5); WHITE BLOOD COUNT 14.7 10^3/ul (4.5-11.0)
[2017-03-05 07:44] LABS: ALB/GLOB RATIO 1.4 (1.1-1.8); ALKALINE PHOSPHATASE 64 U/L (38-126); ALT/SGPT 51 U/L (7-56); AST/SGOT 46 U/L (14-36); BILIRUBIN,TOTAL 0.3 mg/dL (0.2-1.3); BLOOD UREA NITROGEN 26 mg/dL (7-21); CALCIUM 9.2 mg/dL (8.4-10.5); CARBON DIOXIDE 31 mmol/L (21-33); CHLORIDE 101 mmol/L (98-107); GFR AFRICAN-AMERICAN > 60; GLUCOSE,RANDOM 140 mg/dL (70-110); POTASSIUM 3.8 mmol/L (3.6-5.0); SODIUM 138 mmol/L (132-148); TOTAL PROTEIN 5.5 g/dL (5.8-8.3)
[2017-03-05] MEDS: Insulin Reg-LOW-Coverage SC SCH ×4 (08:29→21:46)
[2017-03-05] MEDS: Amoxicillin-Clav 875-125 mg Tab PO SCH ×2 (10:52→21:44)
[2017-03-05] MEDS: Nystatin 100,000 Units/ml Oral Susp 5 ml UD PO SCH ×5 (10:52→21:45)
--- NOTE | 2017-03-05 13:55 | CP.PCM.PN ---
Subjective - Date & Time of Evaluation Date of Evaluation: 03/05/17 Time of Evaluation: 12:00 - Subjective Subjective: Comfortable on a chair, not in distress, afebrile. Objective - Vital Signs/Intake and Output Vital Signs (last 24 hours): Temp Pulse Resp BP Pulse Ox 98.7 F 84 20 130/70 100 03/05/17 07:29 03/05/17 07:29 03/05/17 07:29 03/05/17 07:29 03/05/17 07:29 Intake and Output: 03/05/17 03/05/17 06:59 18:59 Intake Total 780 Balance 780 - Medications Medications: Current Medications Albuterol/Ipratropium (Duoneb 3 Mg/0.5 Mg (3 Ml) Ud) 3 ml IH [id number] [facility] Last Admin: 03/05/17 07:31 Dose: 3 ml Amoxicillin/Clavulanate Potassium (Augmentin 875 Mg-125 Mg Tab) 1 tab PO Q12 DIONI PRN Reason: Protocol Last Admin: 03/04/17 21:47 Dose: 1 tab Guaifenesin (Robitussin) 100 mg PO Q8 PRN PRN Reason: Cough Last Admin: 03/04/17 14:22 Dose: 100 mg Insulin Human Regular (Humulin R Low) 0 units SC ACHS DIONI PRN Reason: Protocol Last Admin: 03/05/17 08:29 Dose: 1 units Metoprolol Tartrate (Lopressor) 5 mg IVP Q6H PRN PRN Reason: Systolic Blood Pressure Last Admin: 03/02/17 15:33 Dose: 5 mg Nystatin (Nystatin Oral Susp) 5 ml PO QID [facility] Last Admin: 03/04/17 22:38 Dose: Not Given Pantoprazole Sodium (Protonix Inj) 40 mg IVP DAILY [facility] Last Admin: 03/04/17 10:07 Dose: 40 mg Prednisone (Prednisone Tab) 20 mg PO DAILY DION[facility] Stop: 03/05/17 23:59 Last Admin: 03/04/17 10:07 Dose: 20 mg - Labs Labs: 03/05/17 06:31 03/05/17 06:31 - Constitutional Appears: Non-toxic, No Acute Distress - Head Exam Head Exam: NORMAL INSPECTION - ENT Exam ENT Exam: Mucous Membranes Moist - Neck Exam Neck Exam: absent: Meningismus - Respiratory Exam Respiratory Exam: Decreased Breath Sounds - Cardiovascular Exam Cardiovascular Exam: +S1, +S2 - GI/Abdominal Exam GI & Abdominal Exam: Soft. absent: Tenderness Assessment and Plan - Assessment and Plan (Free Text) Plan: Assessment Sepsis probably due to otitis externa of the left ear, clinically improving S/P respiratory distress related to nasopharyngeal carcinoma, S/P tracheostomy tube placement nasopharyngeal cancer on chemotherapy and was treated with radiation therapy HTN DM dyslipidemia Plan continue Augmentin to complete 10-14 days (day 9 today)
--- NOTE | 2017-03-05 18:21 | CP.PCM.PN ---
<RogeSurveyor - Last Filed: 03/05/17 18:22> Subjective - Date & Time of Evaluation Date of Evaluation: 03/05/17 Time of Evaluation: 09:18 - Subjective Subjective: Patient was seen and examined at bedside. The patient reports feeling better. The patient is also speaking more today. The patient was expected to be discharged today pending approval from insurance and the facility. The patient denies any chest pain, shortness of breath, abdominal pain, lightheaded, dizziness, changes in vision, or any other complaints. Objective - Vital Signs/Intake and Output Vital Signs (last 24 hours): Temp Pulse Resp BP Pulse Ox 98.2 F 144 H 20 117/61 96 03/05/17 16:13 03/05/17 16:13 03/05/17 16:13 03/05/17 16:13 03/05/17 16:13 Intake and Output: 03/05/17 03/05/17 06:59 18:59 Intake Total 780 Balance 780 - Medications Medications: Current Medications Albuterol/Ipratropium (Duoneb 3 Mg/0.5 Mg (3 Ml) Ud) 3 ml IH [id number] [facility] Last Admin: 03/05/17 13:58 Dose: 3 ml Amoxicillin/Clavulanate Potassium (Augmentin 875 Mg-125 Mg Tab) 1 tab PO Q12 DIONI PRN Reason: Protocol Last Admin: 03/05/17 10:52 Dose: 1 tab Guaifenesin (Robitussin) 100 mg PO Q8 PRN PRN Reason: Cough Last Admin: 03/04/17 14:22 Dose: 100 mg Insulin Human Regular (Humulin R Low) 0 units SC ACHS DIONI PRN Reason: Protocol Last Admin: 03/05/17 17:07 Dose: 4 units Metoprolol Tartrate (Lopressor) 5 mg IVP Q6H PRN PRN Reason: Systolic Blood Pressure Last Admin: 03/02/17 15:33 Dose: 5 mg Nystatin (Nystatin Oral Susp) 5 ml PO QID [facility] Last Admin: 03/05/17 18:03 Dose: 5 ml Pantoprazole Sodium (Protonix Inj) 40 mg IVP DAILY [facility] Last Admin: 03/05/17 10:52 Dose: 40 mg Prednisone (Prednisone Tab) 20 mg PO DAILY [facility] Stop: 03/05/17 23:59 Last Admin: 03/05/17 10:52 Dose: 20 mg - Labs Labs: 03/05/17 06:31 03/05/17 06:31 - Head Exam Head Exam: ATRAUMATIC, NORMAL INSPECTION, NORMOCEPHALIC - Eye Exam Eye Exam: EOMI, Normal appearance, PERRL. absent: Periorbital tenderness Pupil Exam: NORMAL ACCOMODATION, PERRL - ENT Exam ENT Exam: Mucous Membranes Moist - Neck Exam Additional comments: Trach placed. - Respiratory Exam Respiratory Exam: Clear to Ausculation Bilateral, NORMAL BREATHING PATTERN. absent: Accessory Muscle Use, Chest Wall Tenderness - Cardiovascular Exam Cardiovascular Exam: REGULAR RHYTHM, RRR, +S1, +S2. absent: Rubs - GI/Abdominal Exam GI & Abdominal Exam: Soft, Normal Bowel Sounds. absent: Rigid, Tenderness - Extremities Exam Extremities Exam: absent: Full ROM - Back Exam Back Exam: NORMAL INSPECTION. absent: paraspinal tenderness - Neurological Exam Neurological Exam: Alert, Awake, CN II-XII Intact - Psychiatric Exam Psychiatric exam: Normal Affect, Normal Mood - Skin Skin Exam: Dry, Intact Assessment and Plan - Assessment and Plan (Free Text) Assessment: 1.Patient is a 72-year-old female with a past medical history of recurrent nasopharyngeal cancer is admitted with generalized weakness. Found to have severe hyponatremia. Plan: Respiratory: -Patient s/p respiratory distress likely due to Nasopharyngeal carcinoma. -Patient s/p tracheotomy Day#9 -Patient vital signs are stable and patient was alert and oriented this morning. -Patient had trach collar s/p Day#5. Consent was received from the patient. PICC placed s/p Day#7 -Will continue to monitor airway management -Failed swallow evaluation three times. Will continue NPO per speech therapy. In rehab can revisit with another speech eval in two weeks per speech therapist. ID: Sepsis most likely d/t Otomastoiditis - Continue Augmentin -Blood, Urine, and MRSA cultures negative. Cardiovascular -131/60 this morning . Will follow closely. GI -Speech and swallow suggest. Glucerna 1.2 @ 50cc/hour 1440 kcals 72 grams of protein 1166 ml free H20 or 5 cans bolus per day-per family request. -Continue 5 bolus per day. -Continue pureed diet. Hematology/Oncology: -Patient gets treatment at [facility]. -Case discussed with oncologist Dr. Flowers in detail. -Patient diagnosed in 2015 and had 30 rounds of radiation and 6 cycles of chemotherapy in 2014. Patient had recurrence of tumor in 2016. Patient recently had radiation in December(2016) and most recent chemotherapy was 3 weeks at [facility]. -Dr. Baxter aware of current clinical picture. Will f/u with recs. Nephrology: -K 3.8 Today -Will continue to monitor and replete as needed. GI ppx -continue protonix DVT ppx -continue SCD's <Cynthia GOEL,Lynn - Last Filed: 03/06/17 15:09> Objective - Vital Signs/Intake and Output Vital Signs (last 24 hours): Temp Pulse Resp BP Pulse Ox 98.3 F 90 20 148/73 97 03/06/17 08:10 03/06/17 08:10 03/06/17 08:10 03/06/17 08:10 03/06/17 08:10 Intake and Output: 03/06/17 03/06/17 06:59 18:59 Intake Total 0 Balance 0 - Medications Medications: Current Medications Albuterol/Ipratropium (Duoneb 3 Mg/0.5 Mg (3 Ml) Ud) 3 ml IH [id number] DIONI Last Admin: 03/06/17 13:21 Dose: 3 ml Amoxicillin/Clavulanate Potassium (Augmentin 875 Mg-125 Mg Tab) 1 tab PO Q12 DIONI PRN Reason: Protocol Last Admin: 03/06/17 10:22 Dose: 1 tab Bacitracin (Bacitracin) 0 gm TOP BID DIONI Last Admin: 03/06/17 10:22 Dose: 1 applic Guaifenesin (Robitussin) 100 mg PO Q8 PRN PRN Reason: Cough Last Admin: 03/04/17 14:22 Dose: 100 mg Insulin Human Regular (Humulin R Low) 0 units SC ACHS DIONI PRN Reason: Protocol Last Admin: 03/06/17 11:42 Dose: 1 units Metoprolol Tartrate (Lopressor) 5 mg IVP Q6H PRN PRN Reason: Systolic Blood Pressure Last Admin: 03/02/17 15:33 Dose: 5 mg Nystatin (Nystatin Oral Susp) 5 ml PO QID DIONI Last Admin: 03/06/17 10:27 Dose: 5 ml Pantoprazole Sodium (Protonix Inj) 40 mg IVP DAILY [facility] Last Admin: 03/06/17 10:25 Dose: 40 mg Prednisone (Prednisone Tab) 10 mg PO DAILY [facility] Stop: 03/07/17 23:59 Last Admin: 03/06/17 13:12 Dose: 10 mg - Labs Labs: 03/06/17 06:50 03/06/17 06:50 Attending/Attestation - Attestation I have personally seen and examined this patient.: Yes I have fully participated in the care of the patient.: Yes I have reviewed all pertinent clinical information, including history, physical exam and plan: Yes Notes (Text): 03/06/17 15:08 Patient was seen and examined with electromedical equipment repairer. 72-year-old female with a past medical history of recurrent nasopharyngeal cancer is admitted with generalized weakness. seen by ENT. Emergency tracheostomy was done. Currently patient is on trach collar.Patient is SP PEG tube .She is tolerating PEG tube feeding.She was evaluated by Speech and swallow , oral feeding was not recommended at this time. Patient is on Augmentin for possible mastoiditis.Cultures are negative .Leukocytosis is due to Prednisone.Patient is afebrile. Patient is awaiting for placement. Management plan was discussed in detail with patient and family in detail. Education was provided.
[2017-03-05] MEDS: Bacitracin Ointment 30 GM TUBE TOP SCH (21:44)
[2017-03-06] MEDS: Albuterol-Ipratrop 3 mg / 0.5 (3 ml) UD IH SCH ×3 (01:04→13:21)
[2017-03-06 04:05] VITALS: O2SAT 97
[2017-03-06 07:07] LABS: BASO # 0.01 K/mm3 (0.0-2.0); BASO % 0.1 % (0.0-3.0); EOS % 0.2 % (1.5-5.0); GRAN # 12.88 (1.4-6.5); GRAN % 89.9 % (50.0-68.0); HEMATOCRIT 28.6 % (36.0-48.0); LYMPH # 0.8 (1.2-3.4); LYMPH % 5.4 % (22.0-35.0); MEAN CELL VOLUME 89.7 fl (80.0-105.0); MEAN CORPUSCULAR HEMOGLOBIN 29.5 pg (25.0-35.0); MEAN CORPUSCULAR HGB CONC 32.9 g/dl (31.0-37.0); MEAN PLATELET VOLUME 8.4 fl (7.0-11.0); MONO # 0.6 (0.1-0.6); MONO % 4.4 % (1.0-6.0); RED CELL DISTRIBUTION WIDTH 14.1 % (11.5-14.5); WHITE BLOOD COUNT 14.3 10^3/ul (4.5-11.0)
[2017-03-06 07:36] LABS: ALB/GLOB RATIO 1.3 (1.1-1.8); ALKALINE PHOSPHATASE 65 U/L (38-126); ALT/SGPT 44 U/L (7-56); AST/SGOT 41 U/L (14-36); BILIRUBIN,TOTAL 0.3 mg/dL (0.2-1.3); BLOOD UREA NITROGEN 26 mg/dL (7-21); CALCIUM 9.3 mg/dL (8.4-10.5); CARBON DIOXIDE 32 mmol/L (21-33); CHLORIDE 102 mmol/L (98-107); GFR AFRICAN-AMERICAN > 60; GLUCOSE,RANDOM 119 mg/dL (70-110); POTASSIUM 4.1 mmol/L (3.6-5.0); SODIUM 140 mmol/L (132-148); TOTAL PROTEIN 5.7 g/dL (5.8-8.3)
[2017-03-06 08:18] VITALS: BP 148/73; PULSE 90; TEMP 98.3
[2017-03-06] MEDS: Bacitracin Ointment 30 GM TUBE TOP SCH (10:22)
[2017-03-06] MEDS: Amoxicillin-Clav 875-125 mg Tab PO SCH (10:22)
[2017-03-06] MEDS: Insulin Reg-LOW-Coverage SC SCH ×2 (10:24→11:42)
[2017-03-06] MEDS: Nystatin 100,000 Units/ml Oral Susp 5 ml UD PO SCH (10:27)
--- NOTE | 2017-03-06 12:35 | CP.PCM.PN ---
Subjective - Date & Time of Evaluation Date of Evaluation: 03/06/17 Time of Evaluation: 12:00 - Subjective Subjective: Comfortable, afebrile. Objective - Vital Signs/Intake and Output Vital Signs (last 24 hours): Temp Pulse Resp BP Pulse Ox 98.3 F 90 20 148/73 97 03/06/17 08:10 03/06/17 08:10 03/06/17 08:10 03/06/17 08:10 03/06/17 08:10 Intake and Output: 03/06/17 03/06/17 06:59 18:59 Intake Total 0 Balance 0 - Medications Medications: Current Medications Albuterol/Ipratropium (Duoneb 3 Mg/0.5 Mg (3 Ml) Ud) 3 ml IH [id number] [facility] Last Admin: 03/06/17 07:19 Dose: 3 ml Amoxicillin/Clavulanate Potassium (Augmentin 875 Mg-125 Mg Tab) 1 tab PO Q12 DIONI PRN Reason: Protocol Last Admin: 03/06/17 10:22 Dose: 1 tab Bacitracin (Bacitracin) 0 gm TOP BID [facility] Last Admin: 03/06/17 10:22 Dose: 1 applic Guaifenesin (Robitussin) 100 mg PO Q8 PRN PRN Reason: Cough Last Admin: 03/04/17 14:22 Dose: 100 mg Insulin Human Regular (Humulin R Low) 0 units SC ACHS [facility] PRN Reason: Protocol Last Admin: 03/06/17 10:24 Dose: Not Given Metoprolol Tartrate (Lopressor) 5 mg IVP Q6H PRN PRN Reason: Systolic Blood Pressure Last Admin: 03/02/17 15:33 Dose: 5 mg Nystatin (Nystatin Oral Susp) 5 ml PO QID [facility] Last Admin: 03/06/17 10:27 Dose: 5 ml Pantoprazole Sodium (Protonix Inj) 40 mg IVP DAILY [facility] Last Admin: 03/06/17 10:25 Dose: 40 mg - Labs Labs: 03/06/17 06:50 03/06/17 06:50 - Constitutional Appears: Non-toxic, No Acute Distress - Head Exam Head Exam: NORMAL INSPECTION - ENT Exam ENT Exam: Mucous Membranes Moist - Neck Exam Neck Exam: absent: Meningismus - Respiratory Exam Respiratory Exam: Decreased Breath Sounds - Cardiovascular Exam Cardiovascular Exam: +S1, +S2 - GI/Abdominal Exam GI & Abdominal Exam: Soft. absent: Tenderness Assessment and Plan - Assessment and Plan (Free Text) Plan: Assessment Sepsis probably due to otitis externa of the left ear, clinically improving S/P respiratory distress related to nasopharyngeal carcinoma, S/P tracheostomy tube placement nasopharyngeal cancer on chemotherapy and was treated with radiation therapy HTN DM dyslipidemia Plan continue Augmentin to complete 10-14 days (day 10 today)
--- NOTE | 2017-03-06 14:13 | CP.PCM.DIS ---
<Burt Guan - Last Filed: 03/06/17 16:04> Provider - Provider Date of Admission: 02/24/17 01:45 Attending physician: Lynn Marie MD Primary care physician: Cuate Baxter MD Time Spent in preparation of Discharge (in minutes): 45 Hospital Course - Lab Results Lab Results: Micro Results 02/24/17 02:10 Blood Blood Culture - Final NO GROWTH AFTER 5 DAYS 02/24/17 02:10 Blood Gram Stain - Final TEST NOT PERFORMED 02/24/17 09:47 Nose MRSA Culture (Admit) - Final MRSA NOT DETECTED 02/24/17 04:15 Urine Urine Culture - Final No Growth (<1,000 CFU/ML) Most Recent Lab Values WBC 14.3 10^3/ul (4.5-11.0) H 03/06/17 06:50 RBC 3.19 10^6/uL (3.5-6.1) L 03/06/17 06:50 Hgb 9.4 g/dL (12.0-16.0) L 03/06/17 06:50 Hct 28.6 % (36.0-48.0) L 03/06/17 06:50 MCV 89.7 fl (80.0-105.0) 03/06/17 06:50 MCH 29.5 pg (25.0-35.0) 03/06/17 06:50 MCHC 32.9 g/dl (31.0-37.0) 03/06/17 06:50 RDW 14.1 % (11.5-14.5) 03/06/17 06:50 Plt Count 404 10^3/uL (120.0-450.0) 03/06/17 06:50 MPV 8.4 fl (7.0-11.0) 03/06/17 06:50 Gran % 89.9 % (50.0-68.0) H 03/06/17 06:50 Lymph % (Auto) 5.4 % (22.0-35.0) L 03/06/17 06:50 Berks % (Auto) 4.4 % (1.0-6.0) 03/06/17 06:50 Eos % (Auto) 0.2 % (1.5-5.0) L 03/06/17 06:50 Baso % (Auto) 0.1 % (0.0-3.0) 03/06/17 06:50 Gran # 12.88 (1.4-6.5) H 03/06/17 06:50 Lymph # 0.8 (1.2-3.4) L 03/06/17 06:50 Berks # 0.6 (0.1-0.6) 03/06/17 06:50 Eos # 0.0 (0.0-0.7) 03/06/17 06:50 Baso # 0.01 K/mm3 (0.0-2.0) 03/06/17 06:50 Neutrophils % (Manual) 90 % (50.0-70.0) H 03/02/17 07:09 Band Neutrophils % 1 % (0-2) 02/27/17 05:10 Lymphocytes % (Manual) 4 % (22.0-35.0) L 03/02/17 07:09 Monocytes % (Manual) 6 % (1.0-6.0) 03/02/17 07:09 Eosinophils % (Manual) 1 % (0.0-3.0) 02/24/17 00:04 Metamyelocytes % 2 % 02/24/17 00:04 Toxic Granulation Slight 02/27/17 05:10 Platelet Evaluation High (NORMAL) 02/27/17 05:10 Hypochromasia Slight 02/27/17 05:10 Anisocytosis (manual) Slight 02/27/17 05:10 pCO2 39 mm/Hg (35-45) 02/25/17 11:39 pO2 143.0 mm/Hg (80-100) H 02/25/17 11:39 HCO3 24.2 mmol/L (21-28) 02/25/17 11:39 ABG pH 7.40 (7.35-7.45) 02/25/17 11:39 ABG Total CO2 25.4 mmol.L (22-28) 02/25/17 11:39 ABG O2 Saturation 98.5 % (95-98) H 02/25/17 11:39 ABG O2 Content 12.7 ML/dl (15-23) L 02/25/17 11:39 ABG Base Excess -0.5 mmol/L (-2.0-3.0) 02/25/17 11:39 ABG Hemoglobin 9.2 g/dL (11.7-17.4) L 02/25/17 11:39 ABG Carboxyhemoglobin 1.3 % (0.5-1.5) 02/25/17 11:39 POC ABG HHb (Measured) 1.5 % (0-5) 02/25/17 11:39 ABG Methemoglobin 1.2 % (0.0-3.0) 02/25/17 11:39 ABG O2 Capacity 12.9 mL/dl (16-24) L 02/25/17 11:39 Hgb O2 Saturation 95.9 % (95.0-98.0) 02/25/17 11:39 FiO2 50.0 % 02/25/17 11:39 Sodium 140 mmol/L (132-148) 03/06/17 06:50 Potassium 4.1 mmol/L (3.6-5.0) 03/06/17 06:50 Chloride 102 mmol/L (98-107) 03/06/17 06:50 Carbon Dioxide 32 mmol/L (21-33) 03/06/17 06:50 Anion Gap 10 (10-20) 03/06/17 06:50 BUN 26 mg/dL (7-21) H 03/06/17 06:50 Creatinine 0.9 mg/dL (0.5-1.4) 03/06/17 06:50 Est GFR ( Amer) > 60 03/06/17 06:50 Est GFR (Non-Af Amer) > 60 03/06/17 06:50 POC Glucose (mg/dL) 191 mg/dL (65-110) H 03/06/17 11:24 Random Glucose 119 mg/dL (70-110) H 03/06/17 06:50 Serum Osmolality 261 mosm/kg (271-296) L 02/24/17 06:00 Calcium 9.3 mg/dL (8.4-10.5) 03/06/17 06:50 Phosphorus 3.2 mg/dL (2.5-4.5) 03/04/17 06:45 Magnesium 2.4 mg/dL (1.7-2.2) H 03/04/17 06:45 Iron 20 ug/dL (45-180) L 02/24/17 06:00 TIBC 292 ug/dL (265-497) 02/24/17 06:00 % Saturation 7 % (20-55) L 02/24/17 06:00 Ferritin 146.0 ng/mL 02/24/17 06:00 Total Bilirubin 0.3 mg/dL (0.2-1.3) 03/06/17 06:50 AST 41 U/L (14-36) H 03/06/17 06:50 ALT 44 U/L (7-56) 03/06/17 06:50 Alkaline Phosphatase 65 U/L (38-126) 03/06/17 06:50 Lactate Dehydrogenase 517 U/L (333-699) 02/24/17 00:04 Total Creatine Kinase 417 U/L (35-230) H 02/24/17 00:04 CK-MB (CK-2) 17.7 ng/mL (0.0-3.6) H 02/24/17 00:04 CK-MB (CK-2) % 4.2 % (2.5-3.0) H 02/24/17 00:04 Troponin I 0.02 ng/mL 02/24/17 00:04 NT-Pro-B Natriuret Pep 142 pg/mL (0-450) 02/24/17 00:04 Total Protein 5.7 g/dL (5.8-8.3) L 03/06/17 06:50 Albumin 3.2 g/dL (3.0-4.8) 03/06/17 06:50 Globulin 2.5 gm/dL 03/06/17 06:50 Albumin/Globulin Ratio 1.3 (1.1-1.8) 03/06/17 06:50 Vitamin B12 829 pg/mL (239-931) 02/24/17 06:00 Folate > 20.0 ng/mL 02/24/17 06:00 Procalcitonin 0.12 NG/ML (0.19-0.49) L 02/24/17 07:30 Urine Color Light yellow (YELLOW) 02/24/17 04:15 Urine Appearance Sl cloudy (CLEAR) 02/24/17 04:15 Urine pH 7.0 (4.7-8.0) 02/24/17 04:15 Ur Specific Grants 1.015 (1.005-1.035) 02/24/17 04:15 Urine Protein 100 mg/dL (<30 mg/dL) H 02/24/17 04:15 Urine Glucose (UA) 250 mg/dL (NEGATIVE) H 02/24/17 04:15 Urine Ketones Negative mg/dL (NEGATIVE) 02/24/17 04:15 Urine Blood Trace-intact (NEGATIVE) H 02/24/17 04:15 Urine Nitrate Negative (NEGATIVE) 02/24/17 04:15 Urine Bilirubin Negative (NEGATIVE) 02/24/17 04:15 Urine Urobilinogen 0.2 E.U./dL (<1 E.U./dL) 02/24/17 04:15 Ur Leukocyte Esterase Negative Arline/uL (NEGATIVE) 02/24/17 04:15 Urine RBC 1 - 3 /hpf (0-2) 02/24/17 04:15 Urine WBC 0 - 2 /hpf (0-6) 02/24/17 04:15 Ur Epithelial Cells 0 - 2 /hpf (0-5) 02/24/17 04:15 Urine Bacteria Rare (NEG) 02/24/17 04:15 Urine Osmolality 283 mosm/kg (50-645) 02/27/17 06:50 Ur Random Creatinine 9 mg/dL 02/27/17 06:50 Ur Random Sodium 121 meq/L 02/27/17 06:50 Ur Random Potassium 7.3 meq/L 02/27/17 06:50 Urine Chloride 48 mmol/L (32-290) 02/24/17 04:30 - Hospital Course Hospital Course: This is a 72 year old female with a past medical history of nasopharyngeal cancer(last chemotherapy three weeks ago), HTN, DM who presented with weakness for the past couple of days. Patient has been complaining of congestion, dry cough, and left ear pain for the past 4 days and she received promethazine DM by Dr. Baxter 4 days ago. Patient is also reporting worsening dysphagia most likely due to left ear swelling. 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 While in the ED her heart rate was 110, normal sinus rhythm, leukocytosis at 17.1 with bands of 4, and Troponins were negative x1. Patient was started on hypertonic saline 3% @30/hr due to her Na being 115. The patient also received Zosyn for her leukocytosis. After being admitted, the patient began to desat's and it was decided to put in a emergency tracheostomy for airway support. The patient also had 3 failed speech and swallow evals. It was decided that the patient should have a G-Tube place for nutrition. Heme/Onc, ENT, Renal, and Surgery were consulted during her stay. Patient remained NPO per speech therapy and would have another PO trial in two weeks at the facility. The patient was discharged today. Discharge Exam - Head Exam Head Exam: NORMAL INSPECTION - Eye Exam Eye Exam: EOMI, Normal appearance, PERRL Pupil Exam: NORMAL ACCOMODATION - ENT Exam ENT Exam: Mucous Membranes Moist - Neck Exam Additional comments: Trach placement. - Respiratory Exam Respiratory Exam: Clear to PA & Lateral, NORMAL BREATHING PATTERN. absent: Chest Wall Tenderness, Respiratory Distress - Cardiovascular Exam Cardiovascular Exam: REGULAR RHYTHM, +S1 - GI/Abdominal Exam GI & Abdominal Exam: Normal Bowel Sounds, Unremarkable Additional comments: G tube placement. - Neurological Exam Neurological exam: Alert, CN II-XII Intact - Psychiatric Exam Psychiatric exam: Normal Affect, Normal Mood - Skin Skin Exam: Dry, Intact Discharge Plan - Discharge Medications Prescriptions: Amoxicillin/Clavulanate [Augmentin 875 MG-125 MG] 1 tab PO Q12 #6 tab Ciprofloxacin/Dexamethasone [Ciprodex Otic] 4 drop AU BID #1 bottle Nut.tx.gluc.intoler,Lac-Fr,Soy [Glucerna 1.2 Jamie 240 ml] 237 ml PO 5XD #50 liq predniSONE [predniSONE Tab] 10 mg PO DAILY #1 tab predniSONE [predniSONE Tab] 5 mg PO DAILY #2 tab - Follow Up Plan Condition: GOOD Disposition: TRANSF TO [facility] Additional Instructions: Discharge instructions: - patient discharge to subacute rehab - nothing by month, tube feedings only - follow up Audiometry with ENT in 2 weeks - follow up with PMD in 3-5 days - predisone taper instructions: -take 10 mg tab daily for 1 days -take 5 mg tab daily for 2 days Referrals: Cuate Baxter MD [Primary Care Provider] - <Lynn Marie MD - Last Filed: 03/07/17 08:04> Provider - Provider Date of Admission: 02/24/17 01:45 Attending physician: Lynn Marie MD Primary care physician: Cuate Baxter MD Hospital Course - Lab Results Lab Results: Micro Results 02/24/17 02:10 Blood Blood Culture - Final NO GROWTH AFTER 5 DAYS 02/24/17 02:10 Blood Gram Stain - Final TEST NOT PERFORMED 02/24/17 09:47 Nose MRSA Culture (Admit) - Final MRSA NOT DETECTED 02/24/17 04:15 Urine Urine Culture - Final No Growth (<1,000 CFU/ML) Most Recent Lab Values WBC 14.3 10^3/ul (4.5-11.0) H 03/06/17 06:50 RBC 3.19 10^6/uL (3.5-6.1) L 03/06/17 06:50 Hgb 9.4 g/dL (12.0-16.0) L 03/06/17 06:50 Hct 28.6 % (36.0-48.0) L 03/06/17 06:50 MCV 89.7 fl (80.0-105.0) 03/06/17 06:50 MCH 29.5 pg (25.0-35.0) 03/06/17 06:50 MCHC 32.9 g/dl (31.0-37.0) 03/06/17 06:50 RDW 14.1 % (11.5-14.5) 03/06/17 06:50 Plt Count 404 10^3/uL (120.0-450.0) 03/06/17 06:50 MPV 8.4 fl (7.0-11.0) 03/06/17 06:50 Gran % 89.9 % (50.0-68.0) H 03/06/17 06:50 Lymph % (Auto) 5.4 % (22.0-35.0) L 03/06/17 06:50 Berks % (Auto) 4.4 % (1.0-6.0) 03/06/17 06:50 Eos % (Auto) 0.2 % (1.5-5.0) L 03/06/17 06:50 Baso % (Auto) 0.1 % (0.0-3.0) 03/06/17 06:50 Gran # 12.88 (1.4-6.5) H 03/06/17 06:50 Lymph # 0.8 (1.2-3.4) L 03/06/17 06:50 Berks # 0.6 (0.1-0.6) 03/06/17 06:50 Eos # 0.0 (0.0-0.7) 03/06/17 06:50 Baso # 0.01 K/mm3 (0.0-2.0) 03/06/17 06:50 Neutrophils % (Manual) 90 % (50.0-70.0) H 03/02/17 07:09 Band Neutrophils % 1 % (0-2) 02/27/17 05:10 Lymphocytes % (Manual) 4 % (22.0-35.0) L 03/02/17 07:09 Monocytes % (Manual) 6 % (1.0-6.0) 03/02/17 07:09 Eosinophils % (Manual) 1 % (0.0-3.0) 02/24/17 00:04 Metamyelocytes % 2 % 02/24/17 00:04 Toxic Granulation Slight 02/27/17 05:10 Platelet Evaluation High (NORMAL) 02/27/17 05:10 Hypochromasia Slight 02/27/17 05:10 Anisocytosis (manual) Slight 02/27/17 05:10 pCO2 39 mm/Hg (35-45) 02/25/17 11:39 pO2 143.0 mm/Hg (80-100) H 02/25/17 11:39 HCO3 24.2 mmol/L (21-28) 02/25/17 11:39 ABG pH 7.40 (7.35-7.45) 02/25/17 11:39 ABG Total CO2 25.4 mmol.L (22-28) 02/25/17 11:39 ABG O2 Saturation 98.5 % (95-98) H 02/25/17 11:39 ABG O2 Content 12.7 ML/dl (15-23) L 02/25/17 11:39 ABG Base Excess -0.5 mmol/L (-2.0-3.0) 02/25/17 11:39 ABG Hemoglobin 9.2 g/dL (11.7-17.4) L 02/25/17 11:39 ABG Carboxyhemoglobin 1.3 % (0.5-1.5) 02/25/17 11:39 POC ABG HHb (Measured) 1.5 % (0-5) 02/25/17 11:39 ABG Methemoglobin 1.2 % (0.0-3.0) 02/25/17 11:39 ABG O2 Capacity 12.9 mL/dl (16-24) L 02/25/17 11:39 Hgb O2 Saturation 95.9 % (95.0-98.0) 02/25/17 11:39 FiO2 50.0 % 02/25/17 11:39 Sodium 140 mmol/L (132-148) 03/06/17 06:50 Potassium 4.1 mmol/L (3.6-5.0) 03/06/17 06:50 Chloride 102 mmol/L (98-107) 03/06/17 06:50 Carbon Dioxide 32 mmol/L (21-33) 03/06/17 06:50 Anion Gap 10 (10-20) 03/06/17 06:50 BUN 26 mg/dL (7-21) H 03/06/17 06:50 Creatinine 0.9 mg/dL (0.5-1.4) 03/06/17 06:50 Est GFR ( Amer) > 60 03/06/17 06:50 Est GFR (Non-Af Amer) > 60 03/06/17 06:50 POC Glucose (mg/dL) 191 mg/dL (65-110) H 03/06/17 11:24 Random Glucose 119 mg/dL (70-110) H 03/06/17 06:50 Serum Osmolality 261 mosm/kg (271-296) L 02/24/17 06:00 Calcium 9.3 mg/dL (8.4-10.5) 03/06/17 06:50 Phosphorus 3.2 mg/dL (2.5-4.5) 03/04/17 06:45 Magnesium 2.4 mg/dL (1.7-2.2) H 03/04/17 06:45 Iron 20 ug/dL (45-180) L 02/24/17 06:00 TIBC 292 ug/dL (265-497) 02/24/17 06:00 % Saturation 7 % (20-55) L 02/24/17 06:00 Ferritin 146.0 ng/mL 02/24/17 06:00 Total Bilirubin 0.3 mg/dL (0.2-1.3) 03/06/17 06:50 AST 41 U/L (14-36) H 03/06/17 06:50 ALT 44 U/L (7-56) 03/06/17 06:50 Alkaline Phosphatase 65 U/L (38-126) 03/06/17 06:50 Lactate Dehydrogenase 517 U/L (333-699) 02/24/17 00:04 Total Creatine Kinase 417 U/L (35-230) H 02/24/17 00:04 CK-MB (CK-2) 17.7 ng/mL (0.0-3.6) H 02/24/17 00:04 CK-MB (CK-2) % 4.2 % (2.5-3.0) H 02/24/17 00:04 Troponin I 0.02 ng/mL 02/24/17 00:04 NT-Pro-B Natriuret Pep 142 pg/mL (0-450) 02/24/17 00:04 Total Protein 5.7 g/dL (5.8-8.3) L 03/06/17 06:50 Albumin 3.2 g/dL (3.0-4.8) 03/06/17 06:50 Globulin 2.5 gm/dL 03/06/17 06:50 Albumin/Globulin Ratio 1.3 (1.1-1.8) 03/06/17 06:50 Vitamin B12 829 pg/mL (239-931) 02/24/17 06:00 Folate > 20.0 ng/mL 02/24/17 06:00 Procalcitonin 0.12 NG/ML (0.19-0.49) L 02/24/17 07:30 Urine Color Light yellow (YELLOW) 02/24/17 04:15 Urine Appearance Sl cloudy (CLEAR) 02/24/17 04:15 Urine pH 7.0 (4.7-8.0) 02/24/17 04:15 Ur Specific Grants 1.015 (1.005-1.035) 02/24/17 04:15 Urine Protein 100 mg/dL (<30 mg/dL) H 02/24/17 04:15 Urine Glucose (UA) 250 mg/dL (NEGATIVE) H 02/24/17 04:15 Urine Ketones Negative mg/dL (NEGATIVE) 02/24/17 04:15 Urine Blood Trace-intact (NEGATIVE) H 02/24/17 04:15 Urine Nitrate Negative (NEGATIVE) 02/24/17 04:15 Urine Bilirubin Negative (NEGATIVE) 02/24/17 04:15 Urine Urobilinogen 0.2 E.U./dL (<1 E.U./dL) 02/24/17 04:15 Ur Leukocyte Esterase Negative Arline/uL (NEGATIVE) 02/24/17 04:15 Urine RBC 1 - 3 /hpf (0-2) 02/24/17 04:15 Urine WBC 0 - 2 /hpf (0-6) 02/24/17 04:15 Ur Epithelial Cells 0 - 2 /hpf (0-5) 02/24/17 04:15 Urine Bacteria Rare (NEG) 02/24/17 04:15 Urine Osmolality 283 mosm/kg (50-645) 02/27/17 06:50 Ur Random Creatinine 9 mg/dL 02/27/17 06:50 Ur Random Sodium 121 meq/L 02/27/17 06:50 Ur Random Potassium 7.3 meq/L 02/27/17 06:50 Urine Chloride 48 mmol/L (32-290) 02/24/17 04:30 Attending/Attestation - Attestation I have personally seen and examined this patient.: Yes I have fully participated in the care of the patient.: Yes I have reviewed all pertinent clinical information, including history, physical exam and plan: Yes Notes (Text): 03/07/17 08:03 Patient was seen and examined with pediatric medical assistant. 72-year-old female with a past medical history of recurrent nasopharyngeal cancer is admitted with generalized weakness. seen by ENT. Emergency tracheostomy was done. Currently patient is on trach collar.Patient is SP PEG tube .She is tolerating PEG tube feeding.She was evaluated by Speech and swallow , oral feedingis not recommended at this time.Patient will need repeat swallow evaluation in 3-4 weeks. Patient is on Augmentin for possible mastoiditis.Cultures are negative .Leukocytosis is due to Prednisone.Patient is afebrile. Management plan was discussed in detail with patient and family in detail. Education was provided.
== END 2017-03-06 15:53 | DRG 878 ==
LOC: ED 23:04 → ERH 02-24 01:45 → 2RSO 02-24 03:12 → CCU 02-24 09:18 → 2RNO 02-27 18:24 → 5RNO 03-01 21:59
PROVIDERS: ADMIT Internal Medicine; ATTEND Internal Medicine
PROC: 5A1945Z Respiratory Ventilation, 24-96 Consecutive Hours (ICD-10-PCS; 2017-02-24)
PROC: 0CJS8ZZ Inspection of Larynx, Via Natural or Artificial Opening Endoscopic (ICD-10-PCS; 2017-02-24)
PROC: 5A09357 Assistance with Respiratory Ventilation, Less than 24 Consecutive Hours, Continuous Positive Airway Pressure (ICD-10-PCS; 2017-02-24)
PROC: 0B110F4 Bypass Trachea to Cutaneous with Tracheostomy Device, Open Approach (ICD-10-PCS; principal; 2017-02-24 11:00)
PROC: 0DH60UZ Insertion of Feeding Device into Stomach, Open Approach (ICD-10-PCS; 2017-02-27)
PROC: 02HV33Z Insertion of Infusion Device into Superior Vena Cava, Percutaneous Approach (ICD-10-PCS; 2017-02-27)
PROC: B54MZZA Ultrasonography of Right Upper Extremity Veins, Guidance (ICD-10-PCS; 2017-02-27)
DX: A41.9 Sepsis, unspecified organism (principal); J96.92 Respiratory failure, unspecified with hypercapnia; E22.2 Syndrome of inappropriate secretion of antidiuretic hormone; E46 Unspecified protein-calorie malnutrition; E87.3 Alkalosis; E87.6 Hypokalemia; C11.9 Malignant neoplasm of nasopharynx, unspecified; E86.9 Volume depletion, unspecified; I10 Essential (primary) hypertension; E11.9 Type 2 diabetes mellitus without complications; H60.92 Unspecified otitis externa, left ear; H70.892 Other mastoiditis and related conditions, left ear; H90.8 Mixed conductive and sensorineural hearing loss, unspecified; E78.5 Hyperlipidemia, unspecified; K12.33 Oral mucositis (ulcerative) due to radiation; R13.19 Other dysphagia; D63.8 Anemia in other chronic diseases classified elsewhere; D50.9 Iron deficiency anemia, unspecified; D64.81 Anemia due to antineoplastic chemotherapy; T45.1X5A Adverse effect of antineoplastic and immunosuppressive drugs, initial encounter; J32.0 Chronic maxillary sinusitis; J32.2 Chronic ethmoidal sinusitis; Y84.2 Radiological procedure and radiotherapy as the cause of abnormal reaction of the patient, or of later complication, without mention of misadventure at the time of the procedure; Z92.3 Personal history of irradiation; Z79.4 Long term (current) use of insulin; Z68.24 Body mass index [BMI] 24.0-24.9, adult; Z75.1 Person awaiting admission to adequate facility elsewhere